=== PATIENT | female | born 1940 | race African-American/Black ===

== ENCOUNTER 2016-09-26 23:33 | Inpatient (IN) | payer MEDICARE, MEDICAID ==
[~2016-09-26] VITALS: Ht 170.2 cm; Wt 62.0 kg
[~2016-09-26 23:33] MED LIST: ALBU0.08 NEB; ASPI325T PO; CARV6.25 PO; FLUT1INH INH; FURO40TA PO; LISI-515 PO; NYST15T TOPICAL; SPIR25TA PO; VENTAER INH; ZOCO20TA PO
[2016-09-26 23:35] VITALS: O2SAT 96
[2016-09-26 23:37] VITALS: BP 144/84; PULSE 88; RESP 16; TEMP 98.7; O2SAT 100
[2016-09-26] MEDS ORDERED: RESP: ALBUTEROL 2.5 MG/IPRATROPIUM 0.5 MG NEB (SCH) INH ONE (23:45)
[2016-09-26] MEDS ORDERED: SODIUM CHLORIDE 0.9% FLUSH 10 ML FLUSH IVF PRN (23:45)
[2016-09-26 23:46] VITALS: O2SAT 96
[2016-09-26] MEDS ORDERED: ONDANSETRON HCL 4 MG/2 ML VIAL ONE (23:50)
--- NOTE | 2016-09-26 23:50 | PD ---
HPI Chief Complaint: Respiratory Distress Time Seen by Provider: 23:38 Travel History International Travel<30 days: No Contact w/Intl Traveler<30days: No Traveled to known affect area: No History of Present Illness HPI 76-year-old female presents to the emergency department by EMS transport from home for acute shortness of breath. Patient has history of recurrent CHF and COPD. According to paramedics patient did receive 1 nebulized treatment was identified to have rails and 60 mg of Lasix and one sublingual spray of nitroglycerin and placed on CPAP. Patient has clinically improved. Patient was reportedly diaphoretic. Patient here denies any pain except for some upper abdominal pain. That she cannot describe as far as intensity but it appears comfortable at this time. Patient has distal extremity edema. PFSH Past Medical History Narrative Medical Dyslipidemia CHF COPD CVA diabetes diverticulosis; partial colectomy, appendectomy hysterectomy; tobacco use: Nursing notes reviewed Hx Anticoagulant Therapy: Yes Arthritis: No Asthma: Yes Anxiety: Yes Depression: No Heart Rhythm Problems: No Cancer: No Cardiovascular Problems: Yes (PACEMAKER, CHF) High Cholesterol: Yes Chemotherapy: No Chest Pain: No Congestive Heart Failure: Yes COPD: Yes Cerebrovascular Accident: Yes Diabetes: Yes Patient Takes Glucophage: No Diminished Hearing: No Endocrine: No Gastrointestinal Disorders: Yes (DIVERTICULOSIS) GERD: No Glaucoma: No Genitourinary: No Headaches: No Hepatitis: No Hiatal Hernia: No Hypertension: Yes Immune Disorder: No Kidney Stones: No Musculoskeletal: No Neurologic: Yes Psychiatric: Yes Reproductive: Yes (LOWER ABDOMINAL PAIN) Respiratory: Yes (COPD) Immunizations Current: Yes Migraines: No Myocardial Infarction: No Radiation Therapy: No Renal Failure: No Seizures: No Sleep Apnea: No Thyroid Disease: No Ulcer: No ?: Not Menopausal: Yes : 8 Para: 8 Miscarriage: 0 : 0 Past Surgical History Abdominal Surgery: Yes (PARTIAL COLECTOMY FROM DIVERTICULITIS) AICD: No Appendectomy: Yes Arteriovenous Shunt: No Cardiac Surgery: No Cholecystectomy: Yes Ear Surgery: No Eye Surgery: No Genitourinary Surgery: No Gynecologic Surgery: Yes (HYSTERECTOMY - PT UNSURE IF THEY TOOK HER OVERIES) Hysterectomy: Yes (PARTIAL/2002) Insulin Pump: No Joint Replacement: No Oral Surgery: Yes (ALL TEETH REMOVED) Pacemaker: Yes (MEDTRONIC AF MRI IMPLANTED) Thoracic Surgery: No Other Surgery: Yes Social History Alcohol Use: No (HX OF ) Tobacco Use: Yes ("EVERY NOW AND THEN") Substance Use: No Allergies-Medications (Allergen,Severity, Reaction): Coded Allergies: Morphine (Verified Allergy, Intermediate, Itching, 04/25/16) Reported Meds & Prescriptions Reported Meds & Active Scripts Active Spironolactone 25 Mg Tab 25 Mg PO DAILY Coreg (Carvedilol) 6.25 Mg Tab 6.25 Mg PO Q12HR Aspirin 325 Mg Tab 325 Mg PO DAILY Albuterol Neb (Albuterol Sulfate) 2.5 Mg/3 Ml Neb 2.5 Mg NEB Q4HR PRN Ventolin Hfa 18 GM Inh (Albuterol Sulfate) 90 Mcg/Act Aer 2 Puff INH Q6H PRN Furosemide 40 Mg Tab 40 Mg PO BID Reported Zocor (Simvastatin) 20 Mg Tab 20 Mg PO HS Breo Ellipta Inh (Fluticasone/Vilanterol) 100-25 Mcg/Act Inh 1 Puff INH DAILY Use daily at the same time. Nystatin Topical (Nystatin) 100,000 unit/gm Cream 1 Applic TOPICAL BID Lisinopril 20 Mg Tab 20 Mg PO BID Review of Systems ROS Limitations: Clinical Condition, Poor Historian Physical Exam Narrative GENERAL: Elderly female and respiratory distress; GCS 15 SKIN: Warm and dry. HEAD: Normocephalic. EYES: No scleral icterus. No injection or drainage. NECK: Supple, trachea midline. No JVD or lymphadenopathy. CARDIOVASCULAR: Regular rate and rhythm without murmurs, gallops, or rubs. RESPIRATORY: Breath sounds equal bilaterally. No accessory muscle use. GASTROINTESTINAL: Abdomen soft, non-tender, nondistended. MUSCULOSKELETAL: No cyanosis, bilateral lower leg and pedal edema. BACK: Nontender without obvious deformity. No CVA tenderness. Data Data Last Documented VS Vital Signs Date Time Temp Pulse Resp B/P Pulse Ox O2 Delivery O2 Flow Rate FiO2 09/27/16 02:00 86 16 108/69 96 CPAP 40 09/26/16 23:37 98.7 Orders Complete Blood Count With Diff (09/26/16 23:38) Comprehensive Metabolic Panel (09/26/16 23:38) B-Type Natriuretic Peptide (09/26/16 23:38) Act Partial Throm Time (Ptt) (09/26/16 23:38) Prothrombin Time / Inr (Pt) (09/26/16 23:38) Magnesium (Mg) (09/26/16 23:38) Ckmb (Isoenzyme) Profile (09/26/16 23:38) Troponin I (09/26/16 23:38) Blood Culture (09/26/16 23:38) Iv Access Insert/Monitor (09/26/16 23:38) Electrocardiogram (09/26/16 23:38) Ecg Monitoring (09/26/16 23:38) Oximetry (09/26/16 23:38) Oxygen Administration (09/26/16 23:38) Chest, Single Ap (09/26/16 23:38) Sodium Chloride 0.9% Flush (Ns Flush) (09/26/16 23:45) Albuterol-Ipratropium Neb (Duoneb Neb) (09/26/16 23:45) Lactic Acid (09/26/16 23:38) Urinary Catheter Insert/Apply (09/26/16 23:38) Resp Bipap / Cpap Non Invas Vt (09/26/16 ) Urinalysis - C+S If Indicated (09/26/16 23:38) Ondansetron Inj (Zofran Inj) (09/27/16 00:00) Ondansetron Inj (Zofran Inj) (09/26/16 23:50) Urine Culture (09/26/16 23:50) CKMB (09/26/16 23:50) CKMB% (09/26/16 23:50) Ceftriaxone Inj (Rocephin Inj) (09/27/16 01:45) Arterial Blood Gas (Abg) (09/27/16 ) Admit Order (Ed Use Only) (09/27/16 ) ^ Saline Lock (09/27/16 02:22) Resp Oxygen Karsten C Titrat 1-4 L (09/27/16 ) Notify Dr: Other (09/27/16 02:22) Sodium Chloride 0.9% Flush (Ns Flush) (09/27/16 09:00) Sodium Chloride 0.9% Flush (Ns Flush) (09/27/16 02:30) Labs Laboratory Tests Test 09/26/16 09/27/16 23:50 01:40 White Blood Count 3.8 TH/MM3 Red Blood Count 4.08 MIL/MM3 Hemoglobin 12.2 GM/DL Hematocrit 39.7 % Mean Corpuscular Volume 97.4 FL Mean Corpuscular Hemoglobin 29.9 PG Mean Corpuscular Hemoglobin 30.7 % Concent Red Cell Distribution Width 16.4 % Platelet Count 119 TH/MM3 Mean Platelet Volume 10.7 FL Neutrophils (%) (Auto) 31.3 % Lymphocytes (%) (Auto) 44.0 % Monocytes (%) (Auto) 17.5 % Eosinophils (%) (Auto) 5.8 % Basophils (%) (Auto) 1.4 % Neutrophils # (Auto) 1.2 TH/MM3 Lymphocytes # (Auto) 1.7 TH/MM3 Monocytes # (Auto) 0.7 TH/MM3 Eosinophils # (Auto) 0.2 TH/MM3 Basophils # (Auto) 0.1 TH/MM3 CBC Comment DIFF FINAL Differential Comment Prothrombin Time 13.6 SEC Prothromb Time International 1.2 RATIO Ratio Activated Partial 23.1 SEC Thromboplast Time Urine Color YELLOW Urine Turbidity HAZY Urine pH 7.0 Urine Specific [place] 1.010 Urine Protein 300 mg/dL Urine Glucose (UA) TRACE mg/dL Urine Ketones NEG mg/dL Urine Occult Blood TRACE Urine Nitrite NEG Urine Bilirubin NEG Urine Urobilinogen LESS THAN 2.0 MG/DL Urine Leukocyte Esterase NEG Urine RBC 13 /hpf Urine WBC 9 /hpf Urine Squamous Epithelial 6 /hpf Cells Urine Bacteria OCC /hpf Urine Mucus MANY /lpf Microscopic Urinalysis Comment CATH-CULTURE IND Sodium Level 143 MEQ/L Potassium Level 3.8 MEQ/L Chloride Level 100 MEQ/L Carbon Dioxide Level 35.1 MEQ/L Anion Gap 8 MEQ/L Blood Urea Nitrogen 3 MG/DL Creatinine 0.92 MG/DL Estimat Glomerular Filtration 72 ML/MIN Rate Random Glucose 112 MG/DL Lactic Acid Level 4.7 mmol/L Calcium Level 8.4 MG/DL Magnesium Level 2.1 MG/DL Total Bilirubin 0.7 MG/DL Aspartate Amino Transf 35 U/L (AST/SGOT) Alanine Aminotransferase 22 U/L (ALT/SGPT) Alkaline Phosphatase 127 U/L Total Creatine Kinase 115 U/L Creatine Kinase MB 2.2 NG/ML Troponin I 0.11 NG/ML B-Type Natriuretic Peptide 2367 PG/ML Total Protein 6.9 GM/DL Albumin 3.5 GM/DL Blood Gas Puncture Site RT RADIAL Blood Gas Patient Temperature 98.6 Blood Gas HCO3 36 mmol/L Blood Gas Base Excess 8.3 mmol/L Blood Gas Oxygen Saturation 96 % Arterial Blood pH 7.23 Arterial Blood Partial 89 mmHg Pressure CO2 Arterial Blood Partial 135 mmHG Pressure O2 Arterial Blood Oxygen Content 16.9 Vol % Arterial Blood 2.4 % Carboxyhemoglobin Arterial Blood Methemoglobin 0.5 % Blood Gas Hemoglobin 12.3 G/DL Oxygen Delivery Device BIPAP Blood Gas Ventilator Setting IPAP=12 EPAP=6 Blood Gas Inspired Oxygen 50 % MDM Medical Decision Making Medical Screen Exam Complete: Yes Emergency Medical Condition: Yes Medical Record Reviewed: Yes Interpretation(s) Last Impressions Chest X-Ray 09/26/16 4938 Signed Impressions: Service Date/Time: September 23:53 - CONCLUSION: 1. Cardiomegaly. No acute pulmonary disease. Rod Gutierrez MD CBC & BMP Diagram 09/26/16 23:50 Vital Signs Date Time Temp Pulse Resp B/P Pulse Ox O2 Delivery O2 Flow Rate FiO2 09/26/16 23:46 96 35 09/26/16 23:45 BiPAP 09/26/16 23:40 20 09/26/16 23:37 98.7 88 16 144/84 100 09/26/16 23:35 96 50 abg: bipap 50% resp acidosis pH 7.23 PCO2 89 PO2 135 BiPAP 12/650% rate of 14; FiO2 decreased to 35% and rate increased to 20 Differential Diagnosis Dyspnea, CHF, COPD, ACS, MO,, pneumonia, thoracic/abdominal aortic aneurysm, dissection, mesenteric ischemia, colitis, diverticulitis, UTI, sepsis Narrative Course IV access obtained by EMS transport; patient placed on cardiac monitors; patient placed from CPAP to BiPAP; patient has artery received sublingual nitroglycerin spray 1, 60 mg of Lasix, albuterol treatments times one; lung sounds remained diminished with few rales additional DuoNeb 1 administered Lab values foundry grossly normal range except ABG for respiratory acidosis BiPAP parameters changed At 3:15 AM patient reports she feels clinically improved repeat ABG ordered Critical Care Narrative Aggregate critical care time was 35 minutes. Time to perform other separately billable procedures was not included in the critical care time. My time did not include minutes spent treating any other patients simultaneously or on activities that did not directly contribute to the patient's treatment. The services I provided to this patient were to treat and/or prevent clinically significant deterioration that could result in: Respiratory failure, arrhythmia , myocardial infarction, I provided critical care services requiring my management, as noted below: Chart data review, documentation time, medication orders and management, vital sign assessments/reviewing monitor data, ordering and reviewing lab tests, ordering and interpreting/reviewing x-rays and diagnostic studies, care of the patient and discussion of the patient with the admitting physicians. Physician Communication Physician Communication acceptyed by Dr Rosales Diagnosis Primary Impression: CHF (congestive heart failure) Qualified Code: I50.9 - Acute congestive heart failure, unspecified congestive heart failure type Additional Impressions: COPD (chronic obstructive pulmonary disease) Qualified Code: J43.9 - Pulmonary emphysema, unspecified emphysema type Elevated troponin I level Admitting Information Admitting Physician Requests: Admit Herminia Us MD Sep 26, 2016 23:50 Herminia Us MD Sep 26, 2016 23:50
[2016-09-27] VITALS (39 sets, daily range): BP systolic 92–110; BP diastolic 60–80; PULSE 66–96; RESP 11–24; TEMP 97.1–98.4; O2SAT 86–100
[2016-09-27] MEDS ORDERED: ONDANSETRON HCL 4 MG/2 ML VIAL IV PUSH ONE
[2016-09-27 00:01] LABS: AUTOMATED NEUTROPHIL # 1.2 TH/MM3 (1.8-7.7); BASOPHIL # 0.1 TH/MM3 (0-0.2); BASOPHIL % 1.4 % (0.0-2.0); EOSINOPHIL # 0.2 TH/MM3 (0-0.4); EOSINOPHIL % 5.8 % (0.0-4.0); HEMATOCRIT 39.7 % (35.0-46.0); HEMO FLAGS DIFF FINAL; LYMPHOCYTE # 1.7 TH/MM3 (1.0-4.8); MEAN CELL VOLUME 97.4 FL (80.0-100.0); MEAN CORPUSCULAR HEMOGLOBIN 29.9 PG (27.0-34.0); MEAN CORPUSCULAR HGB CONC 30.7 % (32.0-36.0); MONO % 17.5 % (0.0-8.0); NEUT % 31.3 % (16.0-70.0); PLATELET COUNT 119 TH/MM3 (150-450); RED BLOOD COUNT 4.08 MIL/MM3 (4.00-5.30); RED CELL DISTRIBUTION WIDTH 16.4 % (11.6-17.2); WHITE BLOOD COUNT 3.8 TH/MM3 (4.0-11.0)
[2016-09-27 00:11] LABS: APTT (PATIENT) 23.1 SEC (24.3-30.1); INTERNATIONAL NORMALIZED RATIO 1.2 RATIO; PROTHROMBIN TIME - PATIENT 13.6 SEC (9.8-11.6)
--- NOTE | 2016-09-27 00:19 | RADRPT ---
EXAM DATE/TIME: 09/26/2016 23:53 [facility] COMPARISON: CHEST SINGLE AP, April 25, 2016, 9:50. INDICATIONS : Pt having chest pain and shortness of breath. MEDICAL HISTORY : Chronic obstructive pulmonary disease. Congestive heart failure. SURGICAL HISTORY : Pacemaker. ENCOUNTER: Initial ACUITY: 1 day PAIN SCORE: 7/10 LOCATION: Bilateral chest FINDINGS: The cardiac silhouette is enlarged in transverse diameter. A defibrillator device is in place via a l eft sided approach. The lungs are free of acute parenchymal opacity. No effusions are identified. CONCLUSION: 1. Cardiomegaly. No acute pulmonary disease. Rod Gutierrez MD on September 27, 2016 at 0:17 Board Certified Radiologist. This report was verified electronically.
[2016-09-27 00:21] LABS: BACTERIA, URINE OCC /hpf; BLOOD, URINE TRACE (NEG); COMMENT (UR) CATH-CULTURE IND; CULTURE IF INDICATED CATH CULTURE IND; GLUCOSE,URINE TRACE mg/dL (NEG); KETONE, URINE NEG (NEG); MUCUS URINE MANY /lpf (OCC); NITRITE,URINE NEG (NEG); SQUAMOUS EPITHELIAL CELL URINE 6 /hpf (0-5); URINE COLOR YELLOW (YELLW/STRAW)
[2016-09-27 00:22] LABS: ALKALINE PHOSPHATASE 127 U/L (45-117); CREATINE KINASE 115 U/L (26-192); TOTAL BILIRUBIN ADULT 0.7 MG/DL (0.2-1.0)
[2016-09-27 00:25] LABS: ALT (GPT) 22 U/L (10-53); ANION GAP 8 MEQ/L (5-15); AST (GOT) 35 U/L (15-37); BICARBONATE 35.1 MEQ/L (21.0-32.0); BLOOD UREA NITROGEN 3 MG/DL (7-18); CHLORIDE 100 MEQ/L (98-107); GLOMERULAR FILTRATION RATE 72 ML/MIN (>89); MAGNESIUM 2.1 MG/DL (1.5-2.5); POTASSIUM 3.8 MEQ/L (3.5-5.1); SODIUM (NA) 143 MEQ/L (136-145)
[2016-09-27 00:34] LABS: CKMB 2.2 NG/ML (0.5-3.6)
[2016-09-27] MEDS ORDERED: cefTRIAXone INJ 1,000 MG in SODIUM CHLORIDE 0.9% INJ 100 ML IV ONE (01:45)
[2016-09-27 02:01] LABS: BLOOD GAS BASE EXCESS 8.3 mmol/L (-2-2); BLOOD GAS CARBOXYHEMOGLOBIN 2.4 % (0-4); BLOOD GAS HCO3 36 mmol/L (22-26); BLOOD GAS METHEMOGLOBIN 0.5 % (0-2); BLOOD GAS O2 HGB SATURATION 96 % (90-100); BLOOD GAS OXYGEN CONTENT 16.9 Vol % (12.0-20.0); BLOOD GAS PCO2 89 mmHg (38-42); BLOOD GAS PO2 135 mmHG (61-120); BLOOD GAS TOTAL HGB 12.3 G/DL (12.0-16.0); CRITICAL VALUE YES; OXYGEN DEVICE BIPAP; TEMP CORR TO 98.6
[2016-09-27 02:02] LABS: DRAW SITE RT RADIAL; FIO2 50 %; NUMBER OF ARTERIAL PUNCTURES 1; STAT YES; ULNAR PULSE PRESENT; VENT SETTINGS IPAP=12 EPAP=6
[2016-09-27] MEDS ORDERED: SODIUM CHLORIDE 0.9% FLUSH 10 ML FLUSH IV FLUSH PRN (02:30)
[2016-09-27] MEDS ORDERED: SODIUM CHLORIDE 0.9% FLUSH 10 ML FLUSH IVF PRN (02:30)
[2016-09-27] MEDS ORDERED: NALOXONE HCL 0.4 MG/ML AMP IV PRN (02:30)
[2016-09-27 03:27] LABS: BLOOD GAS BASE EXCESS 10.1 mmol/L (-2-2); BLOOD GAS CARBOXYHEMOGLOBIN 2.6 % (0-4); BLOOD GAS HCO3 37 mmol/L (22-26); BLOOD GAS METHEMOGLOBIN 0.6 % (0-2); BLOOD GAS O2 HGB SATURATION 93 % (90-100); BLOOD GAS OXYGEN CONTENT 16.8 Vol % (12.0-20.0); BLOOD GAS PCO2 86 mmHg (38-42); BLOOD GAS PO2 86 mmHG (61-120); BLOOD GAS TOTAL HGB 12.9 G/DL (12.0-16.0); CRITICAL VALUE YES; DRAW SITE RT FEMORAL; FIO2 40 %; NUMBER OF ARTERIAL PUNCTURES 1; OXYGEN DEVICE BIPAP; STAT YES; TEMP CORR TO 98.6; VENT SETTINGS IPAP=12 EPAP=6
--- NOTE | 2016-09-27 04:31 | HHI.HP ---
[facility] Physician Abeba Ramirez MD Admission Diagnosis CHF; copd; elevated troponin I Diagnoses: Chief Complaint: Shortness of breath Travel History International Travel<30 Days: No Contact w/Intl Traveler <30 Da: No Traveled to Known Affected Are: No History of Present Illness History from patient, your physician communication, and review of medical records. Patient reported that she came to the hospital because she was not able to breathe all of a sudden last night. She states that she has been coughing for past 2 days as well. Whitish sputum. No fever. Reports of diarrhea for past 2 days but only reports of once a day episodes. Reports initially that diarrhea was black in color. Nurse at the bedside stated that patient's major bowel movement which is soft and brown in color. could not breathe all of a sudden lst night Apart from the above, patient denies any chest pain/palpitations/dizziness/ syncopal episodes. Denies any hematemesis/hematochezia. Denies any blood in her urine. Next I denies any urinary burning or pain on urination. Patient was initially brought in by EMS on C Pap as she was found to be acutely dyspneic and struggling to breathe at home. He had given her 60 mg IV Lasix at that time. She has diuresed about 1 L total. In the emergency room, patient's blood gas revealed acute CO2 retention as well. However patient's mental status remains to be well. Patient states that she is chronically on 2 L nasal cannula at home at nighttime. Review of Systems Except as stated in HPI: all other systems reviewed are Neg Past Family Social History Past Medical History Hypertension Hyperlipidemia Diabetes COPDon home oxygen on 2 L at night CHFEF of 15-20% by echo March 2016 Status post AICD History of diverticulosis Past Surgical History Partial colectomy AICD placements Cholecystectomy Hysterectomy Allergies: Coded Allergies: Morphine (Verified Allergy, Intermediate, Itching, 04/25/16) Family History none that she coudl remember Social History smokes 5 cigarettes a day still denies etoh or drugs Physical Exam Vital Signs Vital Signs Date Time Temp Pulse Resp B/P Pulse Ox O2 Delivery O2 Flow Rate FiO2 09/27/16 03:45 95 4.00 09/27/16 03:00 88 18 106/66 93 CPAP 40 09/27/16 02:45 96 40 09/27/16 02:00 100 40 09/27/16 02:00 86 16 108/69 96 CPAP 40 09/27/16 01:00 72 11 98/64 98 CPAP 50 09/27/16 00:00 76 15 106/71 86 CPAP 35 09/26/16 23:46 96 35 09/26/16 23:45 BiPAP 09/26/16 23:40 20 09/26/16 23:37 98.7 88 16 144/84 100 09/26/16 23:35 96 50 Physical Exam GENERAL: This is a well-nourished, well-developed patient, in no apparent distress. On BiPAP. Quite comfortable. SKIN: No rashes, ecchymoses or lesions. Cool and dry. HEAD: Atraumatic. Normocephalic. No temporal or scalp tenderness. EYES: No scleral icterus. No injection or drainage. ENT: Nose without bleeding, purulent drainage or septal hematoma Airway patent. NECK: Trachea midline. No JVD Supple, nontender, no meningeal signs. CARDIOVASCULAR: Regular rate and rhythm without murmurs, gallops, or rubs. RESPIRATORY: Bilaterally decreased air entry. Limited exam due to BiPAP sounds. GASTROINTESTINAL: Abdomen soft, non-tender, nondistended. No guarding. MUSCULOSKELETAL: Extremities without clubbing, cyanosis, or edema. No calf tenderness. NEUROLOGICAL: Awake and alert. Motor and sensory grossly within normal limits Normal speech. Laboratory Laboratory Tests Test 09/26/16 09/27/16 09/27/16 23:50 01:40 03:20 White Blood Count 3.8 Red Blood Count 4.08 Hemoglobin 12.2 Hematocrit 39.7 Mean Corpuscular Volume 97.4 Mean Corpuscular Hemoglobin 29.9 Mean Corpuscular Hemoglobin 30.7 Concent Red Cell Distribution Width 16.4 Platelet Count 119 Mean Platelet Volume 10.7 Neutrophils (%) (Auto) 31.3 Lymphocytes (%) (Auto) 44.0 Monocytes (%) (Auto) 17.5 Eosinophils (%) (Auto) 5.8 Basophils (%) (Auto) 1.4 Neutrophils # (Auto) 1.2 Lymphocytes # (Auto) 1.7 Monocytes # (Auto) 0.7 Eosinophils # (Auto) 0.2 Basophils # (Auto) 0.1 CBC Comment DIFF FINAL Differential Comment Prothrombin Time 13.6 Prothromb Time International 1.2 Ratio Activated Partial 23.1 Thromboplast Time Urine Color YELLOW Urine Turbidity HAZY Urine pH 7.0 Urine Specific [place] 1.010 Urine Protein 300 Urine Glucose (UA) TRACE Urine Ketones NEG Urine Occult Blood TRACE Urine Nitrite NEG Urine Bilirubin NEG Urine Urobilinogen LESS THAN 2.0 Urine Leukocyte Esterase NEG Urine RBC 13 Urine WBC 9 Urine Squamous Epithelial 6 Cells Urine Bacteria OCC Urine Mucus MANY Microscopic Urinalysis Comment CATH-CULTURE IND Sodium Level 143 Potassium Level 3.8 Chloride Level 100 Carbon Dioxide Level 35.1 Anion Gap 8 Blood Urea Nitrogen 3 Creatinine 0.92 Estimat Glomerular Filtration 72 Rate Random Glucose 112 Lactic Acid Level 4.7 Calcium Level 8.4 Magnesium Level 2.1 Total Bilirubin 0.7 Aspartate Amino Transf 35 (AST/SGOT) Alanine Aminotransferase 22 (ALT/SGPT) Alkaline Phosphatase 127 Total Creatine Kinase 115 Creatine Kinase MB 2.2 Troponin I 0.11 B-Type Natriuretic Peptide 2367 Total Protein 6.9 Albumin 3.5 Blood Gas Puncture Site RT RADIAL RT FEMORAL Blood Gas Patient Temperature 98.6 98.6 Blood Gas HCO3 36 37 Blood Gas Base Excess 8.3 10.1 Blood Gas Oxygen Saturation 96 93 Arterial Blood pH 7.23 7.26 Arterial Blood Partial 89 86 Pressure CO2 Arterial Blood Partial 135 86 Pressure O2 Arterial Blood Oxygen Content 16.9 16.8 Arterial Blood 2.4 2.6 Carboxyhemoglobin Arterial Blood Methemoglobin 0.5 0.6 Blood Gas Hemoglobin 12.3 12.9 Oxygen Delivery Device BIPAP BIPAP Blood Gas Ventilator Setting IPAP=12 EPAP=6 IPAP=12 EPAP=6 Blood Gas Inspired Oxygen 50 40 Date/Time Procedure Status Source Growth 09/26/16 23:50 Urine Culture Worksheet Urine Catheterized Urine Pending 09/26/16 23:50 Aerobic Blood Culture Received Blood Peripheral Pending 09/26/16 23:50 Anaerobic Blood Culture Received Blood Peripheral Pending Result Diagram: 09/26/16 2350 09/26/16 2350 Imaging Last 48 hours Impressions Chest X-Ray 09/26/16 2338 Signed Impressions: Service Date/Time: September 23:53 - CONCLUSION: 1. Cardiomegaly. No acute pulmonary disease. Rod Gutierrez MD Assessment and Plan Problem List: (1) Acute systolic (congestive) heart failure ICD Code: I50.21 Status: Acute (2) SOB (shortness of breath) ICD Code: R06.02 Status: Acute Assessment and Plan Impression: Acute hypoxemic and hypercapnic respiratory failure Acute on chronic systolic heart failure COPD exacerbation Possible medications noncompliance. When asked about whether she is missing her diuretics doses at home, she answered yes. Plan: Serial cardiac enzymes and EKGs. Continue diuresis with Lasix 40 mg IV every 12 hours. Continue Aldactone. Continue nebulizers. Will monitor for fever and evidence of infection. Patient received Rocephin in ER. For now, I would not give antibiotics yet. Her main problem is more of CHF exacerbation. ABG results reviewed. Increased BiPAP to 15 with decrease of FiO2 to 35%. Will repeat ABG in about an hour after this setting changed. Otherwise resume home medications. DVT prophylaxiswith Lovenox. GI prophylaxison pantoprazole. Discussed Condition With Patient, ER physician, patient's nurse Physician Certification 2 Midnight Certification Type: Admission for Inpatient Services Order for Inpatient Services The services are ordered in accordance with Medicare regulations or non- Medicare payer requirements, as applicable. In the case of services not specified as inpatient-only, they are appropriately provided as inpatient services in accordance with the 2-midnight benchmark. Estimated LOS (days): 3 days is the estimated time the patient will need to remain in the hospital, assuming treatment plan goals are met and no additional complications. Post-Hospital Plan: Home Abraham Rosales MD Sep 27, 2016 04:31
[2016-09-27 04:50] LABS: CKMB 1.8 NG/ML (0.5-3.6)
[2016-09-27] MEDS ORDERED: RESP: ALBUTEROL 2.5 MG/IPRATROPIUM 0.5 MG NEB (PRN) NEB (05:45)
[2016-09-27] MEDS ORDERED: GLUCAGON 1 MG/ML VIAL OTHER PRN (06:00)
[2016-09-27] MEDS ORDERED: RESP: ALBUTEROL 2.5 MG/3 ML NEB (PRN) NEB (06:00)
[2016-09-27] MEDS ORDERED: methylPREDNISolone SOD SUCC 40 MG/1 ML VIAL IV PUSH SCH (06:00)
[2016-09-27] MEDS ORDERED: DEXTROSE 50% IN WATER 50 ML VIAL(D50) IV PRN (06:00)
[2016-09-27] MEDS: INSULIN ASPART SUPPLEMENTAL SCALE SQ SCH ×4 (06:08→22:02)
[2016-09-27 06:10] LABS: BLOOD GAS BASE EXCESS 9.3 mmol/L (-2-2); BLOOD GAS CARBOXYHEMOGLOBIN 2.8 % (0-4); BLOOD GAS HCO3 35 mmol/L (22-26); BLOOD GAS METHEMOGLOBIN 0.9 % (0-2); BLOOD GAS O2 HGB SATURATION 92 % (90-100); BLOOD GAS OXYGEN CONTENT 16.2 Vol % (12.0-20.0); BLOOD GAS PCO2 70 mmHg (38-42); BLOOD GAS PO2 83 mmHg (61-120); BLOOD GAS TOTAL HGB 12.4 G/DL (12.0-16.0); TEMP CORR TO 98.6
[2016-09-27 06:11] LABS: CRITICAL VALUE YES; OXYGEN DEVICE BIPAP
[2016-09-27 06:12] LABS: DRAW SITE RT BRACHIAL; FIO2 30 %; NUMBER OF ARTERIAL PUNCTURES 1; STAT NO; VENT SETTINGS IPAP15/EPAP5
[2016-09-27] MEDS: PANTOPRAZOLE SOD 40 MG DELAYED RELEASE TAB PO SCH (06:25)
[2016-09-27] MEDS: RESP: ALBUTEROL 2.5 MG/IPRATROPIUM 0.5 MG NEB (SCH) NEB ×3 (08:49→20:25)
[2016-09-27] MEDS ORDERED: FUROSEMIDE 40 MG/4 ML VIAL IV PUSH SCH (09:00)
[2016-09-27] MEDS ORDERED: SODIUM CHLORIDE 0.9% FLUSH 10 ML FLUSH IV FLUSH SCH (09:00)
[2016-09-27] MEDS: LISINOPRIL 20 MG TAB PO SCH ×2 (10:40→21:00)
[2016-09-27] MEDS: ENOXAPARIN SODIUM 40 MG/0.4 ML SYRINGE SQ SCH (10:40)
[2016-09-27] MEDS: CARVEDILOL 6.25 MG TAB PO SCH ×2 (10:40→21:00)
[2016-09-27] MEDS: ASPIRIN 325 MG TAB PO SCH (10:41)
[2016-09-27] MEDS: FLUTICASONE 100 MCG/VILANTEROL 25 MCG INHALER INH SCH (10:41)
[2016-09-27] MEDS: SODIUM CHLORIDE 0.9% FLUSH 10 ML FLUSH IV FLUSH SCH ×2 (10:41→20:41)
[2016-09-27] MEDS: SPIRONOLACTONE 25 MG TAB PO SCH (10:41)
--- NOTE | 2016-09-27 11:18 | HHI.PR ---
Subjective Remarks f/u SOB very good UO, -1.5 L overnight, patient feels better, on 4 L, baseline is 2 L, still coughing, lower extremity swelling better. Afebrile. Off BiPAP since 10 AM Objective Vitals Vital Signs Date Time Temp Pulse Resp B/P Pulse Ox O2 Delivery O2 Flow Rate FiO2 09/27/16 08:55 98 30 09/27/16 06:20 99 Bi-Pap 30 09/27/16 06:19 99 30 09/27/16 06:00 95 09/27/16 05:00 90 09/27/16 04:35 99 09/27/16 04:30 87 09/27/16 04:03 96 40 09/27/16 04:00 96 Bi-Pap 40 09/27/16 04:00 97.1 90 24 108/74 96 09/27/16 03:45 95 4.00 09/27/16 03:00 88 18 106/66 93 CPAP 40 09/27/16 02:45 96 40 09/27/16 02:00 100 40 09/27/16 02:00 86 16 108/69 96 CPAP 40 09/27/16 01:00 72 11 98/64 98 CPAP 50 09/27/16 00:00 76 15 106/71 86 CPAP 35 09/26/16 23:46 96 35 09/26/16 23:45 BiPAP 09/26/16 23:40 20 09/26/16 23:37 98.7 88 16 144/84 100 09/26/16 23:35 96 50 I/O 09/26/16 09/26/16 09/26/16 09/27/16 09/27/16 09/27/16 07:00 15:00 23:00 07:00 15:00 23:00 Intake Total 100 ml Output Total 2575 ml Balance -2475 ml Intake IV Total 100 ml Output Urine Total 2575 ml # Voids 0 # Bowel Movements 1 Result Diagram: 09/26/16234909/26/162349 Objective Remarks Not in distress, well-nourished, looks stated age, on oxygen via nasal cannula, coughing. PERRL, pink conjunctiva without injection, anicteric Nose without bleeding, airway patent, oropharynx clear Supple neck, no masses or thyromegaly, trachea midline Normal rate and regular rhythm, no murmurs gallops or rubs appreciated. Bilateral crackles at bases specially on the left Normal bowel sounds, soft, non-tender, nondistended, no guarding. Extremities without clubbing, cyanosis, 1+ edema No rash of generalized distribution. Skin is warm and dry. AAO x3, no cranial nerve deficits, moves all 4 extremities, no focal neurologic deficits Normal mood, appropriate affect A/P Problem List: (1) Acute systolic (congestive) heart failure ICD Code: I50.21 Status: Acute (2) SOB (shortness of breath) ICD Code: R06.02 Status: Acute Assessment and Plan This is a 76-year-old female presenting with acute shortness of breath Acute hypoxemic and hypercapnic respiratory failure secondary to acute and chronic systolic congestive heart failure-off BiPAP since 10 AM. Patient also has noncompliance. Chest x-ray unremarkable. Continue Aldactone, increase Lasix to every 8 hours, recheck BMP tomorrow. Monitor urine output. Echocardiogram in March 2016 showed ejection fraction of 15-20%. Continue Coreg and lisinopril. Doubt COPD exacerbation-continue nebulizers, BiPAP as needed. No steroids for now. No need for antibiotics. Hypercapnic respiratory failure-BiPAP as needed, Taper oxygen. Repeat ABG in a few hours. DVT prophylaxiswith Lovenox. GI prophylaxison pantoprazole. Discharge Planning On 2 L of oxygen at home, discharge in 1-2 days Lizzie Fabian MD Sep 27, 2016 11:18
[2016-09-27 12:09] LABS: BLOOD GAS CARBOXYHEMOGLOBIN 2.6 % (0-4); BLOOD GAS HCO3 34 mmol/L (22-26); BLOOD GAS O2 HGB SATURATION 88 % (90-100); BLOOD GAS OXYGEN CONTENT 15.1 Vol % (12.0-20.0); BLOOD GAS PCO2 72 mmHg (38-42); BLOOD GAS PO2 65 mmHg (61-120); BLOOD GAS TOTAL HGB 12.3 G/DL (12.0-16.0); TEMP CORR TO 98.6
[2016-09-27 12:10] LABS: CRITICAL VALUE YES; DRAW SITE RT BRACHIAL; LITER FLOW 4 L/M; NUMBER OF ARTERIAL PUNCTURES 2; OXYGEN DEVICE NASAL CANNULA; STAT NO
--- NOTE | 2016-09-27 12:19 | EKG ---
Date Performed: 09/26/2016 Time Performed: 23:54:33 PTAGE: 76 years EKG: Sinus rhythm WITH FIRST DEGREE AV BLOCK MARKED LEFT AXIS DEVIATION ANTEROSEPTAL MYOCARDIAL INFARCTION MODERATE T- WAVE ABNORMALITY, CONSIDER LATERAL ISCHEMIA ABNORMAL ECG Compared to prior tracing no significant donovan nge PREVIOUS TRACING : 04/25/2016 10.05 DOCTOR: Trevor Dominguez Interpretating Date/Time 09/27/2016 12:17:35
[2016-09-27] MEDS: FUROSEMIDE 40 MG/4 ML VIAL IV PUSH SCH (17:11)
[2016-09-27] MEDS ORDERED: SODIUM CHLORID 0.9% 500 ML INJ 500 ML IV ONE ×2 (20:15→22:15)
[2016-09-27 21:41] LABS: POTASSIUM 3.6 MEQ/L (3.5-5.1)
[2016-09-27 21:42] LABS: MAGNESIUM 1.6 MG/DL (1.5-2.5)
[2016-09-27] MEDS: PRAVASTATIN SOD 40 MG TAB PO SCH (22:00)
[2016-09-27] MEDS: cefTRIAXone INJ 1,000 MG in SODIUM CHLORIDE 0.9% INJ 100 ML IV SCH (22:01)
[2016-09-27] MEDS ORDERED: POTASSIUM CHLORIDE 20 MEQ CONTROLLED RELEASE TAB PO ONE (22:15)
[2016-09-28] VITALS (29 sets, daily range): BP systolic 79–94; BP diastolic 54–65; PULSE 70–93; RESP 16–20; TEMP 97.1–98.4; O2SAT 90–100
[2016-09-28] MEDS: FUROSEMIDE 40 MG/4 ML VIAL IV PUSH SCH (00:58)
[2016-09-28] MEDS: RESP: ALBUTEROL 2.5 MG/IPRATROPIUM 0.5 MG NEB (SCH) NEB ×4 (03:29→21:17)
[2016-09-28 05:33] LABS: AUTOMATED NEUTROPHIL # 2.5 TH/MM3 (1.8-7.7); BASOPHIL % 0.6 % (0.0-2.0); HEMATOCRIT 37.7 % (35.0-46.0); HEMO FLAGS DIFF FINAL; LYMPH % 15.7 % (9.0-44.0); LYMPHOCYTE # 0.6 TH/MM3 (1.0-4.8); MEAN CELL VOLUME 96.4 FL (80.0-100.0); MEAN CORPUSCULAR HEMOGLOBIN 30.3 PG (27.0-34.0); MEAN CORPUSCULAR HGB CONC 31.4 % (32.0-36.0); MONO % 14.2 % (0.0-8.0); NEUT % 69.5 % (16.0-70.0); PLATELET COUNT 107 TH/MM3 (150-450); RED BLOOD COUNT 3.91 MIL/MM3 (4.00-5.30); RED CELL DISTRIBUTION WIDTH 15.6 % (11.6-17.2); WHITE BLOOD COUNT 3.6 TH/MM3 (4.0-11.0)
[2016-09-28 05:44] LABS: BICARBONATE 37.6 MEQ/L (21.0-32.0)
[2016-09-28] MEDS: INSULIN ASPART SUPPLEMENTAL SCALE SQ SCH ×4 (06:01→20:26)
[2016-09-28] MEDS: PANTOPRAZOLE SOD 40 MG DELAYED RELEASE TAB PO SCH (06:01)
--- NOTE | 2016-09-28 08:23 | HHI.PR ---
Subjective Remarks f/u CHF and UTI patient had episodes of hypotension overnight, given bolus of NS, afebrile, denies any dysuria, frequency or urgency prior to admission. Shortness of breath is better, cough is better. Objective Vitals Vital Signs Date Time Temp Pulse Resp B/P Pulse Ox O2 Delivery O2 Flow Rate FiO2 09/28/16 07:00 100 Bi-Pap 09/28/16 07:00 87 09/28/16 07:00 97.1 72 18 83/65 100 09/28/16 06:00 75 09/28/16 05:00 80 09/28/16 04:02 100 30 09/28/16 04:00 92 09/28/16 03:30 97.5 71 20 91/64 100 09/28/16 03:30 99 Bi-Pap 40 09/28/16 03:00 87 09/28/16 02:00 83 09/28/16 01:05 97 40 09/28/16 01:00 87 09/28/16 00:00 86 09/27/16 23:05 97.4 91 20 100/67 99 09/27/16 23:05 99 Bi-Pap 40 09/27/16 23:00 83 09/27/16 23:00 100 BiPAP 40 09/27/16 23:00 100 40 09/27/16 22:00 92 09/27/16 21:00 78 09/27/16 20:26 98 40 09/27/16 20:00 72 09/27/16 19:30 97.5 86 18 94/63 98 09/27/16 19:30 98 Bi-Pap 40 09/27/16 19:00 76 09/27/16 18:21 70 09/27/16 17:29 94 09/27/16 16:23 83 09/27/16 15:51 99 Bi-Pap 40 09/27/16 15:44 96 40 09/27/16 15:40 97.4 77 16 96/67 99 09/27/16 15:00 79 09/27/16 14:00 84 09/27/16 13:00 66 09/27/16 12:23 95 Bi-Pap 40 09/27/16 12:23 93 40 09/27/16 12:05 98.4 92 16 92/60 96 09/27/16 12:04 95 09/27/16 11:57 95 Nasal Cannula 4.00 09/27/16 11:00 91 09/27/16 10:00 90 09/27/16 09:00 96 09/27/16 08:55 98 30 I/O 09/27/16 09/27/16 09/27/16 09/28/16 09/28/16 09/28/16 07:00 15:00 23:00 07:00 15:00 23:00 Intake Total 100 ml 720 ml 2060 ml Output Total 2575 ml 1100 ml 1400 ml Balance -2475 ml -380 ml 660 ml Intake Oral 720 ml 960 ml IV Total 100 ml 1100 ml Output Urine Total 2575 ml 1100 ml 1400 ml # Voids 0 # Bowel Movements 1 0 Result Diagram: 09/28/1645609/28/16456 Objective Remarks Not in distress, well-nourished, looks stated age, on oxygen via nasal cannula, coughing. PERRL, pink conjunctiva without injection, anicteric Nose without bleeding, airway patent, oropharynx clear Supple neck, no masses or thyromegaly, trachea midline Normal rate and regular rhythm, no murmurs gallops or rubs appreciated. Bilateral crackles at bases specially on the left Normal bowel sounds, soft, non-tender, nondistended, no guarding. Extremities without clubbing, cyanosis, 1+ edema No rash of generalized distribution. Skin is warm and dry. AAO x3, no cranial nerve deficits, moves all 4 extremities, no focal neurologic deficits Normal mood, appropriate affect A/P Problem List: (1) Acute systolic (congestive) heart failure ICD Code: I50.21 Status: Acute (2) SOB (shortness of breath) ICD Code: R06.02 Status: Acute Assessment and Plan This is a 76-year-old female presenting with acute shortness of breath Acute hypoxemic and hypercapnic respiratory failure secondary to acute and chronic systolic congestive heart failure-off BiPAP since 09/27/16. Patient also noncompliant with diuretics. Chest x-ray unremarkable. Monitor BMP. Monitor urine output. Echocardiogram in March 2016 showed ejection fraction of 15-20%. Continue Coreg, hold lisinopril. Hold diuretics for now. Doubt COPD exacerbation-continue nebulizers, BiPAP as needed. No steroids for now. Sepsis secondary to UTI-patient has leukopenia, hypotension and borderline tachycardia with urine culture growing gram-negative rods. Given IVF. Because of CHF, needs to be very careful with volume resuscitation, patient may be mildly hypotensive as baseline with ejection fraction of about 15%. Ceftriaxone for now, follow-up final urine culture and sensitivities, check lactic acid. Hypercapnic respiratory failure-BiPAP as needed, Taper oxygen. ABG stable Mild troponin elevation-likely demand mediated, flat, denies any chest pain. Mildly elevated creatinine-continue IVF, recheck BMP tomorrow. DVT prophylaxiswith Lovenox. GI prophylaxison pantoprazole. Discharge Planning On 2 L of oxygen at home, discharge in 1-2 days, start physical therapy Lizzie Fabian MD Sep 28, 2016 08:23
[2016-09-28] MEDS ORDERED: MAGNESIUM SULFATE 1 GM PREMIX 100 ML IV ONE (09:00)
[2016-09-28] MEDS ORDERED: methylPREDNISolone SOD SUCC 40 MG/1 ML VIAL IV PUSH SCH (09:00)
[2016-09-28] MEDS: SODIUM CHLORIDE 0.9% FLUSH 10 ML FLUSH IV FLUSH SCH ×2 (09:09→20:30)
[2016-09-28] MEDS: CARVEDILOL 6.25 MG TAB PO SCH ×2 (09:10→20:30)
[2016-09-28] MEDS: ENOXAPARIN SODIUM 40 MG/0.4 ML SYRINGE SQ SCH (09:10)
[2016-09-28] MEDS: ASPIRIN 325 MG TAB PO SCH (09:10)
[2016-09-28] MEDS: FLUTICASONE 100 MCG/VILANTEROL 25 MCG INHALER INH SCH (09:13)
[2016-09-28] MEDS: PRAVASTATIN SOD 40 MG TAB PO SCH (20:28)
[2016-09-29] VITALS (28 sets, daily range): BP systolic 80–110; BP diastolic 39–73; PULSE 73–92; RESP 15–18; TEMP 97.6–98.6; O2SAT 93–97
[2016-09-29] MEDS: cefTRIAXone INJ 1,000 MG in SODIUM CHLORIDE 0.9% INJ 100 ML IV SCH ×2 (00:21→22:06)
[2016-09-29] MEDS: RESP: ALBUTEROL 2.5 MG/IPRATROPIUM 0.5 MG NEB (SCH) NEB ×4 (03:05→20:15)
[2016-09-29] MEDS: PANTOPRAZOLE SOD 40 MG DELAYED RELEASE TAB PO SCH (05:45)
[2016-09-29 05:48] LABS: AUTOMATED NEUTROPHIL # 2.2 TH/MM3 (1.8-7.7); BASOPHIL # 0.1 TH/MM3 (0-0.2); BASOPHIL % 1.3 % (0.0-2.0); EOSINOPHIL # 0.1 TH/MM3 (0-0.4); EOSINOPHIL % 3.4 % (0.0-4.0); HEMO FLAGS DIFF FINAL; LYMPH % 28.2 % (9.0-44.0); LYMPHOCYTE # 1.2 TH/MM3 (1.0-4.8); MEAN CELL VOLUME 95.2 FL (80.0-100.0); MEAN CORPUSCULAR HEMOGLOBIN 30.1 PG (27.0-34.0); MEAN CORPUSCULAR HGB CONC 31.6 % (32.0-36.0); MONO % 13.2 % (0.0-8.0); NEUT % 53.9 % (16.0-70.0); PLATELET COUNT 107 TH/MM3 (150-450); RED CELL DISTRIBUTION WIDTH 15.9 % (11.6-17.2); WHITE BLOOD COUNT 4.2 TH/MM3 (4.0-11.0)
[2016-09-29] MEDS: INSULIN ASPART SUPPLEMENTAL SCALE SQ SCH ×4 (05:48→21:00)
[2016-09-29 06:01] LABS: POTASSIUM 3.4 MEQ/L (3.5-5.1)
[2016-09-29] MEDS: ENOXAPARIN SODIUM 40 MG/0.4 ML SYRINGE SQ SCH (08:31)
[2016-09-29] MEDS: CARVEDILOL 6.25 MG TAB PO SCH ×2 (08:31→22:05)
[2016-09-29] MEDS: ASPIRIN 325 MG TAB PO SCH (08:31)
[2016-09-29] MEDS: SODIUM CHLORIDE 0.9% FLUSH 10 ML FLUSH IV FLUSH SCH ×2 (08:32→22:05)
[2016-09-29] MEDS: FLUTICASONE 100 MCG/VILANTEROL 25 MCG INHALER INH SCH (08:32)
[2016-09-29] MEDS ORDERED: NITR100C4 PO (08:58)
--- NOTE | 2016-09-29 09:07 | HHI.PR ---
Subjective Remarks f/u CHF and UTI patient feels almost back to normal, denies SOB, no urinary symptoms, afebrile, cough has resolved, wants to go home, borderline hypotensive, manual check SBP 110s now Objective Vitals Vital Signs Date Time Temp Pulse Resp B/P Pulse Ox O2 Delivery O2 Flow Rate FiO2 09/29/16 08:00 87 09/29/16 07:00 92 09/29/16 07:00 93 Nasal Cannula 3.00 09/29/16 07:00 97.9 79 16 80/39 93 09/29/16 06:26 85 09/29/16 05:11 88 09/29/16 04:00 88 09/29/16 03:13 94 Nasal Cannula 3.00 09/29/16 03:13 97.9 83 18 Automatic Cuff 94 09/29/16 03:13 79 09/29/16 02:46 82 09/29/16 01:06 90 09/29/16 00:52 84 09/28/16 23:15 90 Nasal Cannula 3.00 09/28/16 23:15 98.0 82 16 94/62 90 09/28/16 23:00 90 09/28/16 22:45 Nasal Cannula 3.00 09/28/16 22:00 82 09/28/16 21:21 94 30 09/28/16 21:00 76 09/28/16 20:04 98.3 84 16 79/54 93 92/55 09/28/16 20:04 93 Nasal Cannula 3.00 09/28/16 20:04 74 09/28/16 18:00 83 09/28/16 17:00 75 09/28/16 16:00 70 09/28/16 15:00 100 Bi-Pap 09/28/16 15:00 98.4 83 18 86/59 95 09/28/16 15:00 86 09/28/16 14:00 84 09/28/16 13:00 86 09/28/16 12:00 90 09/28/16 11:00 100 Bi-Pap 09/28/16 11:00 83 09/28/16 11:00 98.2 86 18 82/55 95 09/28/16 10:43 92 Nasal Cannula 3.00 09/28/16 10:00 81 I/O 6/3/17 609/28/16 09/29/16 09/29/16 09/29/16 07:00 15:00 23:00 07:00 15:00 23:00 Intake Total 2060 ml 720 ml 460 ml Output Total 1400 ml 300 ml 800 ml Balance 660 ml 420 ml -340 ml Intake Oral 960 ml 720 ml 360 ml IV Total 1100 ml 100 ml Output Urine Total 1400 ml 300 ml 800 ml # Bowel Movements 0 Result Diagram: 09/29/16 04109/29/16411 Objective Remarks Not in distress, well-nourished, looks stated age, on oxygen via nasal cannula, coughing resolved. PERRL, pink conjunctiva without injection, anicteric Normal rate and regular rhythm, no murmurs gallops or rubs appreciated. Occasional crackles on the left base. Normal bowel sounds, soft, non-tender, nondistended, no guarding. Extremities without clubbing, cyanosis, trace to 1+ edema No rash of generalized distribution. Skin is warm and dry. AAO x3, no cranial nerve deficits, moves all 4 extremities, no focal neurologic deficits Normal mood, appropriate affect A/P Problem List: (1) Acute systolic (congestive) heart failure ICD Code: I50.21 Status: Acute (2) SOB (shortness of breath) ICD Code: R06.02 Status: Acute Assessment and Plan This is a 76-year-old female presenting with acute shortness of breath Acute hypoxemic and hypercapnic respiratory failure secondary to acute and chronic systolic congestive heart failure-off BiPAP since 09/27/16. Patient also noncompliant with diuretics. Chest x-ray unremarkable. Monitor BMP. Monitor urine output. Echocardiogram in March 2016 showed ejection fraction of 15-20%. BNP elevated again, difficult volume evaluation since patient is borderline hypotensive but with crackles. Continue Coreg, resume low-dose lisinopril, resume Aldactone and Lasix. It appears that patient has chronic borderline hypotension because of CHF based on previous admissions. Blood pressure is 20 units higher using manual. Recheck BMP tomorrow. Doubt COPD exacerbation-continue nebulizers, BiPAP as needed. No steroids for now. Sepsis secondary to UTI-patient has leukopenia, hypotension and borderline tachycardia with urine culture growing gram-negative rods. Status post IVF. Because of CHF, needs to be very careful with volume resuscitation, patient may be mildly hypotensive as baseline with ejection fraction of about 15%. Urine culture grew Klebsiella sensitive to Macrobid. Stop ceftriaxone, start Macrobid. Lactic acid is negative. Blood culture one out of 4 bottles growing gram-positive pleomorphic rods and gram-positive cocci in chains and clusters. Likely contaminant. Follow-up blood culture tomorrow. Repeat CBC in the morning, remove Ward catheter. Hypercapnic respiratory failure-BiPAP as needed, Taper oxygen. ABG stable, on 2 L at home. Taper. Mild troponin elevation-likely demand mediated, flat, denies any chest pain. Mildly elevated creatinine -recheck BMP tomorrow DVT prophylaxiswith Lovenox. GI prophylaxison pantoprazole. Discharge Planning On 2 L of oxygen at home, discharge tomorrow with home healthcare if blood culture remains to same/contaminant and medically stable Lizzie Fabian MD Sep 29, 2016 09:07
[2016-09-29] MEDS: NITROFURANTOIN MONOHYD MACROCR 100 MG CAP PO SCH ×2 (09:34→18:23)
[2016-09-29] MEDS: FUROSEMIDE 40 MG TAB PO SCH ×2 (09:34→18:24)
[2016-09-29] MEDS: SPIRONOLACTONE 25 MG TAB PO SCH (09:35)
[2016-09-29] MEDS: LISINOPRIL 5 MG TAB PO SCH (09:35)
[2016-09-29] MEDS: PRAVASTATIN SOD 40 MG TAB PO SCH (22:05)
[2016-09-30] VITALS (18 sets, daily range): BP systolic 99–117; BP diastolic 57–74; PULSE 77–96; RESP 18–19; TEMP 97.7–98.2; O2SAT 93–99
[2016-09-30] MEDS: RESP: ALBUTEROL 2.5 MG/IPRATROPIUM 0.5 MG NEB (SCH) NEB ×2 (03:17→08:22)
[2016-09-30 06:42] LABS: AUTOMATED NEUTROPHIL # 1.7 TH/MM3 (1.8-7.7); BASOPHIL # 0.1 TH/MM3 (0-0.2); BASOPHIL % 1.8 % (0.0-2.0); EOSINOPHIL # 0.2 TH/MM3 (0-0.4); EOSINOPHIL % 5.1 % (0.0-4.0); HEMATOCRIT 36.9 % (35.0-46.0); HEMO FLAGS DIFF FINAL; LYMPHOCYTE # 1.2 TH/MM3 (1.0-4.8); MEAN CORPUSCULAR HEMOGLOBIN 29.9 PG (27.0-34.0); MEAN CORPUSCULAR HGB CONC 31.5 % (32.0-36.0); MONO % 15.1 % (0.0-8.0); PLATELET COUNT 110 TH/MM3 (150-450); RED BLOOD COUNT 3.88 MIL/MM3 (4.00-5.30); RED CELL DISTRIBUTION WIDTH 15.5 % (11.6-17.2); WHITE BLOOD COUNT 3.7 TH/MM3 (4.0-11.0)
[2016-09-30] MEDS: INSULIN ASPART SUPPLEMENTAL SCALE SQ SCH ×2 (06:49→11:00)
[2016-09-30] MEDS: PANTOPRAZOLE SOD 40 MG DELAYED RELEASE TAB PO SCH (06:52)
[2016-09-30 07:02] LABS: BICARBONATE 41.6 MEQ/L (21.0-32.0); POTASSIUM 3.4 MEQ/L (3.5-5.1)
[2016-09-30] MEDS: ASPIRIN 325 MG TAB PO SCH (08:54)
--- NOTE | 2016-09-30 08:54 | HHI.FF ---
Face to Face Verification Diagnosis: (1) CHF (congestive heart failure) (2) COPD (chronic obstructive pulmonary disease) (3) SOB (shortness of breath) (4) Elevated troponin I level Physical Therapy Order: Evaluate and Treat, Improve ambulation, Strength and gait training Home Health Nursing Order: Medical education Signs/symptoms of disease process CHF education Oxygen administration education Nursing assessment with vital signs I have seen patient Kapil Chapa on 09/30/16. My clinical findings support the need for the requested home health care services because: Patient has SOB Deconditioned w/ increased weakness Limited ability to care for self I certify that my clinical findings support that this patient is homebound because: Hx COPD- exertion dyspnea/weakness Poor cardiac reserve Ammy Koch MD Sep 30, 2016 08:54
[2016-09-30] MEDS: LISINOPRIL 5 MG TAB PO SCH (08:56)
[2016-09-30] MEDS: CARVEDILOL 6.25 MG TAB PO SCH (08:56)
[2016-09-30] MEDS: NITROFURANTOIN MONOHYD MACROCR 100 MG CAP PO SCH (08:56)
[2016-09-30] MEDS: ENOXAPARIN SODIUM 40 MG/0.4 ML SYRINGE SQ SCH (08:56)
[2016-09-30] MEDS: FUROSEMIDE 40 MG TAB PO SCH (08:56)
[2016-09-30] MEDS: SPIRONOLACTONE 25 MG TAB PO SCH (08:57)
[2016-09-30] MEDS: SODIUM CHLORIDE 0.9% FLUSH 10 ML FLUSH IV FLUSH SCH (08:59)
[2016-09-30] MEDS: FLUTICASONE 100 MCG/VILANTEROL 25 MCG INHALER INH SCH (08:59)
--- NOTE | 2016-09-30 12:35 | HHI.DS ---
Discharge Summary Admission Date Sep 27, 2016 at 02:24 Discharge Date: Sep 30, 2016 Admitting Diagnosis CHF; copd; elevated troponin I (1) Acute systolic (congestive) heart failure ICD Code: I50.21 (2) SOB (shortness of breath) ICD Code: R06.02 Procedures None Brief History - From Admission History from patient, your physician communication, and review of medical records. Patient reported that she came to the hospital because she was not able to breathe all of a sudden last night. She states that she has been coughing for past 2 days as well. Whitish sputum. No fever. Reports of diarrhea for past 2 days but only reports of once a day episodes. Reports initially that diarrhea was black in color. Nurse at the bedside stated that patient's major bowel movement which is soft and brown in color. could not breathe all of a sudden lst night Apart from the above, patient denies any chest pain/palpitations/dizziness/ syncopal episodes. Denies any hematemesis/hematochezia. Denies any blood in her urine. Next I denies any urinary burning or pain on urination. Patient was initially brought in by EMS on C Pap as she was found to be acutely dyspneic and struggling to breathe at home. He had given her 60 mg IV Lasix at that time. She has diuresed about 1 L total. In the emergency room, patient's blood gas revealed acute CO2 retention as well. However patient's mental status remains to be well. Patient states that she is chronically on 2 L nasal cannula at home at nighttime. CBC/BMP: 09/30/16 0555 09/30/16 0555 Significant Findings Laboratory Tests Test 09/28/16 09/29/16 09/30/16 04:57 04:12 05:55 White Blood Count 3.6 TH/MM3 3.7 TH/MM3 (4.0-11.0) (4.0-11.0) Red Blood Count 3.91 MIL/MM3 3.88 MIL/MM3 (4.00-5.30) (4.00-5.30) Mean Corpuscular Hemoglobin 31.4 % 31.6 % 31.5 % Concent (32.0-36.0) (32.0-36.0) (32.0-36.0) Platelet Count 107 TH/MM3 107 TH/MM3 110 TH/MM3 (150-450) (150-450) (150-450) Monocytes (%) (Auto) 14.2 % 13.2 % 15.1 % (0.0-8.0) (0.0-8.0) (0.0-8.0) Lymphocytes # (Auto) 0.6 TH/MM3 (1.0-4.8) Carbon Dioxide Level 37.6 MEQ/L 39.0 MEQ/L 41.6 MEQ/L (21.0-32.0) (21.0-32.0) (21.0-32.0) Anion Gap 2 MEQ/L (5-15) 3 MEQ/L (5-15) 3 MEQ/L (5-15) Creatinine 1.14 MG/DL 1.05 MG/DL (0.50-1.00) (0.50-1.00) Estimat Glomerular Filtration 56 ML/MIN (>89) 62 ML/MIN (>89) 80 ML/MIN (>89) Rate Random Glucose 128 MG/DL (74-106) Calcium Level 8.2 MG/DL 8.2 MG/DL (8.5-10.1) (8.5-10.1) B-Type Natriuretic Peptide 1119 PG/ML 585 PG/ML (0-100) (0-100) Potassium Level 3.4 MEQ/L 3.4 MEQ/L (3.5-5.1) (3.5-5.1) Chloride Level 94 MEQ/L 95 MEQ/L (98-107) (98-107) Eosinophils (%) (Auto) 5.1 % (0.0-4.0) Neutrophils # (Auto) 1.7 TH/MM3 (1.8-7.7) Imaging Last Impressions Chest X-Ray 09/26/16 4684 Signed Impressions: Service Date/Time: September 23:53 - CONCLUSION: 1. Cardiomegaly. No acute pulmonary disease. Rod Gutierrez MD PE at Discharge Not in distress, well-nourished, looks stated age, on oxygen via nasal cannula. PERRL, pink conjunctiva without injection, anicteric Normal rate and regular rhythm, no murmurs gallops or rubs appreciated. Occasional crackles on the left base. Normal bowel sounds, soft, non-tender, nondistended, no guarding. Extremities without clubbing, cyanosis, trace to 1+ edema No rash of generalized distribution. Skin is warm and dry. AAO x3, no cranial nerve deficits, moves all 4 extremities, no focal neurologic deficits Normal mood, appropriate affect Pt update on day of discharge Patient reports she is feeling back to her normal self. Breathing is at baseline. No chest pain. She wants to be discharged home. She is agreeable to home health services. Hospital Course 76-year-old female admitted with acute shortness of breath. Evaluation and treatment course detailed below: Acute hypoxemic and hypercapnic respiratory failure secondary to acute and chronic systolic congestive heart failure-off BiPAP since 09/27/16. Patient also noncompliant with diuretics. Chest x-ray unremarkable. Monitor BMP. Monitor urine output. Echocardiogram in March 2016 showed ejection fraction of 15-20%. BNP elevated again, difficult volume evaluation since patient is borderline hypotensive but with crackles. Continue Coreg, low-dose lisinopril, resume Aldactone and Lasix. It appears that patient has chronic borderline hypotension because of CHF based on previous admissions. She remained asymptomatic with a blood pressure in the 90s over 60s. Lisinopril was held due to the low blood pressure. Patient is advised to follow-up outpatient with PCP and noted to restart lisinopril when indicated. Doubt COPD exacerbation-continue nebulizers, BiPAP as needed. No steroids. Respiratory status improved with treatment of CHF exacerbation. Sepsis secondary to UTI-patient has leukopenia, hypotension and borderline tachycardia with urine culture growing gram-negative rods. Status post IVF. Urine culture grew Klebsiella sensitive to Macrobid. Stop ceftriaxone, start Macrobid. Lactic acid is negative. Blood culture one out of 4 bottles growing gram-positive pleomorphic rods and gram-positive cocci in chains and clusters. Likely contaminant. Discussed with microbiology. Mild troponin elevation-likely demand mediated, flat, denies any chest pain. Mildly elevated creatinine -likely from CHF. Resolved Pt Condition on Discharge: Good Discharge Disposition: Disch w/ Home Health Serv Discharge Time: > 30 minutes Discharge Instructions DIET: Follow Instructions for: Heart Healthy Diet Activities you can perform: Regular-No Restrictions Follow up Referrals: PCP Follow-up New Medications: Nitrofurantoin Monohydrate Macrocrystals (Nitrofurantoin Monohydrate Macrocrystals) 100 Mg Cap 100 MG PO BIDPC UTI #12 CAP Continued Medications: Albuterol 18 GM Inh (Ventolin Hfa 18 GM Inh) 90 Mcg/Act Aer 2 PUFF INH Q6H PRN SHORTNESS OF BREATH #1 Ref 0 INHALER Albuterol Neb (Albuterol Neb) 2.5 Mg/3 Ml Neb 2.5 MG NEB Q4HR PRN SHORTNESS OF BREATH #1 Ref 0 NEBULE Aspirin (Aspirin) 325 Mg Tab 325 MG PO DAILY #30 TAB Carvedilol (Coreg) 6.25 Mg Tab 6.25 MG PO Q12HR #60 TAB Fluticasone-Vilanterol Inh (Breo Ellipta Inh) 100-25 Mcg/Act Inh 1 PUFF INH DAILY Use daily at the same time. #1 Ref 0 INHALER Furosemide (Furosemide) 40 Mg Tab 40 MG PO BID #60 Ref 0 TAB Nystatin Topical (Nystatin Topical) 100,000 unit/gm Cream 1 APPLIC TOPICAL BID Infection #15 Ref 0 GM Simvastatin (Zocor) 20 Mg Tab 20 MG PO HS Cholesterol Management #30 Ref 0 TAB Spironolactone (Spironolactone) 25 Mg Tab 25 MG PO DAILY #30 Ref 0 TAB Discontinued Medications: Lisinopril (Lisinopril) 20 Mg Tab 20 MG PO BID #30 Ref 0 TAB Ammy Koch MD Sep 30, 2016 12:35
== END 2016-09-30 13:30 | disposition home health service (06) | DRG 871 ==
LOC: NEPC 23:33 → NEDA 09-27 02:24 → HCIN 09-27 03:45
PROVIDERS: ADMIT Family Medicine; ATTEND Family Medicine
DX: A41.9 Sepsis, unspecified organism (principal); J96.01 Acute respiratory failure with hypoxia; I50.23 Acute on chronic systolic (congestive) heart failure; N39.0 Urinary tract infection, site not specified; I11.0 Hypertensive heart disease with heart failure; J44.9 Chronic obstructive pulmonary disease, unspecified; E78.5 Hyperlipidemia, unspecified; F41.9 Anxiety disorder, unspecified; F17.210 Nicotine dependence, cigarettes, uncomplicated; B96.1 Klebsiella pneumoniae [K. pneumoniae] as the cause of diseases classified elsewhere; Z99.81 Dependence on supplemental oxygen; Z91.14 Patient's other noncompliance with medication regimen; Z95.810 Presence of automatic (implantable) cardiac defibrillator
CPT/HCPCS: 36600; 51702; 71010; 80048; 80053; 81001; 82550; 82552; 82805; 82948; 83605; 83735; 83880; 84132; 84484; 85025; 85610; 85730; 87040; 87077; 87086; 87186; 87205; 93005; 94003; 94640; 94664; 96374; J0696; J1650; J1815; J1940; J2405; J2920; J3475; J7040

== ENCOUNTER 2016-11-08 17:55 | Observation (INO) | payer OTHER, MEDICAID ==
[~2016-11-08] VITALS: Ht 170.2 cm; Wt 66.0 kg
[~2016-11-08 17:55] MED LIST changes: -LISI-515 PO; +NITR100C4 PO
[2016-11-08 19:47] VITALS: BP 113/79; PULSE 78; RESP 20; TEMP 98.7
[2016-11-08 20:02] VITALS: BP 113/79; PULSE 72; RESP 22; O2SAT 99
[2016-11-08 20:14] VITALS: RESP 20; O2SAT 98
[2016-11-08] MEDS ORDERED: SODIUM CHLORIDE 0.9% FLUSH 10 ML FLUSH IVF PRN (20:15)
[2016-11-08 20:24] LABS: AUTOMATED NEUTROPHIL # 1.5 TH/MM3 (1.8-7.7); BASOPHIL % 1.5 % (0.0-2.0); EOSINOPHIL # 0.1 TH/MM3 (0-0.4); EOSINOPHIL % 2.2 % (0.0-4.0); HEMATOCRIT 37.6 % (35.0-46.0); HEMO FLAGS DIFF FINAL; LYMPH % 29.2 % (9.0-44.0); LYMPHOCYTE # 0.9 TH/MM3 (1.0-4.8); MEAN CELL VOLUME 94.2 FL (80.0-100.0); MEAN CORPUSCULAR HEMOGLOBIN 30.7 PG (27.0-34.0); MEAN CORPUSCULAR HGB CONC 32.6 % (32.0-36.0); MONO % 20.9 % (0.0-8.0); NEUT % 46.2 % (16.0-70.0); PLATELET COUNT 119 TH/MM3 (150-450); RED BLOOD COUNT 3.99 MIL/MM3 (4.00-5.30); RED CELL DISTRIBUTION WIDTH 15.1 % (11.6-17.2); WHITE BLOOD COUNT 3.2 TH/MM3 (4.0-11.0)
[2016-11-08 20:30] LABS: APTT (PATIENT) 26.6 SEC (24.3-30.1); INTERNATIONAL NORMALIZED RATIO 1.3 RATIO; PROTHROMBIN TIME - PATIENT 14.4 SEC (9.8-11.6)
--- NOTE | 2016-11-08 20:36 | RADRPT ---
EXAM DATE/TIME: 11/08/2016 20:09 [facility] COMPARISON: No previous studies available for comparison. INDICATIONS : Shortness of breath. MEDICAL HISTORY : None. SURGICAL HISTORY : Pacemaker. ENCOUNTER: Initial ACUITY: 2 days PAIN SCORE: 0/10 LOCATION: Bilateral chest FINDINGS: Mild airspace opacities are seen in both bases, probably mild pulmonary edema. No large effusion seen . Mild to moderate cardiomegaly is unchanged. Cardiac pacer/defibrillator again noted. CONCLUSION: Mild bibasilar consolidation/edema. Unchanged mild to moderate cardiomegaly. Edward Montoya MD on November 08, 2016 at 20:33 Board Certified Radiologist. This report was verified electronically.
[2016-11-08] MEDS: RESP: ALBUTEROL 2.5 MG/IPRATROPIUM 0.5 MG NEB (SCH) INH (20:37)
[2016-11-08 20:40] LABS: ANION GAP 4 MEQ/L (5-15); AST (GOT) 40 U/L (15-37); BICARBONATE 36.6 MEQ/L (21.0-32.0); BLOOD UREA NITROGEN 8 MG/DL (7-18); CHLORIDE 98 MEQ/L (98-107); GLOMERULAR FILTRATION RATE 67 ML/MIN (>89); MAGNESIUM 1.8 MG/DL (1.5-2.5); POTASSIUM 3.3 MEQ/L (3.5-5.1); SODIUM (NA) 139 MEQ/L (136-145)
[2016-11-08 20:41] LABS: ALT (GPT) 23 U/L (10-53)
--- NOTE | 2016-11-08 20:43 | PD ---
HPI Chief Complaint: Respiratory Symptoms Time Seen by Provider: 20:23 Travel History International Travel<30 days: No Contact w/Intl Traveler<30days: No Traveled to known affect area: No History of Present Illness HPI 76-year-old female woke up at 4 AM with shortness of breath. She states her last flare of her COPD was 2 months ago. She states she feels worse when she moves around. She states that when her nephew cooks with certain spices she feels that makes her symptoms worse. She states she feels a little better after her treatments. She denies any other concurrent complaints to me. Quality is hard to catch breath. Severity is constant per patient. She presents by ambulance. She states she wears 2 L of oxygen at home all the time. PFSH Past Medical History Hx Anticoagulant Therapy: Yes Arthritis: No Asthma: Yes Anxiety: Yes Depression: No Heart Rhythm Problems: No Cancer: No Cardiovascular Problems: Yes (PACEMAKER, CHF) High Cholesterol: Yes Chemotherapy: No Chest Pain: Yes Congestive Heart Failure: Yes COPD: Yes Cerebrovascular Accident: Yes Diabetes: Yes Patient Takes Glucophage: No Diminished Hearing: No Endocrine: No Gastrointestinal Disorders: Yes (DIVERTICULOSIS) GERD: No Glaucoma: No Genitourinary: No Headaches: No Hepatitis: No Hiatal Hernia: No Hypertension: Yes Immune Disorder: No Kidney Stones: No Musculoskeletal: Yes Neurologic: Yes Psychiatric: Yes Reproductive: No Respiratory: Yes (COPD) Immunizations Current: Yes Migraines: No Myocardial Infarction: No Radiation Therapy: No Renal Failure: No Seizures: No Sleep Apnea: No Thyroid Disease: No Ulcer: No Tetanus Vaccination: > 5 Years Influenza Vaccination: Yes ?: Not Menopausal: Yes : 8 Para: 8 Miscarriage: 0 : 0 Past Surgical History Abdominal Surgery: Yes (PARTIAL COLECTOMY FROM DIVERTICULITIS, appendectomy) AICD: No Appendectomy: Yes Arteriovenous Shunt: No Cardiac Surgery: No Cholecystectomy: Yes Ear Surgery: No Endocrine Surgery: No Eye Surgery: No Genitourinary Surgery: No Gynecologic Surgery: Yes (HYSTERECTOMY - PT UNSURE IF THEY TOOK HER OVERIES) Hysterectomy: Yes Insulin Pump: No Joint Replacement: No Oral Surgery: Yes (ALL TEETH REMOVED) Pacemaker: Yes (MEDTRONIC AF MRI IMPLANTED) Thoracic Surgery: No Other Surgery: Yes Social History Alcohol Use: No (HX OF ) Tobacco Use: Yes Substance Use: No Allergies-Medications (Allergen,Severity, Reaction): Coded Allergies: Morphine (Verified Allergy, Intermediate, Itching, 11/08/16) Reported Meds & Prescriptions Reported Meds & Active Scripts Active Spironolactone 25 Mg Tab 25 Mg PO DAILY Aspirin 325 Mg Tab 325 Mg PO DAILY Albuterol Neb (Albuterol Sulfate) 2.5 Mg/3 Ml Neb 2.5 Mg NEB Q4HR PRN Ventolin Hfa 18 GM Inh (Albuterol Sulfate) 90 Mcg/Act Aer 2 Puff INH Q6H PRN Furosemide 40 Mg Tab 40 Mg PO BID Reported Zocor (Simvastatin) 20 Mg Tab 20 Mg PO HS Breo Ellipta Inh (Fluticasone/Vilanterol) 100-25 Mcg/Act Inh 1 Puff INH DAILY Use daily at the same time. Review of Systems Except as stated in HPI: all other systems reviewed are Neg Physical Exam Narrative GENERAL: Well-nourished, well-developed patient. SKIN: Warm and dry. HEAD: Normocephalic and atraumatic. EYES: No injection or drainage. ENT: No nasal drainage noted. NECK: Supple, trachea midline. CARDIOVASCULAR: Regular rate and rhythm RESPIRATORY: Decreased aeration bilaterally. No accessory muscle use. GASTROINTESTINAL: Abdomen soft, non-tender, nondistended. NEUROLOGICAL: Awake and alert. Moves all extremities. Normal speech. Data Data Last Documented VS Vital Signs Date Time Temp Pulse Resp B/P Pulse Ox O2 Delivery O2 Flow Rate FiO2 11/08/16 20:14 20 98 Nasal Cannula 2 11/08/16 20:02 72 113/79 11/08/16 19:47 98.7 Orders Complete Blood Count With Diff (11/08/16 20:02) Comprehensive Metabolic Panel (11/08/16 20:02) B-Type Natriuretic Peptide (11/08/16 20:02) Act Partial Throm Time (Ptt) (11/08/16 20:02) Prothrombin Time / Inr (Pt) (11/08/16 20:02) Magnesium (Mg) (11/08/16 20:02) Ckmb (Isoenzyme) Profile (11/08/16 20:02) Troponin I (11/08/16 20:02) Iv Access Insert/Monitor (11/08/16 20:02) Electrocardiogram (11/08/16 20:02) Ecg Monitoring (11/08/16 20:02) Oximetry (11/08/16 20:02) Chest, Single Ap (11/08/16 20:02) Sodium Chloride 0.9% Flush (Ns Flush) (11/08/16 20:15) Methylprednisolone So Succ Inj (Solumedr (11/08/16 20:45) Albuterol-Ipratropium Neb (Duoneb Neb) (11/08/16 20:45) CKMB (11/08/16 20:05) CKMB% (11/08/16 20:05) Furosemide Inj (Lasix Inj) (11/08/16 21:30) Aspirin (Aspirin) (11/08/16 21:45) Potassium Chloride Eff (K-Lyte Cl Eff) (11/08/16 21:45) Labs Laboratory Tests Test 11/08/16 20:05 White Blood Count 3.2 TH/MM3 Red Blood Count 3.99 MIL/MM3 Hemoglobin 12.3 GM/DL Hematocrit 37.6 % Mean Corpuscular Volume 94.2 FL Mean Corpuscular Hemoglobin 30.7 PG Mean Corpuscular Hemoglobin 32.6 % Concent Red Cell Distribution Width 15.1 % Platelet Count 119 TH/MM3 Mean Platelet Volume 10.9 FL Neutrophils (%) (Auto) 46.2 % Lymphocytes (%) (Auto) 29.2 % Monocytes (%) (Auto) 20.9 % Eosinophils (%) (Auto) 2.2 % Basophils (%) (Auto) 1.5 % Neutrophils # (Auto) 1.5 TH/MM3 Lymphocytes # (Auto) 0.9 TH/MM3 Monocytes # (Auto) 0.7 TH/MM3 Eosinophils # (Auto) 0.1 TH/MM3 Basophils # (Auto) 0.0 TH/MM3 CBC Comment DIFF FINAL Differential Comment Prothrombin Time 14.4 SEC Prothromb Time International 1.3 RATIO Ratio Activated Partial 26.6 SEC Thromboplast Time Sodium Level 139 MEQ/L Potassium Level 3.3 MEQ/L Chloride Level 98 MEQ/L Carbon Dioxide Level 36.6 MEQ/L Anion Gap 4 MEQ/L Blood Urea Nitrogen 8 MG/DL Creatinine 0.98 MG/DL Estimat Glomerular Filtration 67 ML/MIN Rate Random Glucose 75 MG/DL Calcium Level 8.9 MG/DL Magnesium Level 1.8 MG/DL Total Bilirubin 1.1 MG/DL Aspartate Amino Transf 40 U/L (AST/SGOT) Alanine Aminotransferase 23 U/L (ALT/SGPT) Alkaline Phosphatase 128 U/L Total Creatine Kinase 113 U/L Creatine Kinase MB 1.6 NG/ML Troponin I 0.09 NG/ML B-Type Natriuretic Peptide 2835 PG/ML Total Protein 7.2 GM/DL Albumin 3.7 GM/DL MDM Medical Decision Making Medical Screen Exam Complete: Yes Emergency Medical Condition: Yes Medical Record Reviewed: Yes (past history confirmed) Interpretation(s) EKG appears regular, T wave inversion aVL and V6, lead [address] segment elevation or depression CBC & BMP Diagram 11/08/16 20:05 Last 24 hours Impressions Chest X-Ray 11/08/162001 Signed Impressions: Service Date/Time: Tuesday, November 08, 2016 20:09 - CONCLUSION: Mild bibasilar consolidation/edema. Unchanged mild to moderate cardiomegaly. Edward Montoya MD Differential Diagnosis COPD, pneumothorax, pneumonia, anemia, renal failure Narrative Course Will check blood work, chest x-ray, EKG and dose with DuoNeb's and Solu-Medrol and reevaluate After review of BNP and chest x-ray she is also having concurrent CHF exacerbation. Will dose with aspirin, Lasix and potassium replacement and admit to the hospital for further care, no active chest pain Physician Communication Physician Communication dr vizcarra agrees to admit Diagnosis Primary Impression: Acute systolic (congestive) heart failure Additional Impression: COPD (chronic obstructive pulmonary disease) Qualified Code: J44.1 - Chronic obstructive pulmonary disease with acute exacerbation Admitting Information Admitting Physician Requests: Observation Abril Page MD Nov 08, 2016 20:43
[2016-11-08] MEDS ORDERED: methylPREDNISolone SOD SUCC 125 MG/2 ML VIAL IVP ONE (20:45)
[2016-11-08 20:47] LABS: ALKALINE PHOSPHATASE 128 U/L (45-117); CREATINE KINASE 113 U/L (26-192); TOTAL BILIRUBIN ADULT 1.1 MG/DL (0.2-1.0)
[2016-11-08 21:00] LABS: CKMB 1.6 NG/ML (0.5-3.6)
[2016-11-08] MEDS ORDERED: FUROSEMIDE 40 MG/4 ML VIAL IV PUSH ONE (21:30)
[2016-11-08] MEDS ORDERED: ASPIRIN 325 MG TAB PO ONE (21:45)
[2016-11-08] MEDS ORDERED: POTASSIUM CHLORIDE 25 MEQ EFFERVESCENT TAB PO ONE (21:45)
--- NOTE | 2016-11-08 22:13 | HHI.HP ---
HPI Service [facility] Primary Care Physician Abeba Ramirez MD Admission Diagnosis chf and copd exacerbation Diagnoses: (1) COPD (chronic obstructive pulmonary disease) Diagnosis: Principal (2) CHF (congestive heart failure) Diagnosis: Principal (3) Elevated troponin I level Diagnosis: Principal (4) Thrombocytopenia Diagnosis: Principal (5) Hypokalemia Diagnosis: Principal Travel History International Travel<30 Days: No Contact w/Intl Traveler <30 Da: No Traveled to Known Affected Are: No History of Present Illness This is a 76-year-old female with a PMH of COPD, O2 Dependent, CHF (Echo w/ EF 15-20%), Pacemaker, Hyperlipidemia and Tobacco Abuse who was brought to the ER by EMS secondary to SOB. O2 sat 98% on 2L NC per EMS, placed on 4L NC w/ O2 sat 100%. Normally on 2L NC continuous at home. Denies fever, chills , cough or chest pain. On arrival, BP 113/79, HR 78, O2 sat 99% on 2L NC, Afebrile. CBC essentially baseline. Platelets 119, previously 110 on 09/30/16. Chemistry essentially unremarkable. K+ 3.3. Trop 0.09. BNP 2835. INR 1.3. CXR with mild bibasilar consolidation/edema. S/p Solu-Medrol, DuoNeb, Lasix 40mg IV x1 in ER w/ some improvement in symptoms. Review of Systems Except as stated in HPI: all other systems reviewed are Neg ROS: 14 point review of systems otherwise negative. Past Family Social History Past Medical History PMH: COPD, O2 Dependent, CHF (Echo 04/25/16 w/ EF 15-20%), Pacemaker, Hyperlipidemia and Tobacco Abuse Past Surgical History PAST SURGICAL HISTORY: Partial Colectomy, Appendectomy, Cholecystectomy, Hysterectomy, Pacemaker Allergies: Coded Allergies: Morphine (Verified Allergy, Intermediate, Itching, 11/08/16) Family History PAST FAMILY HISTORY: Reviewed. No h/o DM or CAD Social History PAST SOCIAL HISTORY: Negative for alcohol or drugs. Positive for tobacco abuse. Physical Exam Vital Signs Vital Signs Date Time Temp Pulse Resp B/P Pulse Ox O2 Delivery O2 Flow Rate FiO2 11/08/16 20:14 20 98 Nasal Cannula 2 11/08/16 20:02 72 22 113/79 99 Nasal Cannula 2 11/08/16 20:00 22 99 Nasal Cannula 2 11/08/16 19:47 98.7 78 20 113/79 Physical Exam PE: GENERAL: Pleasant elderly black female in no acute distress. HEENT: PERRLA, EOMI. No scleral icterus or conjunctival pallor. No lid lag or facial droop. CARDIOVASCULAR: Regular rate and rhythm. No obvious murmurs to auscultation. No chest tenderness to palpation. RESPIRATORY: No obvious rhonchi or wheezing. Clear to auscultation. Decreased breath sounds bilaterally. GASTROINTESTINAL: Abdomen soft, non-tender, nondistended. BS normal. MUSCULOSKELETAL: Extremities without clubbing, cyanosis, or edema. No obvious deformities. NEUROLOGICAL: Awake, alert and oriented x4. No focal neurologic deficits. Moving both upper and lower extremities spontaneously. Laboratory Laboratory Tests Test 11/08/16 20:05 White Blood Count 3.2 Red Blood Count 3.99 Hemoglobin 12.3 Hematocrit 37.6 Mean Corpuscular Volume 94.2 Mean Corpuscular Hemoglobin 30.7 Mean Corpuscular Hemoglobin 32.6 Concent Red Cell Distribution Width 15.1 Platelet Count 119 Mean Platelet Volume 10.9 Neutrophils (%) (Auto) 46.2 Lymphocytes (%) (Auto) 29.2 Monocytes (%) (Auto) 20.9 Eosinophils (%) (Auto) 2.2 Basophils (%) (Auto) 1.5 Neutrophils # (Auto) 1.5 Lymphocytes # (Auto) 0.9 Monocytes # (Auto) 0.7 Eosinophils # (Auto) 0.1 Basophils # (Auto) 0.0 CBC Comment DIFF FINAL Differential Comment Prothrombin Time 14.4 Prothromb Time International 1.3 Ratio Activated Partial 26.6 Thromboplast Time Sodium Level 139 Potassium Level 3.3 Chloride Level 98 Carbon Dioxide Level 36.6 Anion Gap 4 Blood Urea Nitrogen 8 Creatinine 0.98 Estimat Glomerular Filtration 67 Rate Random Glucose 75 Calcium Level 8.9 Magnesium Level 1.8 Total Bilirubin 1.1 Aspartate Amino Transf 40 (AST/SGOT) Alanine Aminotransferase 23 (ALT/SGPT) Alkaline Phosphatase 128 Total Creatine Kinase 113 Creatine Kinase MB 1.6 Troponin I 0.09 B-Type Natriuretic Peptide 2835 Total Protein 7.2 Albumin 3.7 Result Diagram: 11/08/16200411/08/162004 Assessment and Plan Problem List: (1) COPD (chronic obstructive pulmonary disease) ICD Code: J44.9 Status: Acute (2) CHF (congestive heart failure) ICD Code: I50.9 Status: Acute (3) Elevated troponin I level ICD Code: R79.89 Status: Acute (4) Hypokalemia ICD Code: E87.6 Status: Acute (5) Thrombocytopenia ICD Code: D69.6 Status: Acute Assessment and Plan A/P: 1. COPD: Chronic Respiratory Failure w/ Acute Exacerbation, s/p Solu-Medrol/ DuoNeb in ER, will continue w/ Solu-Medrol, DuoNeb, Symbicort, O2 as needed, O2 Dependent at home 2. CHF: Acute on Chronic. Systolic. Echo 04/25/16 w/ EF 15-20%. BNP 2835. CXR w/ mild bibasilar consolidation/edema, images reviewed by me. S/p Lasix 40mg IV in ER, continue w/ Lasix 40mg IV bid, check BNP in am. 3. Elevated Trop: Trop 0.09, no c/o chest pain, elevation likely secondary to CHF. Will monitor on telemetry, check serial cardiac enzymes, Statin, ASA. 4. Hypokalemia: Mild. K+ 3.3, s/p replacement, will recheck and replace as needed. 5. Thrombocytopenia: Chronic. Stable. Platelets 119, previously 110 on . No active bleeding. Will monitor. Recheck in am. 6. DVT Prophylaxis: SCD/Teds. 7. Social work for d/c planning as needed. 8. Case discussed w/ ER physician at length. Problem Qualifiers (1) COPD (chronic obstructive pulmonary disease): Qualified Code: J44.1 - Chronic obstructive pulmonary disease with acute exacerbation Mena Ramírez MD Nov 08, 2016 22:13
[2016-11-08] MEDS ORDERED: ONDANSETRON HCL 4 MG/2 ML VIAL IVP PRN (22:15)
[2016-11-08] MEDS ORDERED: SENNOSIDES 8.6 MG TAB PO PRN (22:15)
[2016-11-08] MEDS ORDERED: BISACODYL 10 MG SUPP RECTAL PRN (22:15)
[2016-11-08] MEDS ORDERED: MAGNESIUM HYDROXIDE SUSP 30 ML CUP PO PRN (22:15)
[2016-11-08] MEDS ORDERED: RESP: ALBUTEROL 2.5 MG/IPRATROPIUM 0.5 MG NEB (PRN) NEB (22:15)
[2016-11-08] MEDS ORDERED: SODIUM CHLORIDE 0.9% FLUSH 10 ML FLUSH IV FLUSH PRN (22:15)
[2016-11-08] MEDS ORDERED: ACETAMINOPHEN 325 MG TAB PO PRN (22:15)
[2016-11-08] MEDS ORDERED: LACTULOSE SYRUP 20 GM/30 ML CUP PO PRN (22:15)
[2016-11-08 23:47] VITALS: BP 110/74; PULSE 99; RESP 18; O2SAT 97
[2016-11-09] VITALS (9 sets, daily range): BP systolic 115–135; BP diastolic 74–85; PULSE 95–102; RESP 16–18; TEMP 96.9–98; O2SAT 95–98
[2016-11-09] MEDS: methylPREDNISolone SOD SUCC 40 MG/1 ML VIAL IV PUSH SCH ×2 (00:14→06:12)
[2016-11-09] MEDS ORDERED: RESP: ALBUTEROL 2.5 MG/IPRATROPIUM 0.5 MG NEB (SCH) NEB (08:00)
--- NOTE | 2016-11-09 08:19 | HHI.PR ---
Subjective Remarks Follow-up for shortness of breath. The patient states she started having shortness of breath yesterday morning. She has noticed her legs are more swollen lately. She has noted that she's having more shortness breath when she lies flat. She states she tries to avoid salt, but has been eating a lot of popsicles lately and admits to nonadherence with fluid restrictions. She denies any wheezing, fever, chills, recent illness. She does not recall who her heart doctor is. Objective Vitals Vital Signs Date Time Temp Pulse Resp B/P Pulse Ox O2 Delivery O2 Flow Rate FiO2 11/09/16 04:22 96 11/09/16 03:58 98.0 95 17 115/75 97 11/09/16 01:20 98.0 102 18 125/77 95 11/08/16 23:47 99 18 110/74 97 Room Air 11/08/16 20:14 20 98 Nasal Cannula 2 11/08/16 20:02 72 22 113/79 99 Nasal Cannula 2 11/08/16 20:00 22 99 Nasal Cannula 2 11/08/16 19:47 98.7 78 20 113/79 Result Diagram: 11/08/16200411/08/162004 Imaging Last Impressions Chest X-Ray 11/08/162001 Signed Impressions: Service Date/Time: Tuesday, November 08, 2016 20:09 - CONCLUSION: Mild bibasilar consolidation/edema. Unchanged mild to moderate cardiomegaly. Edward Montoya MD Objective Remarks GENERAL: Well-developed well-nourished. In no acute distress. SKIN: Warm and dry. No lesions noted. HEENT: Normocephalic. Pupils equal and round. Mucous membranes pink and moist. JVD. CARDIOVASCULAR: Regular rate and rhythm. No murmur appreciated. RESPIRATORY: No accessory muscle use. Diminished breath sounds bilaterally. No wheezing or crackles noted. GASTROINTESTINAL: Abdomen soft, non-tender, nondistended. Bowel sounds x4. MUSCULOSKELETAL: No obvious deformities. No clubbing or cyanosis. Trace lower extremity edema bilaterally, L>R. NEUROLOGICAL: Awake and alert. No focal neurological deficits. Moves upper and lower extremities spontaneously. Normal speech. PSYCHIATRIC: Appropriate mood and affect; insight and judgment normal. A/P Problem List: (1) COPD (chronic obstructive pulmonary disease) ICD Code: J44.9 Status: Acute (2) CHF (congestive heart failure) ICD Code: I50.9 Status: Acute (3) Elevated troponin I level ICD Code: R79.89 Status: Acute (4) Hypokalemia ICD Code: E87.6 Status: Acute Assessment and Plan 76-year-old female with a PMH of COPD, O2 Dependent, CHF (Echo 04/25/16 w/ EF 15 -20%), Pacemaker, Hyperlipidemia and Tobacco Abuse who presented secondary to SOB COPD: Chronic Respiratory Failure on home O2. Possible Acute Exacerbation. Continue short course of oral prednisone. DuoNebs prn. O2 as needed. Acute exacerbation of chronic systolic CHF: Echo 04/25/16 w/ EF 15-20%. BNP 2835, previously 585 on 09/29/16. CXR w/ mild bibasilar consolidation/edema. Continue diuresis w/ Lasix 40mg IV bid. Monitor intake and output. Admits to noncompliance with fluid restrictions, patient educated. Continue home Aldactone. Not on beta alonso, possibly secondary to noncompliance or due to COPD, follow up with cardiology as outpatient. Follow-up BMP and BNP. Elevated Trop: Trop 0.09 2, trending. No c/o chest pain, elevation likely secondary to CHF. Will monitor on telemetry, check serial cardiac enzymes, Statin, ASA. Hypokalemia: Mild. K+ 3.3, s/p replacement, will recheck and replace as needed. Thrombocytopenia: Chronic. Stable. Platelets 119, previously 110 on 09/30/16. No active bleeding. Will monitor. DVT Prophylaxis: SCD/Teds. Discharge Planning Monitor clinical response to diuresis. Discharge planning when improved, possibly tomorrow. Problem Qualifiers (1) COPD (chronic obstructive pulmonary disease): Qualified Code: J44.1 - Chronic obstructive pulmonary disease with acute exacerbation (2) CHF (congestive heart failure): Qualified Code: I50.23 - Acute on chronic systolic congestive heart failure Husam Hoang Nov 09, 2016 08:19
[2016-11-09] MEDS ORDERED: FUROSEMIDE 40 MG/4 ML VIAL IV PUSH SCH (09:00)
[2016-11-09 09:53] LABS: BASOPHIL % 0.2 % (0.0-2.0); EOSINOPHIL % 0.1 % (0.0-4.0); HEMATOCRIT 40.2 % (35.0-46.0); HEMO FLAGS DIFF FINAL; LYMPH % 14.9 % (9.0-44.0); LYMPHOCYTE # 0.4 TH/MM3 (1.0-4.8); MEAN CELL VOLUME 95.5 FL (80.0-100.0); MEAN CORPUSCULAR HEMOGLOBIN 30.8 PG (27.0-34.0); MEAN CORPUSCULAR HGB CONC 32.2 % (32.0-36.0); MONO % 1.7 % (0.0-8.0); NEUT % 83.1 % (16.0-70.0); PLATELET COUNT 135 TH/MM3 (150-450); RED BLOOD COUNT 4.21 MIL/MM3 (4.00-5.30); RED CELL DISTRIBUTION WIDTH 15.3 % (11.6-17.2); WHITE BLOOD COUNT 2.4 TH/MM3 (4.0-11.0)
[2016-11-09] MEDS: DOCUSATE SODIUM 50 MG/SENNA 8.6 MG TAB PO SCH ×2 (09:55→23:22)
[2016-11-09] MEDS: ASPIRIN 325 MG TAB PO SCH (09:55)
[2016-11-09] MEDS: ENOXAPARIN SODIUM 40 MG/0.4 ML SYRINGE SQ SCH (09:55)
[2016-11-09] MEDS: predniSONE 20 MG TAB PO SCH ×2 (09:55→23:22)
[2016-11-09] MEDS: SPIRONOLACTONE 25 MG TAB PO SCH (09:56)
[2016-11-09] MEDS: BUDESONIDE-FORMOTEROL 160/4.5 MCG INHALER INH SCH ×2 (09:56→23:23)
[2016-11-09] MEDS: SODIUM CHLORIDE 0.9% FLUSH 10 ML FLUSH IV FLUSH SCH ×2 (09:56→21:00)
[2016-11-09 10:59] LABS: ALKALINE PHOSPHATASE 141 U/L (45-117); ALT (GPT) 25 U/L (10-53); ANION GAP 8 MEQ/L (5-15); AST (GOT) 37 U/L (15-37); BICARBONATE 32.2 MEQ/L (21.0-32.0); BLOOD UREA NITROGEN 14 MG/DL (7-18); CHLORIDE 97 MEQ/L (98-107); GLOMERULAR FILTRATION RATE 48 ML/MIN (>89); POTASSIUM 3.8 MEQ/L (3.5-5.1); SODIUM (NA) 137 MEQ/L (136-145); TOTAL BILIRUBIN ADULT 1.1 MG/DL (0.2-1.0)
--- NOTE | 2016-11-09 13:41 | EKG ---
Date Performed: 11/08/2016 Time Performed: 19:56:51 PTAGE: 76 years EKG: Normal Sinus rhythm MARKED LEFT AXIS DEVIATION LEFT VENTRICULAR HYPERTROPHY AND ST-T CHANGE POSSIBLE ANTEROSEPTAL MYOCAR DIAL INFARCTION ABNORMAL ECG PREVIOUS TRACING : 09/26/2016 23.54 Since prior tracing, sinus rate has slowed. DOCTOR: Evin Snyder Interpretating Date/Time 11/09/2016 13:40:37
[2016-11-09] MEDS ORDERED: DEXTROSE 50% IN WATER 50 ML VIAL(D50) IV PRN (18:15)
[2016-11-09] MEDS ORDERED: GLUCAGON 1 MG/ML VIAL OTHER PRN (18:15)
[2016-11-09] MEDS ORDERED: PRAVASTATIN SOD 40 MG TAB PO SCH (21:00)
[2016-11-09] MEDS: INSULIN ASPART SUPPLEMENTAL SCALE SQ SCH (21:00)
[2016-11-09 23:11] LABS: BLOOD, URINE SMALL (NEG); GLUCOSE,URINE NEG (NEG); KETONE, URINE NEG (NEG); NITRITE,URINE NEG (NEG); SQUAMOUS EPITHELIAL CELL URINE 3 /hpf (0-5); URINE COLOR YELLOW (YELLW/STRAW)
[2016-11-09 23:25] LABS: COMMENT (UR) CULT NOT INDICATED; CULTURE IF INDICATED CULT NOT INDICATED
[2016-11-10 03:39] VITALS: BP 116/77; PULSE 102; RESP 17; TEMP 97.6; O2SAT 100
[2016-11-10 07:15] VITALS: PULSE 100
[2016-11-10] MEDS: INSULIN ASPART SUPPLEMENTAL SCALE SQ SCH ×2 (07:33→12:26)
[2016-11-10 07:49] LABS: BICARBONATE 35.8 MEQ/L (21.0-32.0); MAGNESIUM 1.8 MG/DL (1.5-2.5); POTASSIUM 3.6 MEQ/L (3.5-5.1)
[2016-11-10 08:10] VITALS: BP 123/76; PULSE 108; RESP 18; TEMP 97.4; O2SAT 96
[2016-11-10] MEDS: predniSONE 20 MG TAB PO SCH (08:13)
[2016-11-10] MEDS: ASPIRIN 325 MG TAB PO SCH (08:13)
[2016-11-10] MEDS: BUDESONIDE-FORMOTEROL 160/4.5 MCG INHALER INH SCH (08:13)
[2016-11-10] MEDS: SODIUM CHLORIDE 0.9% FLUSH 10 ML FLUSH IV FLUSH SCH (08:13)
[2016-11-10] MEDS: ENOXAPARIN SODIUM 40 MG/0.4 ML SYRINGE SQ SCH (08:13)
[2016-11-10] MEDS: SPIRONOLACTONE 25 MG TAB PO SCH (08:13)
[2016-11-10] MEDS: DOCUSATE SODIUM 50 MG/SENNA 8.6 MG TAB PO SCH (08:13)
--- NOTE | 2016-11-10 11:17 | HHI.PR ---
Subjective Remarks Follow up for CHF exacerbation. The patient reports feeling much better today, denies any shortness of breath while at rest, did have some mild dyspnea on exertion when ambulating to the bedside commode. She states her leg swelling has significantly improved. Her O2 sat is stable 96-100% on 2L NC, the patient does wear oxygen at home. She wants to go home today. Again discussed continuing Lasix, monitoring weight, fluid/salt intake; patient verbalized understanding. Objective Vitals Vital Signs Date Time Temp Pulse Resp B/P Pulse Ox O2 Delivery O2 Flow Rate FiO2 11/10/16 08:10 97.4 108 18 123/76 96 11/10/16 07:15 100 11/10/16 03:39 97.6 102 17 116/77 100 11/09/16 23:36 97.9 99 17 120/75 97 11/09/16 19:27 96.9 102 17 126/74 95 11/09/16 16:00 97.6 96 16 130/85 98 11/09/16 11:20 97.5 96 16 132/78 97 I/O 11/09/16 11/09/16 11/09/16 11/10/16 11/10/16 11/10/16 07:00 15:00 23:00 07:00 15:00 23:00 Intake Total 200 ml Output Total 450 ml Balance -450 ml 200 ml Intake Oral 200 ml Output Urine Total 400 ml Stool Total 50 ml # Voids 1 Result Diagram: 11/09/16 0939 11/10/16 0520 Imaging Last Impressions Chest X-Ray 11/08/162001 Signed Impressions: Service Date/Time: Tuesday, November 08, 2016 20:09 - CONCLUSION: Mild bibasilar consolidation/edema. Unchanged mild to moderate cardiomegaly. Edward Montoya MD Objective Remarks GENERAL: Well-nourished, well-developed pleasant elderly female patient in [facility]. SKIN: Warm and dry. No rash. HEENT: Normocephalic. Atraumatic. Pupils equal and round. Mucous membranes pink and moist. NECK: Supple. Trachea midline. CARDIOVASCULAR: Regular rate and rhythm. S1, S2 noted. No murmur appreciated. RESPIRATORY: No accessory muscle use. Clear to auscultation. Breath sounds equal bilaterally. GASTROINTESTINAL: Abdomen soft, non-tender, nondistended. Normoactive bowel sounds x4. MUSCULOSKELETAL: No obvious deformities.Trace pedal/ankle edema bilaterally. NEUROLOGICAL: Awake and alert. No obvious cranial nerve deficits. Motor grossly within normal limits. Normal speech. PSYCHIATRIC: Appropriate mood and affect; insight and judgment normal. Medications and IVs Current Medications Medications (Trade) Dose Ordered Sig/Shamir Route Start Time Stop Time Status Last Admin (Lasix Inj) 40 mg BID@09,18 IV PUSH 11/09/16 09:00 11/09/16 09:55 (Symbicort 160-4.5 Inh) 2 puff Q12HR INH 11/09/16 09:00 11/10/16 08:13 (NS Flush) 2 ml UNSCH PRN IV FLUSH 11/08/16 22:15 (NS Flush) 2 ml BID IV FLUSH 11/09/16 09:00 11/10/16 08:13 (Zofran Inj) 4 mg Q6H PRN IVP 11/08/16 22:15 (Lovenox Inj) 40 mg Q24H SQ 11/09/16 09:00 11/10/16 08:13 (Tylenol) 650 mg Q6H PRN PO 11/08/16 22:15 (Bobbi-Colace) 1 tab BID PO 11/09/16 09:00 11/10/16 08:13 (Milk Of Magnesia Liq) 30 ml Q12H PRN PO 11/08/16 22:15 (Senokot) 17.2 mg Q12H PRN PO 11/08/16 22:15 (Dulcolax Supp) 10 mg DAILY PRN RECTAL 11/08/16 22:15 (Lactulose Liq) 30 ml DAILY PRN PO 11/08/16 22:15 (Aspirin) 325 mg DAILY PO 11/09/16 09:00 11/10/16 08:13 (Aldactone) 25 mg DAILY PO 11/09/16 09:00 11/10/16 08:13 (Pravachol) 40 mg HS PO 11/09/16 21:00 11/09/16 23:22 (Deltasone) 20 mg BID PO 11/09/16 09:00 11/10/16 08:13 (D50w (Vial) Inj) 50 ml UNSCH PRN IV 11/09/16 18:15 (Glucagon Inj) 1 mg UNSCH PRN OTHER 11/09/16 18:15 A/P Problem List: (1) COPD (chronic obstructive pulmonary disease) ICD Code: J44.9 Status: Acute (2) CHF (congestive heart failure) ICD Code: I50.9 Status: Acute (3) Elevated troponin I level ICD Code: R79.89 Status: Acute (4) Hypokalemia ICD Code: E87.6 Status: Acute Assessment and Plan 76-year-old female with a PMH of COPD, O2 Dependent, CHF (Echo 04/25/16 w/ EF 15 -20%), Pacemaker, Hyperlipidemia and Tobacco Abuse who presented secondary to SOB COPD with suspect mild acute exacerbation: Chronic Respiratory Failure on home O2. Possible Acute Exacerbation. Continue short course of oral prednisone. DuoNebs prn. O2 as needed. Acute exacerbation of chronic systolic CHF: Echo 04/25/16 w/ EF 15-20%. BNP 2835, previously 585 on 09/29/16. CXR w/ mild bibasilar consolidation/edema. Continue diuresis w/ Lasix 40mg IV bid. Monitor intake and output. Admits to noncompliance with fluid restrictions, patient educated. Continue home Aldactone. Not on beta alonso, possibly secondary to noncompliance or due to COPD, follow up with cardiology as outpatient. Follow-up BMP and BNP today. Elevated Trop: Trop 0.09 2, trending. No c/o chest pain, elevation likely secondary to CHF. Monitor on telemetry, Continue Statin, ASA. Hypokalemia: Mild. K+ 3.3, s/p replacement, will recheck and replace as needed. K 3.6 today. Thrombocytopenia: Chronic. Stable. Platelets 119, previously 110 on 09/30/16. No active bleeding. Will monitor. DVT Prophylaxis: SCD/Teds. Discharge Planning Likely discharge later today if patient continues to improve. Discharge patient to home Condition on discharge: Improved Heart Healthy Diet as tolerated Ad Sakina activity Rx written: Lasix 40mg bid, KCl 10meq bid, prednisone taper Follow-up with primary care physician and cardiology Problem Qualifiers (1) COPD (chronic obstructive pulmonary disease): Qualified Code: J44.1 - Chronic obstructive pulmonary disease with acute exacerbation (2) CHF (congestive heart failure): Qualified Code: I50.23 - Acute on chronic systolic congestive heart failure Mili Arshad PA-C Nov 10, 2016 11:17 am
[2016-11-10 12:10] VITALS: BP 118/75; PULSE 106; RESP 18; TEMP 98; O2SAT 98
[2016-11-10] MEDS ORDERED: POTA-243 PO (13:08)
[2016-11-10] MEDS ORDERED: FURO40TA PO (13:08)
[2016-11-10] MEDS ORDERED: PRED20 PO (13:08)
[2016-11-10 13:10] LABS: HEMOGLOBIN A1a 1.4 %; HEMOGLOBIN A1b 2.1 %; HEMOGLOBIN Ao 83.5 %; HEMOGLOBIN LA1C 2.3 %; HEMOGLOBIN P3 3.9 %
--- NOTE | 2016-11-10 13:11 | HHI.DCPOC ---
Discharge Care Plan Diagnosis: (1) SOB (shortness of breath) (2) CHF (congestive heart failure) (3) COPD (chronic obstructive pulmonary disease) (4) Hypertension Goals to Promote Your Health * To prevent worsening of your condition and complications * To maintain your health at the optimal level Directions to Meet Your Goals Take your medications as prescribed Follow your dietary instruction Follow activity as directed Keep your appointments as scheduled Take your immunizations and boosters as scheduled If your symptoms worsen call your PCP, if no PCP go to Urgent Care Center or Emergency Room Smoking is Dangerous to Your Health. Avoid second hand smoke Call the 24-hour hour crisis hotline for domestic abuse at Mili Arshad PA-C Nov 10, 2016 13:10
== END 2016-11-10 15:35 | disposition home or self-care (01) ==
LOC: NEPC 17:55 → NEDA 22:00 → NEPHCDU 11-09 01:06
PROVIDERS: ADMIT Hospitalist; ATTEND Hospitalist
DX: J44.1 Chronic obstructive pulmonary disease with (acute) exacerbation (principal); J96.20 Acute and chronic respiratory failure, unspecified whether with hypoxia or hypercapnia; I11.0 Hypertensive heart disease with heart failure; I50.23 Acute on chronic systolic (congestive) heart failure; R74.8 Abnormal levels of other serum enzymes; E87.6 Hypokalemia; D69.6 Thrombocytopenia, unspecified; M79.89 Other specified soft tissue disorders; R94.31 Abnormal electrocardiogram [ECG] [EKG]; E78.00 Pure hypercholesterolemia, unspecified; E11.9 Type 2 diabetes mellitus without complications; J45.909 Unspecified asthma, uncomplicated; F41.9 Anxiety disorder, unspecified; F17.200 Nicotine dependence, unspecified, uncomplicated; Z99.81 Dependence on supplemental oxygen; Z91.19 Patient's noncompliance with other medical treatment and regimen; Z86.73 Personal history of transient ischemic attack (TIA), and cerebral infarction without residual deficits; Z79.01 Long term (current) use of anticoagulants; Z95.0 Presence of cardiac pacemaker
CPT/HCPCS: 71010; 80048; 80053; 81001; 82550; 82552; 82570; 82948; 83036; 83735; 83880; 84300; 84484; 85025; 85610; 85730; 93005; 94640; 94664; 96374; 99285; G0378; J1650; J1815; J1940; J2920; J2930; J7512

== ENCOUNTER 2016-11-24 23:43 | Emergency (ER) | payer OTHER, MEDICAID ==
[~2016-11-24] VITALS: Ht 154.9 cm; Wt 60.0 kg
[~2016-11-24 23:43] MED LIST changes: -CARV6.25 PO; -NITR100C4 PO; -NYST15T TOPICAL; +POTA-243 PO; +PRED20 PO
[2016-11-24 23:47] VITALS: BP 126/80; PULSE 76; RESP 20; TEMP 97.1; O2SAT 88
--- NOTE | 2016-11-25 00:10 | PD ---
HPI Chief Complaint: Abdominal Pain Time Seen by Provider: 23:52 Travel History International Travel<30 days: No Contact w/Intl Traveler<30days: No Traveled to known affect area: No History of Present Illness HPI The patient is a 76 year old female who presents to the [facility] emergency department with a history of abdominal pain and swelling.She has had nausea and dry heaving. She has had diarrhea since yesterday. She has had diarrhea 3 x. She denies blood in the stool. She denies any recent antibiotic use. She reports that she had fried chicken prior to the onset of the symptoms. She reports that she has had a cholecystectomy. She does have a history of congestive heart failure with a prior ejection fraction of 15-20%, and COPD, chronically O2 dependent on 2 L nasal cannula. The patient has had increasing shortness of breath and did increase her nasal cannula to 3 L. She reports that she was admitted to the hospital earlier in October for congestive heart failure exacerbation. Her diuretic dose was changed 1-2 weeks ago, but she is unsure how the dose was changed. A review of the records shows that the patient was increased from Lasix 20 mg twice a day to Lasix 40 mg twice a day. The patient and her bag of medications has 3 different prescriptions for metoprolol all of the same dose, 2 different bottles of Lasix one and 20 mg the other at 40 mg. The patient reports that she is unsure which bottle she has been taking her medications from. The patient reports that the abdominal pain that she is experiencing is in the midepigastric area and right upper quadrant of the abdomen. The patient is unsure whether she's had any changes in her weight. She reports that her lower extremity edema is better than previously. Otherwise, on review of systems, the patient denies any recent known fevers, cough, congestion, neck pain, chest pain, urinary symptoms, or neurologic symptoms. [facility] Past Medical History Narrative Medical The patient's past medical history is significant for COPD, congestive heart failure with a prior ejection fraction of 15-20% hypokalemia, thrombocytopenia, history of a pacemaker placement, hyperlipidemia, prior history of tobacco abuse , however she reports that she quit smoking 2 months ago. Hx Anticoagulant Therapy: Yes Arthritis: No Asthma: Yes Anxiety: Yes Depression: No Heart Rhythm Problems: Yes Cancer: No Cardiovascular Problems: Yes (PACEMAKER, CHF) High Cholesterol: Yes Chemotherapy: No Chest Pain: Yes Congestive Heart Failure: Yes COPD: Yes Cerebrovascular Accident: Yes Diabetes: Yes (diet controlled ) Patient Takes Glucophage: No Diminished Hearing: No Endocrine: No Gastrointestinal Disorders: Yes (DIVERTICULOSIS) GERD: No Glaucoma: No Genitourinary: No Headaches: No Hepatitis: No Hiatal Hernia: No Hypertension: Yes Immune Disorder: No Kidney Stones: No Musculoskeletal: Yes Neurologic: Yes Psychiatric: Yes Reproductive: No Respiratory: Yes (COPD) Immunizations Current: Yes Migraines: No Myocardial Infarction: No Radiation Therapy: No Renal Failure: No Seizures: No Sleep Apnea: No Thyroid Disease: No Ulcer: No Tetanus Vaccination: > 5 Years Influenza Vaccination: Yes Menopausal: Yes : 8 Para: 8 Miscarriage: 0 : 0 Past Surgical History Narrative Surgical The patient's past surgical history is significant for partial colectomy, appendectomy, cholecystectomy, hysterectomy, pacemaker placement. Abdominal Surgery: Yes (PARTIAL COLECTOMY FROM DIVERTICULITIS, appendectomy) AICD: No Appendectomy: Yes Arteriovenous Shunt: No Cardiac Surgery: No Cholecystectomy: Yes Ear Surgery: No Endocrine Surgery: No Eye Surgery: No Genitourinary Surgery: No Gynecologic Surgery: Yes (HYSTERECTOMY - PT UNSURE IF THEY TOOK HER OVERIES) Hysterectomy: Yes Insulin Pump: No Joint Replacement: No Oral Surgery: Yes (ALL TEETH REMOVED) Pacemaker: Yes (MEDTRONIC AF MRI IMPLANTED) Thoracic Surgery: No Other Surgery: Yes (hysterectomy, appendenctomy) Social History Alcohol Use: No (HX OF ) Tobacco Use: No (QUIT 2 MONTHS AGO) Substance Use: No Allergies-Medications (Allergen,Severity, Reaction): Coded Allergies: Morphine (Verified Allergy, Intermediate, Itching, 11/25/16) Reported Meds & Prescriptions Reported Meds & Active Scripts Active Famotidine 20 Mg Tab 20 Mg PO BID Prednisone 20 Mg Tab 20 Mg PO BID Take 20mg twice a day x3days, Then take 20mg once a day x3days, then stop. Klor-Con 10 (Potassium Chloride) 10 Meq Tab 10 Meq PO BID Furosemide 40 Mg Tab 40 Mg PO BID Spironolactone 25 Mg Tab 25 Mg PO DAILY Reported Symbicort Inh (Budesonide/Formoterol Fumarate) 160-4.5 Mcg/Act Aero 1 Puff INH Q12HR Metoprolol Succinate ER 24 HR (Metoprolol Succinate) 25 Mg Tab 25 Mg PO DAILY Review of Systems Except as stated in HPI: all other systems reviewed are Neg General / Constitutional: No: Fever Eyes: No: Visual changes HENT: No: Headaches Cardiovascular: Positive: Dyspnea on exertion, Edema, No: Chest Pain or Discomfort Respiratory: Positive: Shortness of Breath Gastrointestinal: Positive: Nausea, Vomiting (dry heaving), Diarrhea, Abdominal Pain, Changes in Bowel Habits, Indigestion, No: Hematemesis, Hematochezia, Constipation, Loss of Appetite Genitourinary: No: Dysuria Musculoskeletal: No: Pain Skin: No Rash Neurologic: No: Weakness, Focal Abnormalities, Change in Mentation, Sensory Disturbance Psychiatric: No: Depression Endocrine: No: Polydipsia Hematologic/Lymphatic: No: Easy Bruising Physical Exam Narrative General: The patient is a well-developed well-nourished female in no acute distress. O2 saturation on room air is 88%. She was placed back on her 3 L nasal cannula O2 and is saturating 96-97%. Head and Neck exam: Head is normocephalic atraumatic. Eyes: EOMI, pupils are equal round and reactive to light. Nose: Midline septum with pink mucous membranes Mouth: Dentition unremarkable. Moist mucus membranes. Posterior oropharynx is not erythematous. No tonsillar hypertrophy. Uvula midline. Airway patent. Neck: No palpable lymphadenopathy. No nuchal rigidity. No thyromegaly. Cardiovascular: Regular rate and rhythm without murmurs, gallops, or rubs. No pulse deficit to the extremities and simultaneous auscultation and palpation of her radial artery. Lungs: Clear to auscultation bilaterally. No wheezes, rhonchi, or rales. Abdomen: Soft, with reported tenderness on palpation of the midepigastric and right upper quadrant of the abdomen, no other tenderness on palpation of the other quadrants of the abdomen. No guarding, rebound, or rigidity. No tenderness on palpation of McBurney's point. Normal bowel sounds are audible. Negative [place] sign. Extremities: No clubbing or cyanosis. The patient has 1+ nonpitting edema bilateral lower extremities. 2+ pulses in all 4 extremities. No calf tenderness on palpation. Back: No spinous process tenderness to palpation. Left-sided CVA tenderness is noted on palpation. Neurologic Exam: Grossly nonfocal. Skin Exam: No rash noted. Intact skin that is warm and dry. Data Data Last Documented VS Vital Signs Date Time Temp Pulse Resp B/P Pulse Ox O2 Delivery O2 Flow Rate FiO2 11/25/16 03:30 87 16 122/77 98 Nasal Cannula 3 11/24/16 23:47 97.1 Orders Electrocardiogram (11/25/16 00:03) Complete Blood Count With Diff (11/25/16 00:03) Comprehensive Metabolic Panel (11/25/16 00:03) Creatine Kinase (Cpk) (11/25/16 00:03) Ckmb (Isoenzyme) Profile (11/25/16 00:03) Troponin I (11/25/16 00:03) B-Type Natriuretic Peptide (11/25/16 00:03) Prothrombin Time / Inr (Pt) (11/25/16 00:03) Act Partial Throm Time (Ptt) (11/25/16 00:03) C-Reactive Protein (Crp) (11/25/16 00:03) Lipase (11/25/16 00:03) Urinalysis - C+S If Indicated (11/25/16 00:03) Magnesium (Mg) (11/25/16 00:03) Chest, Single Ap (11/25/16 00:03) Ct Abd/Pel W Iv Contrast(Rout) (11/25/16 00:03) Iv Access Insert/Monitor (11/25/16 00:03) Ecg Monitoring (11/25/16 00:03) Oxygen Administration (11/25/16 00:03) Oximetry (11/25/16 00:03) Ondansetron Inj (Zofran Inj) (11/25/16 00:15) Iohexol 350 Inj (Omnipaque 350 Inj) (11/25/16 01:35) Furosemide Inj (Lasix Inj) (11/25/16 02:15) Troponin I (11/25/16 03:00) Famotidine Inj (Pepcid Inj) (11/25/16 03:00) Labs Laboratory Tests Test 11/25/16 11/25/16 11/25/16 00:00 03:00 03:45 White Blood Count 4.1 TH/MM3 Red Blood Count 3.94 MIL/MM3 Hemoglobin 12.2 GM/DL Hematocrit 37.1 % Mean Corpuscular Volume 94.2 FL Mean Corpuscular Hemoglobin 31.0 PG Mean Corpuscular Hemoglobin 32.9 % Concent Red Cell Distribution Width 14.9 % Platelet Count 120 TH/MM3 Mean Platelet Volume 10.4 FL Neutrophils (%) (Auto) 68.4 % Lymphocytes (%) (Auto) 16.6 % Monocytes (%) (Auto) 14.0 % Eosinophils (%) (Auto) 0.2 % Basophils (%) (Auto) 0.8 % Neutrophils # (Auto) 2.8 TH/MM3 Lymphocytes # (Auto) 0.7 TH/MM3 Monocytes # (Auto) 0.6 TH/MM3 Eosinophils # (Auto) 0.0 TH/MM3 Basophils # (Auto) 0.0 TH/MM3 CBC Comment DIFF FINAL Differential Comment Prothrombin Time 13.2 SEC Prothromb Time International 1.2 RATIO Ratio Activated Partial 24.1 SEC Thromboplast Time Sodium Level 136 MEQ/L Potassium Level 4.3 MEQ/L Chloride Level 95 MEQ/L Carbon Dioxide Level 35.1 MEQ/L Anion Gap 6 MEQ/L Blood Urea Nitrogen 9 MG/DL Creatinine 0.99 MG/DL Estimat Glomerular Filtration 66 ML/MIN Rate Random Glucose 113 MG/DL Calcium Level 9.2 MG/DL Magnesium Level 2.1 MG/DL Total Bilirubin 1.0 MG/DL Aspartate Amino Transf 36 U/L (AST/SGOT) Alanine Aminotransferase 25 U/L (ALT/SGPT) Alkaline Phosphatase 116 U/L Total Creatine Kinase 90 U/L Troponin I 0.08 NG/ML 0.08 NG/ML C-Reactive Protein 0.77 MG/DL B-Type Natriuretic Peptide 4258 PG/ML Total Protein 7.8 GM/DL Albumin 3.9 GM/DL Lipase 222 U/L Urine Color LIGHT-YELLOW Urine Turbidity CLEAR Urine pH 5.5 Urine Specific [place] 1.025 Urine Protein 30 mg/dL Urine Glucose (UA) NEG mg/dL Urine Ketones NEG mg/dL Urine Occult Blood TRACE Urine Nitrite NEG Urine Bilirubin NEG Urine Urobilinogen LESS THAN 2.0 MG/DL Urine Leukocyte Esterase NEG Urine RBC 1 /hpf Urine WBC 1 /hpf Urine Squamous Epithelial <1 /hpf Cells Urine Hyaline Casts 5 /lpf Urine Mucus FEW /lpf Microscopic Urinalysis Comment CULT NOT INDICATED MDM Medical Decision Making Medical Screen Exam Complete: Yes Emergency Medical Condition: Yes Medical Record Reviewed: Yes Interpretation(s) Last Impressions Chest X-Ray 11/25/16 0003 Signed Impressions: Service Date/Time: Friday, November 25, 2016 00:06 - CONCLUSION: Moderate cardiomegaly with no pulmonary edema. Poncho Wolff MD Abdomen/Pelvis CT 11/25/16 0003 Signed Impressions: Service Date/Time: Friday, November 25, 2016 01:32 - CONCLUSION: 1. Distal abdominal aortic aneurysm. 2. Moderate cardiomega 3. Small amount of ascitic fluid. Poncho Wolff MD Differential Diagnosis Congestive heart failure exacerbation, versus pneumonia, versus acute coronary syndrome, versus biliary obstruction, versus peptic ulcer disease, versus gastroenteritis, versus pancreatitis Narrative Course During the course of the patients emergency department visit, the patients history, examination, and differential diagnosis were reviewed with the patient. The patient had IV access obtained and blood work sent for analysis. The patient was placed on a monitoring analyst with oximetry and blood pressure monitoring. An ECG was done on arrival. The patient's ECG reveals a sinus rhythm with a short HI interval, heart rate 84, QRS duration is 87 ms, QTC 438 ms, no acute ST segment elevation or depression. T waves are inverted in V5, V6 , 1, aVL. The patient was initially provided Lasix 20 mg IV, famotidine 20 mg IV, and Zofran 4 mg IV. While having a lengthy discussion with the patient and the patient's daughter at the bedside they realized that the patient had multiple medications that were the same and she is unsure whether she has been taking all of these medications together. An explanation, the patient's medication back the patient is noted to have 3 prescriptions for metoprolol, same dose, at twice a day, and 2 separate prescriptions for Lasix 1 for 20 mg, the other for 40 mg twice a day, and to prescriptions for simvastatin. We did clarify that the patient according to the record should be on Lasix 40 mg twice a day after her discharge from the hospital for recent admission. The patient was also instructed to take only one of the metoprolol prescriptions and one of the simvastatin prescriptions, however the patient reports that this was completely discontinued by her primary care physician, therefore if this is the case she is instructed to discontinue both prescriptions. The patients laboratory studies were reviewed and remarkable for a white count of 4.1, hemoglobin 12.2, platelets 120 with 14 monocytes, CMP is remarkable for chloride of 95, CO2 35.1, glucose 113, CPK 98, troponin I 0.08 which is compared to prior levels done at this facility, last level done prior to discharge was 0.07, 0.09 the day prior. C-reactive protein is 0.77, BNP is 4258 which is increased compared to previously at 3196. Radiology studies were reviewed and remarkable for a chest x-ray that shows moderate cardiomegaly with no pulmonary edema. CT scan of the abdomen and pelvis shows a distal abdominal aortic aneurysm that measures at 3.7 x 4 cm. Moderate cardiomegaly, small amount of ascitic fluid, no other acute abnormality. The patient had a repeat troponin I measured which was stable at 0.08. The patient began to diurese. Urinalysis shows 30 protein trace occult blood, otherwise unremarkable. The patient's results were discussed with the patient and the patient's daughter. The patient reports feeling improved. The patient will be discharged home with a prescription for famotidine. The patient is instructed regarding the importance of close follow-up with her primary care physician N research support specialist. She is instructed to call both for an appointment for follow- up this week. From reviewing the electronic medical record, the patient has a history of cardiac catheterization with negative coronary arteries in 2005. The patient is resting comfortably and feels better, is alert and in no distress. The patients results and examination findings were discussed with the patient. The repeat examination is unremarkable and benign. The history, exam, diagnostic testing, and current condition do not suggest any significant pathology to warrant further testing, continued ED treatment, admission, or surgical evaluation at this point. The vital signs have been stable. The patient does not have uncontrollable pain, intractable vomiting, or other significant symptoms. The patient's condition is stable and appropriate for discharge. The patient will pursue further outpatient evaluation with a primary care physician or other designated or consulting physician as indicated in the discharge instructions. The patient expressed understanding and was agreeable with this plan. Diagnosis Primary Impression: CHF (congestive heart failure) Qualified Code: I50.9 - Acute congestive heart failure, unspecified congestive heart failure type Additional Impressions: Abdominal pain Qualified Code: R10.13 - Epigastric pain Abdominal aortic aneurysm Qualified Code: I71.4 - Abdominal aortic aneurysm (AAA) without rupture Referrals: Speech Instructor 1 day Primary Care Physician 1 day Patient Instructions: Abdominal Pain (ED), General Instructions Med/Other Pt SpecificInfo: Prescription(s) given Scripts Famotidine 20 Mg Tab20 Mg PO BID #14 TAB Ref 0 Prov:Emilee Parada MD 11/25/16 Disposition: 01 DISCHARGE HOME Condition: Stable Emilee Parada MD Nov 25, 2016 00:10
[2016-11-25] MEDS ORDERED: ONDANSETRON HCL 4 MG/2 ML VIAL IV PUSH ONE (00:15)
--- NOTE | 2016-11-25 00:30 | RADRPT ---
EXAM DATE/TIME: 11/25/2016 00:06 [facility] COMPARISON: CHEST SINGLE AP, November 08, 2016, 20:09. INDICATIONS : Chest pain. MEDICAL HISTORY : None. SURGICAL HISTORY : Pacemaker. ENCOUNTER: Initial ACUITY: 1 day PAIN SCORE: 0/10 LOCATION: Bilateral chest FINDINGS: A single view of the chest demonstrates the lungs to be symmetrically aerated without evidence of mas s, infiltrate or effusion. The heart size remains moderately enlarged. There is no perihilar edema. The left subclavian transvenous pacer remains in place. Osseous structures are intact. CONCLUSION: Moderate cardiomegaly with no pulmonary edema. Poncho Wolff MD on November 25, 2016 at 0:28 Board Certified Radiologist. This report was verified electronically.
[2016-11-25 00:40] LABS: AUTOMATED NEUTROPHIL # 2.8 TH/MM3 (1.8-7.7); BASOPHIL % 0.8 % (0.0-2.0); EOSINOPHIL % 0.2 % (0.0-4.0); HEMATOCRIT 37.1 % (35.0-46.0); HEMO FLAGS DIFF FINAL; LYMPH % 16.6 % (9.0-44.0); LYMPHOCYTE # 0.7 TH/MM3 (1.0-4.8); MEAN CELL VOLUME 94.2 FL (80.0-100.0); MEAN CORPUSCULAR HGB CONC 32.9 % (32.0-36.0); NEUT % 68.4 % (16.0-70.0); PLATELET COUNT 120 TH/MM3 (150-450); RED BLOOD COUNT 3.94 MIL/MM3 (4.00-5.30); RED CELL DISTRIBUTION WIDTH 14.9 % (11.6-17.2); WHITE BLOOD COUNT 4.1 TH/MM3 (4.0-11.0)
[2016-11-25 00:46] LABS: APTT (PATIENT) 24.1 SEC (24.3-30.1); INTERNATIONAL NORMALIZED RATIO 1.2 RATIO; PROTHROMBIN TIME - PATIENT 13.2 SEC (9.8-11.6)
[2016-11-25 00:48] LABS: ALT (GPT) 25 U/L (10-53); ANION GAP 6 MEQ/L (5-15); AST (GOT) 36 U/L (15-37); BICARBONATE 35.1 MEQ/L (21.0-32.0); BLOOD UREA NITROGEN 9 MG/DL (7-18); CHLORIDE 95 MEQ/L (98-107); GLOMERULAR FILTRATION RATE 66 ML/MIN (>89); MAGNESIUM 2.1 MG/DL (1.5-2.5); POTASSIUM 4.3 MEQ/L (3.5-5.1); SODIUM (NA) 136 MEQ/L (136-145)
[2016-11-25 00:51] LABS: ALKALINE PHOSPHATASE 116 U/L (45-117)
[2016-11-25] MEDS ORDERED: SYMB160A INH (01:05)
[2016-11-25] MEDS ORDERED: METO25TA6 PO (01:05)
[2016-11-25 01:11] LABS: CREATINE KINASE 90 U/L (26-192)
[2016-11-25 01:30] VITALS: BP 98/67; PULSE 85; RESP 16; O2SAT 96
[2016-11-25] MEDS ORDERED: IOHEXOL 350 MG/ML 10 ML VIAL (for RAD DIAG) IV ONE (01:35)
[2016-11-25] MEDS ORDERED: FUROSEMIDE 40 MG/4 ML VIAL IV PUSH ONE (02:15)
--- NOTE | 2016-11-25 02:22 | RADRPT ---
EXAM DATE/TIME: 11/25/2016 01:32 [facility] COMPARISON: No previous studies available for comparison. INDICATIONS : Right upper quadrant pain. IV CONTRAST: 95 cc Omnipaque 350 (iohexol) IV ORAL CONTRAST: No oral contrast ingested. RADIATION DOSE: 7.39 CTDIvol (mGy) MEDICAL HISTORY : Chronic obstructive pulmonary disease. Congestive heart failure. Hypertension. SURGICAL HISTORY : Pacemaker. Colon resection. Hysterectomy. Appendectomy ENCOUNTER: Initial ACUITY: 1 day PAIN SCALE: 6/10 LOCATION: Right upper quadrant abdomen TECHNIQUE: Volumetric scanning of the abdomen and pelvis was performed. Using automated exposure control and adjustment of the mA and/or kV according to patient size, radiation dose was kept as low as reasonably achievable to obtain optimal diagnostic quality images. DICOM format image data is av ailable electronically for review and comparison. FINDINGS: LOWER LUNGS: The visualized lower lungs are clear. The heart size is moderately enlarged. There i s a transvenous pacer in place. LIVER: Homogeneous density without lesion. There is no dilation of the biliary tree. No calcifi ed gallstones. SPLEEN: Normal size without lesion. PANCREAS: Within normal limits. KIDNEYS: Normal in size and shape. There is no mass, stone or hydronephrosis. ADRENAL GLANDS: Within normal limits. VASCULAR: There is a distal abdominal aortic aneurysm measuring up to 3.7 x 4 cm in greatest AP a nd transverse diameter. Peripheral plaque is present. There is no evidence of acute leakage. BOWEL/MESENTERY: The stomach, small bowel, and colon demonstrate no acute abnormality. There is n o free air. There is a small amount of ascitic fluid. ABDOMINAL WALL: Within normal limits. RETROPERITONEUM: There is no lymphadenopathy. BLADDER: No wall thickening or mass. REPRODUCTIVE: Within normal limits. INGUINAL: There is no lymphadenopathy or hernia. MUSCULOSKELETAL: Within normal limits for patient age. CONCLUSION: 1. Distal abdominal aortic aneurysm. 2. Moderate cardiomega 3. Small amount of ascitic fluid. Poncho Wolff MD on November 25, 2016 at 2:15 Board Certified Radiologist. This report was verified electronically.
[2016-11-25 02:30] VITALS: BP 98/58; PULSE 87; RESP 18; O2SAT 96
[2016-11-25 03:00] VITALS: BP 98/57; PULSE 87; RESP 16; O2SAT 95
[2016-11-25] MEDS ORDERED: FAMOTIDINE INJ 20 MG in SODIUM CHLORIDE 0.9% INJ 98 ML IV SCH (03:00)
[2016-11-25 03:30] VITALS: BP 122/77; PULSE 87; RESP 16; O2SAT 98
[2016-11-25 04:17] LABS: BLOOD, URINE TRACE (NEG); COMMENT (UR) CULT NOT INDICATED; CULTURE IF INDICATED CULT NOT INDICATED; GLUCOSE,URINE NEG (NEG); HYALINE CAST, URINE 5 /lpf (RARE); KETONE, URINE NEG (NEG); MUCUS URINE FEW /lpf (OCC); NITRITE,URINE NEG (NEG); PH, URINE 5.5 (5.0-8.5); SQUAMOUS EPITHELIAL CELL URINE <1 /hpf (0-5); URINE COLOR LIGHT-YELLOW (YELLW/STRAW)
[2016-11-25] MEDS ORDERED: FAMO20TA2 PO (04:27)
[2016-11-25 06:11] VITALS: BP 119/67
--- NOTE | 2016-11-25 14:12 | EKG ---
Date Performed: 11/25/2016 Time Performed: 00:02:27 PTAGE: 76 years EKG: Sinus rhythm WITH SHORT [place] INTERVAL MARKED LEFT AXIS DEVIATION LEFT VENTRICULAR HYPERTROPHY AND ST-T CHANGE POSSI BLE ANTEROSEPTAL MYOCARDIAL INFARCTION ABNORMAL ECG Compared to prior tracing no significant change PREVIOUS TRACING : 11/08/2016 19.56 DOCTOR: Evin Snyder Interpretating Date/Time 11/25/2016 14:10:37
== END 2016-11-25 06:12 | disposition home or self-care (01) ==
LOC: NEPE 23:43
DX: I50.9 Heart failure, unspecified (principal); R10.13 Epigastric pain; I71.4 Abdominal aortic aneurysm, without rupture; J44.9 Chronic obstructive pulmonary disease, unspecified; Z87.891 Personal history of nicotine dependence
CPT/HCPCS: 71010; 74177; 80053; 81001; 82550; 83690; 83735; 83880; 84484; 85025; 85610; 85730; 86140; 93005; 96374; 96375; 99285; J1940; Q9967

== ENCOUNTER 2016-12-19 11:14 | Inpatient (IN) | payer OTHER, MEDICARE ==
[2016-12-19] VITALS (9 sets, daily range): BP systolic 92–151; BP diastolic 58–86; PULSE 88–102; RESP 18–20; TEMP 97–99.2; O2SAT 96–99
[~2016-12-19] VITALS: Ht 157.5 cm; Wt 62.8 kg
[~2016-12-19 11:14] MED LIST changes: -ALBU0.08 NEB; -ASPI325T PO; +FAMO20TA2 PO; -FLUT1INH INH; +METO25TA6 PO; +SYMB160A INH; -VENTAER INH; -ZOCO20TA PO
--- NOTE | 2016-12-19 11:57 | PD ---
HPI Chief Complaint: Respiratory Symptoms Time Seen by Provider: 11:55 Travel History International Travel<30 days: No Contact w/Intl Traveler<30days: No Traveled to known affect area: No History of Present Illness HPI 76-year-old female with history of remote CVA, CAD, CHF, A. fib, hypertension, COPD, presents to emergency department for evaluation of worsening shortness of breath over the last 4 days. Patient states that she has had to increase her oxygen via nasal cannula at home. She has had a cough productive of a white sputum. Her lower extremity have had worsening edema. She states she has a left shoulder pain but denies significant chest pain. States that she feels chest tightness and difficulty breathing. He has been with mild nausea. Has felt chilled, no definite fever. No other symptoms to report at this time. PFSH Past Medical History Hx Anticoagulant Therapy: Yes Arthritis: No Asthma: Yes Anxiety: Yes Depression: No Heart Rhythm Problems: Yes Cancer: No Cardiovascular Problems: Yes High Cholesterol: Yes Chemotherapy: No Chest Pain: Yes Congestive Heart Failure: Yes COPD: Yes Cerebrovascular Accident: Yes Diabetes: Yes (diet controlled ) Patient Takes Glucophage: No Diminished Hearing: No Endocrine: No Gastrointestinal Disorders: Yes (DIVERTICULOSIS) GERD: No Glaucoma: No Genitourinary: No Headaches: No Hepatitis: No Hiatal Hernia: No Hypertension: Yes Immune Disorder: No Kidney Stones: No Musculoskeletal: Yes Neurologic: Yes Psychiatric: Yes Reproductive: No Respiratory: Yes Immunizations Current: Yes Migraines: No Myocardial Infarction: No Radiation Therapy: No Renal Failure: No Seizures: No Sleep Apnea: No Thyroid Disease: No Ulcer: No Menopausal: Yes : 8 Para: 8 Miscarriage: 0 : 0 Past Surgical History Abdominal Surgery: Yes (PARTIAL COLECTOMY FROM DIVERTICULITIS, appendectomy) AICD: No Appendectomy: Yes Arteriovenous Shunt: No Cardiac Surgery: No Cholecystectomy: Yes Ear Surgery: No Endocrine Surgery: No Eye Surgery: No Genitourinary Surgery: No Gynecologic Surgery: Yes (HYSTERECTOMY - PT UNSURE IF THEY TOOK HER OVERIES) Hysterectomy: Yes Insulin Pump: No Joint Replacement: No Oral Surgery: Yes (ALL TEETH REMOVED) Pacemaker: Yes (MEDTRONIC AF MRI IMPLANTED) Thoracic Surgery: No Other Surgery: Yes (hysterectomy, appendenctomy) Social History Alcohol Use: No (HX OF ) Tobacco Use: No (QUIT 2 MONTHS AGO) Substance Use: No Allergies-Medications (Allergen,Severity, Reaction): Coded Allergies: morphine (Unverified Allergy, Intermediate, Itching, 12/10/16) Reported Meds & Prescriptions Reported Meds & Active Scripts Active Klor-Con 10 (Potassium Chloride) 10 Meq Tab 10 Meq PO BID Furosemide 40 Mg Tab 40 Mg PO BID Spironolactone 25 Mg Tab 25 Mg PO DAILY Reported Albuterol Neb (Albuterol Sulfate) 2.5 Mg/3 Ml Neb 2.5 Mg NEB QID Breo Ellipta Inh (Fluticasone/Vilanterol) 100-25 Mcg/Act Inh 1 Puff INH DAILY Use daily at the same time. Lisinopril 20 Mg Tab 20 Mg PO BID Zocor (Simvastatin) 40 Mg Tab 40 Mg PO HS Coreg (Carvedilol) 6.25 Mg Tab 6.25 Mg PO BID Metoprolol Succinate ER 24 HR (Metoprolol Succinate) 25 Mg Tab 25 Mg PO DAILY Review of Systems ROS Limitations: Poor Historian Except as stated in HPI: all other systems reviewed are Neg Physical Exam Narrative GENERAL: Well-nourished elderly appearing female patient, sitting up in bed, in mild distress, SKIN: Focused skin assessment warm/dry. HEAD: Atraumatic. Normocephalic. EYES: Pupils equal and round. No scleral icterus. No injection or drainage. ENT: No nasal bleeding or discharge. Mucous membranes pink and moist. NECK: Trachea midline. No JVD. CARDIOVASCULAR: Tachycardic rate and rhythm. No murmur appreciated. RESPIRATORY: Tachypneic No accessory muscle use. Diminished, coarse to auscultation. Breath sounds equal bilaterally. GASTROINTESTINAL: Abdomen soft, non-tender, nondistended. Hepatic and splenic margins not palpable. MUSCULOSKELETAL: No obvious deformities. No clubbing. No cyanosis. 2+ lower lateral lower extremity edema. NEUROLOGICAL: Awake and alert. No obvious cranial nerve deficits. Motor grossly within normal limits. Normal speech. Data Data Last Documented VS Vital Signs Date Time Temp Pulse Resp B/P (MAP) Pulse Ox O2 Delivery O2 Flow Rate FiO2 12/19/16 13:32 95 20 114/76 (89) 96 Nasal Cannula 4.00 12/19/16 12:23 98.1 Orders Orders Complete Blood Count With Diff (12/19/16 12:11) Basic Metabolic Panel (Bmp) (12/19/16 12:11) B-Type Natriuretic Peptide (12/19/16 12:11) Act Partial Throm Time (Ptt) (12/19/16 12:11) Prothrombin Time / Inr (Pt) (12/19/16 12:11) Magnesium (Mg) (12/19/16 12:11) Ckmb (Isoenzyme) Profile (12/19/16 12:11) Troponin I (12/19/16 12:11) Urinalysis - C+S If Indicated (12/19/16 12:11) Iv Access Insert/Monitor (12/19/16 12:11) Electrocardiogram (12/19/16 12:11) Ecg Monitoring (12/19/16 12:11) Oximetry (12/19/16 12:11) Oxygen Administration (12/19/16 12:11) Chest, Single Ap (12/19/16 12:11) Sodium Chloride 0.9% Flush (Ns Flush) (12/19/16 12:15) Albuterol-Ipratropium Neb (Duoneb Neb) (12/19/16 12:15) Us Leg Venous Doppler Bilat (12/19/16 ) Furosemide Inj (Lasix Inj) (12/19/16 13:30) Diet Heart Healthy (12/19/16 Dinner) Labs Laboratory Tests Test 12/19/16 12:10 12/19/16 14:18 White Blood Count 4.9 TH/MM3 Red Blood Count 4.26 MIL/MM3 Hemoglobin 12.7 GM/DL Hematocrit 39.8 % Mean Corpuscular Volume 93.5 FL Mean Corpuscular Hemoglobin 29.9 PG Mean Corpuscular Hemoglobin Concent 31.9 % Red Cell Distribution Width 15.8 % Platelet Count 205 TH/MM3 Mean Platelet Volume 10.0 FL Neutrophils (%) (Auto) 65.1 % Lymphocytes (%) (Auto) 16.9 % Monocytes (%) (Auto) 14.2 % Eosinophils (%) (Auto) 2.7 % Basophils (%) (Auto) 1.1 % Neutrophils # (Auto) 3.2 TH/MM3 Lymphocytes # (Auto) 0.8 TH/MM3 Monocytes # (Auto) 0.7 TH/MM3 Eosinophils # (Auto) 0.1 TH/MM3 Basophils # (Auto) 0.1 TH/MM3 CBC Comment DIFF FINAL Differential Comment Prothrombin Time 12.0 SEC Prothromb Time International Ratio 1.1 RATIO Activated Partial Thromboplast Time 25.0 SEC Blood Urea Nitrogen 12 MG/DL Creatinine 0.93 MG/DL Random Glucose 95 MG/DL Calcium Level 8.8 MG/DL Magnesium Level 2.3 MG/DL Sodium Level 140 MEQ/L Potassium Level 4.7 MEQ/L Chloride Level 100 MEQ/L Carbon Dioxide Level 35.6 MEQ/L Anion Gap 4 MEQ/L Estimat Glomerular Filtration Rate 71 ML/MIN Total Creatine Kinase 97 U/L Troponin I 0.12 NG/ML B-Type Natriuretic Peptide 1040 PG/ML Urine Color YELLOW Urine Turbidity CLEAR Urine pH 8.0 Urine Specific [place] 1.009 Urine Protein NEG mg/dL Urine Glucose (UA) NEG mg/dL Urine Ketones NEG mg/dL Urine Occult Blood TRACE Urine Nitrite NEG Urine Bilirubin NEG Urine Urobilinogen LESS THAN 2.0 MG/DL Urine Leukocyte Esterase NEG Urine RBC 2 /hpf Urine WBC 1 /hpf Urine Squamous Epithelial Cells <1 /hpf Urine Bacteria RARE /hpf Microscopic Urinalysis Comment CULT NOT INDICATED MDM Medical Decision Making Medical Screen Exam Complete: Yes Emergency Medical Condition: Yes Medical Record Reviewed: Yes Differential Diagnosis CHF exacerbation versus pneumonia versus influenza versus ACS Narrative Course 76 year-old female presents most for evaluation of worsening shortness of breath. Patient has history of CHF. Her breath sounds are coarse and diminished. Bilateral lower extremity edema is noted. Patient is on 4 L nasal cannula here with oxygen saturation 82%. DuoNeb treatment is administered. Last Impressions Chest X-Ray 12/19/16 1211 Signed Impressions: Service Date/Time: November 12:15 - CONCLUSION: 1. Cardiomegaly without evidence for failure. 2. Linear right lower lung zone opacities consistent with atelectasis/scarring. Blayne Floyd MD Lower Extremity Ultrasound 12/19/16 0000 Signed Impressions: Service Date/Time: November 12:18 - CONCLUSION: 1. No DVT identified. Navid Rai MD Laboratory Tests Test 12/19/16 12:10 12/19/16 14:18 White Blood Count 4.9 TH/MM3 Red Blood Count 4.26 MIL/MM3 Hemoglobin 12.7 GM/DL Hematocrit 39.8 % Mean Corpuscular Volume 93.5 FL Mean Corpuscular Hemoglobin 29.9 PG Mean Corpuscular Hemoglobin Concent 31.9 % Red Cell Distribution Width 15.8 % Platelet Count 205 TH/MM3 Mean Platelet Volume 10.0 FL Neutrophils (%) (Auto) 65.1 % Lymphocytes (%) (Auto) 16.9 % Monocytes (%) (Auto) 14.2 % Eosinophils (%) (Auto) 2.7 % Basophils (%) (Auto) 1.1 % Neutrophils # (Auto) 3.2 TH/MM3 Lymphocytes # (Auto) 0.8 TH/MM3 Monocytes # (Auto) 0.7 TH/MM3 Eosinophils # (Auto) 0.1 TH/MM3 Basophils # (Auto) 0.1 TH/MM3 CBC Comment DIFF FINAL Differential Comment Prothrombin Time 12.0 SEC Prothromb Time International Ratio 1.1 RATIO Activated Partial Thromboplast Time 25.0 SEC Blood Urea Nitrogen 12 MG/DL Creatinine 0.93 MG/DL Random Glucose 95 MG/DL Calcium Level 8.8 MG/DL Magnesium Level 2.3 MG/DL Sodium Level 140 MEQ/L Potassium Level 4.7 MEQ/L Chloride Level 100 MEQ/L Carbon Dioxide Level 35.6 MEQ/L Anion Gap 4 MEQ/L Estimat Glomerular Filtration Rate 71 ML/MIN Total Creatine Kinase 97 U/L Troponin I 0.12 NG/ML B-Type Natriuretic Peptide 1040 PG/ML Urine Color YELLOW Urine Turbidity CLEAR Urine pH 8.0 Urine Specific [place] 1.009 Urine Protein NEG mg/dL Urine Glucose (UA) NEG mg/dL Urine Ketones NEG mg/dL Urine Occult Blood TRACE Urine Nitrite NEG Urine Bilirubin NEG Urine Urobilinogen LESS THAN 2.0 MG/DL Urine Leukocyte Esterase NEG Urine RBC 2 /hpf Urine WBC 1 /hpf Urine Squamous Epithelial Cells <1 /hpf Urine Bacteria RARE /hpf Microscopic Urinalysis Comment CULT NOT INDICATED Patient is given IV Lasix. Upon reassessment, she does report some improvement in her symptoms. Heart rate remains elevated. BNP is 1040.. Troponin is elevated at 0.12 the patient has had history of elevated troponin. I discussed the patient my attending physician. We have had to increase patient's oxygen requirement here in the emergency department. We feel will be best for the patient to be admitted for further evaluation of her symptoms. Diagnosis Primary Impression: CHF (congestive heart failure) Qualified Codes: I50.9 - Heart failure, unspecified Additional Impression: Elevated troponin I level Admitting Information Admitting Physician Requests: Admit Condition: Stable Mirta Baker Dec 19, 2016 11:56
[2016-12-19] MEDS ORDERED: RESP: ALBUTEROL 2.5 MG/IPRATROPIUM 0.5 MG NEB (SCH) INH ONE (12:15)
[2016-12-19] MEDS ORDERED: SODIUM CHLORIDE 0.9% FLUSH 10 ML FLUSH IVF PRN (12:15)
[2016-12-19 12:31] LABS: AUTOMATED NEUTROPHIL # 3.2 TH/MM3 (1.8-7.7); BASOPHIL # 0.1 TH/MM3 (0-0.2); BASOPHIL % 1.1 % (0.0-2.0); EOSINOPHIL # 0.1 TH/MM3 (0-0.4); EOSINOPHIL % 2.7 % (0.0-4.0); HEMATOCRIT 39.8 % (35.0-46.0); HEMO FLAGS DIFF FINAL; LYMPH % 16.9 % (9.0-44.0); LYMPHOCYTE # 0.8 TH/MM3 (1.0-4.8); MEAN CELL VOLUME 93.5 FL (80.0-100.0); MEAN CORPUSCULAR HEMOGLOBIN 29.9 PG (27.0-34.0); MEAN CORPUSCULAR HGB CONC 31.9 % (32.0-36.0); MONO % 14.2 % (0.0-8.0); NEUT % 65.1 % (16.0-70.0); PLATELET COUNT 205 TH/MM3 (150-450); RED BLOOD COUNT 4.26 MIL/MM3 (4.00-5.30); RED CELL DISTRIBUTION WIDTH 15.8 % (11.6-17.2); WHITE BLOOD COUNT 4.9 TH/MM3 (4.0-11.0)
[2016-12-19] MEDS ORDERED: CARV6.25 PO (12:32)
[2016-12-19] MEDS ORDERED: ZOCO40TA PO (12:32)
[2016-12-19] MEDS ORDERED: LISI-515 PO (12:33)
[2016-12-19] MEDS ORDERED: ALBU0.08 NEB (12:33)
[2016-12-19] MEDS ORDERED: FLUT1INH INH (12:33)
--- NOTE | 2016-12-19 12:35 | RADRPT ---
EXAM DATE/TIME: 12/19/2016 12:15 [facility] COMPARISON: CHEST SINGLE AP, November 25, 2016, 0:06. INDICATIONS : Shortness of breath. MEDICAL HISTORY : Chronic obstructive pulmonary disease. Congestive heart failure. Hypertension. SURGICAL HISTORY : Pacemaker. Colon resection. Appendectomy. Hysterectomy ENCOUNTER: Initial ACUITY: 1 day PAIN SCORE: 0/10 LOCATION: Bilateral chest FINDINGS: Stable single lead AICD device. Cardiac silhouette remains enlarged. Linear parenchymal opacities in the right lower lung zone consistent with atelectasis/scarring. Pulmonary vascularity is within [place] l limits given portable technique. Remainder of the exam is unchanged. CONCLUSION: 1. Cardiomegaly without evidence for failure. 2. Linear right lower lung zone opacities consistent with atelectasis/scarring. Blayne Floyd MD on December 19, 2016 at 12:32 Board Certified Radiologist. This report was verified electronically.
[2016-12-19 12:41] LABS: INTERNATIONAL NORMALIZED RATIO 1.1 RATIO
--- NOTE | 2016-12-19 12:52 | RADRPT ---
EXAM DATE/TIME: 12/19/2016 12:18 [facility] COMPARISON: No previous studies available for comparison. INDICATIONS : Bilateral leg swelling. MEDICAL HISTORY : Congestive heart failure. Hypercholesterolemia. CVA. Hypertension. Anticogulant therapy. CPOD. Asthm a. Dyspnea. Diverticulois. Diabetes. SURGICAL HISTORY : Appendectomy.Cholecystectomy. Hysterectomy.Oral surgery. Pacemaker. Partial colectomy. ENCOUNTER: Initial ACUITY: 3 days PAIN SCORE: 4/10 LOCATION: Bilateral legs. TECHNIQUE: Venous ultrasound of the left and right leg was performed from the inguinal ligament to the proximal calf. Real-time, color Doppler and spectral tracing, compression and augmentation techniques were us ed. FINDINGS: RIGHT LEG: There is normal compressibility of the deep venous system from the inguinal region to the proximal ca lf. No echogenic clot is seen in the lumen of the common femoral, femoral, popliteal, and posterior tibial veins. There is a normal response of the venous system to proximal and distal augmentation an d respiration. LEFT LEG: There is normal compressibility of the deep venous system from the inguinal region to the proximal ca lf. No echogenic clot is seen in the lumen of the common femoral, femoral, popliteal, and posterior tibial veins. There is a normal response of the venous system to proximal and distal augmentation an d respiration. CONCLUSION: 1. No DVT identified. Navid Rai MD on December 19, 2016 at 12:50 Board Certified Radiologist. This report was verified electronically.
[2016-12-19 12:54] LABS: BICARBONATE 35.6 MEQ/L (21.0-32.0); MAGNESIUM 2.3 MG/DL (1.5-2.5)
[2016-12-19 13:09] LABS: POTASSIUM 4.7 MEQ/L (3.5-5.1)
[2016-12-19] MEDS ORDERED: FUROSEMIDE 40 MG/4 ML VIAL IV PUSH ONE (13:30)
[2016-12-19 14:35] LABS: BACTERIA, URINE RARE /hpf; BLOOD, URINE TRACE (NEG); GLUCOSE,URINE NEG (NEG); KETONE, URINE NEG (NEG); NITRITE,URINE NEG (NEG); SQUAMOUS EPITHELIAL CELL URINE <1 /hpf (0-5); URINE COLOR YELLOW (YELLW/STRAW)
[2016-12-19 14:36] LABS: COMMENT (UR) CULT NOT INDICATED; CULTURE IF INDICATED CULT NOT INDICATED
[2016-12-19] MEDS ORDERED: SODIUM CHLORIDE 0.9% FLUSH 10 ML FLUSH IV FLUSH PRN (15:30)
--- NOTE | 2016-12-19 16:32 | HHI.HP ---
[facility] Service [facility] Primary Care Physician Abeba Ramirez MD Admission Diagnosis CHF EXACERBATION; Diagnoses: Chief Complaint: Shortness of breath Travel History International Travel<30 Days: No Contact w/Intl Traveler <30 Da: No Traveled to Known Affected Are: No History of Present Illness 76-year-old female with a past medical history of COPD, CHF, HLD who presented for shortness of breath. The patient is a poor historian. She states that she came to the hospital because she's been having shortness of breath for one day. She states she hadn't been feeling well recently and has had a productive cough for the past 4 days, with white sputum. She states her PCP gave her something for the cough, but she does not recall what it was. She has been noticing worsening lower extremity swelling. She denies any chest pain, but does have chronic left shoulder pain. She has been having sweats, but denies any specific fever or chills. She states she tries to stay away from salt. She states she's been eating a bag of popsicles per day. She also had a a chicken pot pie from [facility]. She states she has a human service specialist at the [facility] near the hospital ([facility] She is on home O2. She states she has a lung doctor in [facility]. She does not know her physician's names. She states she has a pacemaker because of smoking. She states she quit smoking 3 or 4 months ago. Review of Systems ROS Limitations: Poor Historian Except as stated in HPI: all other systems reviewed are Neg Past Family Social History Past Medical History COPD on home oxygen Systolic CHF Hyperlipidemia Past Surgical History Pacemaker placement Partial colectomy Appendectomy Cholecystectomy Hysterectomy Reported Medications Reported Meds & Active Scripts Active Klor-Con 10 (Potassium Chloride) 10 Meq Tab 10 Meq PO BID Furosemide 40 Mg Tab 40 Mg PO BID Spironolactone 25 Mg Tab 25 Mg PO DAILY Reported Albuterol Neb (Albuterol Sulfate) 2.5 Mg/3 Ml Neb 2.5 Mg NEB QID Breo Ellipta Inh (Fluticasone/Vilanterol) 100-25 Mcg/Act Inh 1 Puff INH DAILY Use daily at the same time. Lisinopril 20 Mg Tab 20 Mg PO BID Zocor (Simvastatin) 40 Mg Tab 40 Mg PO HS Coreg (Carvedilol) 6.25 Mg Tab 6.25 Mg PO BID Metoprolol Succinate ER 24 HR (Metoprolol Succinate) 25 Mg Tab 25 Mg PO DAILY Allergies: Coded Allergies: morphine (Unverified Allergy, Intermediate, Itching, 12/10/16) Active Ordered Medications Current Medications Medications (Trade) Dose Ordered Sig/Shamir Route Start Time Stop Time Status Last Admin (NS Flush) 2 ml UNSCH PRN IVF 12/19/16 12:15 (NS Flush) 2 ml BID IV FLUSH 12/19/16 21:00 UNV (NS Flush) 2 ml UNSCH PRN IV FLUSH 12/19/16 15:30 UNV (Lasix Inj) 40 mg BID@09,18 IVP 12/19/16 18:00 UNV (KCl) 20 meq BID PO 12/19/16 21:00 UNV (Lovenox Inj) 40 mg Q24H SQ 12/19/16 15:30 UNV (Albuterol Neb) 2.5 mg QID NEB 12/19/16 18:00 UNV (Coreg) 6.25 mg BID PO 12/19/16 21:00 UNV (Breo Ellipta 100-25 Inh) 1 puff DAILY INH 12/20/16 09:00 UNV (Prinivil) 20 mg BID PO 12/19/16 21:00 UNV (KCl) 10 meq BID PO 12/19/16 21:00 UNV (Aldactone) 25 mg DAILY PO 12/20/16 09:00 UNV Non-Formulary Medication 40 mg HS PO 12/19/16 21:00 UNV Family History Mother of unknown cancer Social History Quit Smoking 3 or 4 months ago No alcohol or drug use Physical Exam Vital Signs Vital Signs Date Time Temp Pulse Resp B/P (MAP) Pulse Ox O2 Delivery O2 Flow Rate FiO2 12/19/16 13:32 95 20 114/76 (89) 96 Nasal Cannula 4.00 12/19/16 12:23 98.1 91 20 101/71 (81) 96 Nasal Cannula 4.00 12/19/16 12:23 96 Nasal Cannula 4.00 12/19/16 11:35 98.1 93 18 101/71 (81) 96 Nasal Cannula 4.00 12/19/16 11:35 95 18 96 Nasal Cannula 4.00 12/19/16 11:31 98.1 96 18 101/71 (81) 96 Physical Exam GENERAL: Well-developed well-nourished. In no acute distress. SKIN: Warm and dry. No lesions noted. HEENT: Normocephalic. Pupils equal and round. Mucous membranes pink and moist. CARDIOVASCULAR: Regular rate and rhythm. No murmur appreciated. RESPIRATORY: No accessory muscle use. Clear to auscultation. Diminished breath sounds in the bilateral bases. No wheezing or crackles. GASTROINTESTINAL: Abdomen soft, non-tender, nondistended. Bowel sounds x4. MUSCULOSKELETAL: No obvious deformities. No clubbing or cyanosis. 2+ lower extremity pitting edema. NEUROLOGICAL: Awake and alert. No focal neurological deficits. Moves upper and lower extremities spontaneously. Normal speech. PSYCHIATRIC: Appropriate mood and affect; insight and judgment fair to normal. Laboratory Laboratory Tests Test 12/19/16 12:10 12/19/16 14:18 White Blood Count 4.9 Red Blood Count 4.26 Hemoglobin 12.7 Hematocrit 39.8 Mean Corpuscular Volume 93.5 Mean Corpuscular Hemoglobin 29.9 Mean Corpuscular Hemoglobin Concent 31.9 Red Cell Distribution Width 15.8 Platelet Count 205 Mean Platelet Volume 10.0 Neutrophils (%) (Auto) 65.1 Lymphocytes (%) (Auto) 16.9 Monocytes (%) (Auto) 14.2 Eosinophils (%) (Auto) 2.7 Basophils (%) (Auto) 1.1 Neutrophils # (Auto) 3.2 Lymphocytes # (Auto) 0.8 Monocytes # (Auto) 0.7 Eosinophils # (Auto) 0.1 Basophils # (Auto) 0.1 CBC Comment DIFF FINAL Differential Comment Prothrombin Time 12.0 Prothromb Time International Ratio 1.1 Activated Partial Thromboplast Time 25.0 Blood Urea Nitrogen 12 Creatinine 0.93 Random Glucose 95 Calcium Level 8.8 Magnesium Level 2.3 Sodium Level 140 Potassium Level 4.7 Chloride Level 100 Carbon Dioxide Level 35.6 Anion Gap 4 Estimat Glomerular Filtration Rate 71 Total Creatine Kinase 97 Troponin I 0.12 B-Type Natriuretic Peptide 1040 Urine Color YELLOW Urine Turbidity CLEAR Urine pH 8.0 Urine Specific [place] 1.009 Urine Protein NEG Urine Glucose (UA) NEG Urine Ketones NEG Urine Occult Blood TRACE Urine Nitrite NEG Urine Bilirubin NEG Urine Urobilinogen LESS THAN 2.0 Urine Leukocyte Esterase NEG Urine RBC 2 Urine WBC 1 Urine Squamous Epithelial Cells <1 Urine Bacteria RARE Microscopic Urinalysis Comment CULT NOT INDICATED Result Diagram: 12/19/16 1210 12/19/16 1210 Imaging Last Impressions Chest X-Ray 12/19/16 1211 Signed Impressions: Service Date/Time: November 12:15 - CONCLUSION: 1. Cardiomegaly without evidence for failure. 2. Linear right lower lung zone opacities consistent with atelectasis/scarring. Blayne Floyd MD Lower Extremity Ultrasound 12/19/16 0000 Signed Impressions: Service Date/Time: November 12:18 - CONCLUSION: 1. No DVT identified. MD [place] VTE Risk Assessment Caprini VTE Risk Assessment: Mod/High Risk (score >= 2) Caprini Risk Assessment Model Point Value = 1 Point Value = 2 Point Value = 3 Point Value = 5 Age 41-60 Minor surgery BMI > 25 kg/m2 Swollen legs Varicose veins or History of unexplained or recurrent spontaneous Oral contraceptives or hormone replacement Sepsis (< 1 month) Serious lung disease, including pneumonia (< 1 month) Abnormal pulmonary function Acute myocardial infarction Congestive heart failure (< 1 month) History of inflammatory bowel disease Medical patient at bed rest Age 61-74 Arthroscopic surgery Major open surgery (> 45 min) Laparoscopic surgery (> 45 min) Malignancy Confined to bed (> 72 hours) Immobilizing plaster cast Central venous access Age >= 75 History of VTE Family history of VTE Factor V Leiden Prothrombin [id number] Lupus anticoagulant Anticardiolipin antibodies Elevated serum homocysteine Heparin-induced thrombocytopenia Other congenital or acquired thrombophilia Stroke (< 1 month) Elective arthroplasty Hip, pelvis, or leg fracture Acute spinal cord injury (< 1 month) Prophylaxis Regimen Total Risk Factor Score Risk Level Prophylaxis Regimen 0-1 Low Early ambulation 2 Moderate Order ONE of the following: *Sequential Compression Device (SCD) *Heparin 5000 units SQ BID 3-4 Higher Order ONE of the following medications: *Heparin 5000 units SQ TID *Enoxaparin/Lovenox 40 mg SQ daily (WT < 150 kg, CrCl > 30 mL/min) *Enoxaparin/Lovenox 30 mg SQ daily (WT < 150 kg, CrCl > 10-29 mL/min) *Enoxaparin/Lovenox 30 mg SQ BID (WT < 150 kg, CrCl > 30 mL/min) AND/OR *Sequential Compression Device (SCD) 5 or more Highest Order ONE of the following medications: *Heparin 5000 units SQ TID (Preferred with Epidurals) *Enoxaparin/Lovenox 40 mg SQ daily (WT < 150 kg, CrCl > 30 mL/min) *Enoxaparin/Lovenox 30 mg SQ daily (WT < 150 kg, CrCl > 10-29 mL/min) *Enoxaparin/Lovenox 30 mg SQ BID (WT < 150 kg, CrCl > 30 mL/min) AND *Sequential Compression Device (SCD) Assessment and Plan Assessment and Plan 76-year-old female with a past medical history of COPD, CHF, HLD who presented for shortness of breath Acute exacerbation of chronic systolic CHF: Presented with shortness of breath and increasing lower extremity edema. Admits to noncompliance with with fluid and sodium restrictions. Reviewed: Previous echocardiogram from 04/12 showed EF 15%. BNP 1040, previously 4058 on 11/25/16. Chest x-ray image shows cardiomegaly with no edema. Troponin 0.12, previously 0.08 on 11/25/16. -Change home Lasix to IV -Continue Aldactone, carvedilol, lisinopril -Monitor intake and output -Educated again on fluid and sodium restrictions. Consult dietitian for CHF diet education. -Repeat echocardiogram -Trend troponins COPD with chronic respiratory failure: On home O2. Does not seem to be in acute exacerbation at this time. Afebrile with no leukocytosis. -Continue home nebs/inhalers -Check sputum culture Hyperlipidemia: Chronic. Continue statin DVT prophylaxis: Lovenox Discussed Condition With Patient, Husam Evans Dec 19, 2016 16:32
[2016-12-19] MEDS: LISINOPRIL 20 MG TAB PO SCH (20:27)
[2016-12-19] MEDS: CARVEDILOL 6.25 MG TAB PO SCH (20:28)
[2016-12-19] MEDS: PRAVASTATIN SOD 80 MG TAB PO SCH (20:28)
[2016-12-19] MEDS: SODIUM CHLORIDE 0.9% FLUSH 10 ML FLUSH IV FLUSH SCH (20:28)
[2016-12-19] MEDS: POTASSIUM CHLORIDE 10 MEQ CONTROLLED RELEASE TAB PO SCH (20:28)
[2016-12-19] MEDS: FUROSEMIDE 40 MG/4 ML VIAL IVP SCH (20:28)
[2016-12-19] MEDS: ENOXAPARIN SODIUM 40 MG/0.4 ML SYRINGE SQ SCH (20:29)
[2016-12-19] MEDS: RESP: ALBUTEROL 2.5 MG/3 ML NEB (SCH) INH (20:51)
[2016-12-19] MEDS ORDERED: POTASSIUM CHLORIDE 20 MEQ CONTROLLED RELEASE TAB PO SCH (21:00)
[2016-12-19] MEDS ORDERED: NON-FORMULARY DRUG (Simvastatin (Zocor) 40 MG) PO SCH (21:00)
[2016-12-20] VITALS (9 sets, daily range): BP systolic 83–110; BP diastolic 47–70; PULSE 70–97; RESP 16–20; TEMP 97.3–98.4; O2SAT 93–99
[2016-12-20] MEDS: SODIUM CHLORIDE 0.9% FLUSH 10 ML FLUSH IV FLUSH SCH ×2 (07:49→20:21)
[2016-12-20] MEDS: RESP: ALBUTEROL 2.5 MG/3 ML NEB (SCH) INH ×4 (08:23→21:32)
[2016-12-20] MEDS: LISINOPRIL 20 MG TAB PO SCH (09:08)
[2016-12-20] MEDS: POTASSIUM CHLORIDE 10 MEQ CONTROLLED RELEASE TAB PO SCH ×2 (09:08→20:20)
[2016-12-20] MEDS: SPIRONOLACTONE 25 MG TAB PO SCH (09:08)
[2016-12-20] MEDS: CARVEDILOL 6.25 MG TAB PO SCH ×2 (09:08→20:21)
[2016-12-20 09:09] LABS: BICARBONATE 37.6 MEQ/L (21.0-32.0); POTASSIUM 3.9 MEQ/L (3.5-5.1)
[2016-12-20] MEDS: FUROSEMIDE 40 MG/4 ML VIAL IVP SCH ×2 (09:09→17:00)
--- NOTE | 2016-12-20 11:44 | EKG ---
Date Performed: 12/19/2016 Time Performed: 12:02:38 PTAGE: 76 years EKG: Sinus rhythm WITH FIRST DEGREE AV BLOCK MARKED LEFT AXIS DEVIATION LEFT VENTRICULAR HYPERTROPHY AND ST-T CHANGE P OSSIBLE ANTEROSEPTAL MYOCARDIAL INFARCTION Consider anteroseptal myocardial infarction - age indeterm inate ABNORMAL ECG PREVIOUS TRACING : 11/25/2016 00.02 DOCTOR: Xavi Jacques Interpretating Date/Time 12/20/2016 11:41:39
--- NOTE | 2016-12-20 11:45 | EKG ---
Date Performed: 12/19/2016 Time Performed: 17:48:09 PTAGE: 76 years EKG: Sinus rhythm WITH FIRST DEGREE AV BLOCK WITH OCCASIONAL SUPRAVENTRICULAR PREMATURE COMPLEXES MARKED LEFT AXIS DEV IATION LEFT VENTRICULAR HYPERTROPHY AND ST-T CHANGE Consider ANTEROSEPTAL MYOCARDIAL INFARCTION - age indeterminate ABNORMAL ECG PREVIOUS TRACING : 12/19/2016 12.02 DOCTOR: Xavi Jacques Interpretating Date/Time 12/20/2016 11:42:05
--- NOTE | 2016-12-20 11:53 | HHI.PR ---
Subjective Remarks Breathing better. Admitted that she was eating [place] fried chicken and eating a box of popsicles. She states that she is usually on 2 L of oxygen at home. No complaint of chest pain. Objective Vitals Vital Signs Date Time Temp Pulse Resp B/P (MAP) Pulse Ox O2 Delivery O2 Flow Rate FiO2 12/20/16 08:26 98 Nasal Cannula 3.00 12/20/16 08:00 97.7 86 18 107/64 (78) 99 12/20/16 04:00 98.1 94 18 110/69 (83) 98 12/20/16 00:00 98.4 91 16 104/63 (77) 96 12/19/16 20:55 98 Nasal Cannula 5.00 12/19/16 20:00 99.2 89 18 92/58 (69) 99 12/19/16 20:00 98 12/19/16 18:42 97.0 97 20 111/71 (84) 96 12/19/16 18:03 102 20 100/63 (75) 96 Nasal Cannula 4.00 12/19/16 16:30 95 19 100/63 (75) 96 Nasal Cannula 4.00 12/19/16 13:32 95 20 114/76 (89) 96 Nasal Cannula 4.00 12/19/16 12:23 98.1 91 20 101/71 (81) 96 Nasal Cannula 4.00 12/19/16 12:23 96 Nasal Cannula 4.00 I/O 12/19/16 12/19/16 12/19/16 12/20/16 12/20/16 12/20/16 07:00 15:00 23:00 07:00 15:00 23:00 Intake Total 360 ml Output Total 1200 ml Balance -840 ml Intake Oral 360 ml Output Urine Total 1200 ml # Voids 1 # Bowel Movements 0 Result Diagram: 12/19/16 1210 12/20/16 0759 Objective Remarks GENERAL: Well nourished/well developed patient in no apparent distress CARDIOVASCULAR: Regular rate and rhythm RESPIRATORY: Few Bibasilar crackles. GASTROINTESTINAL: Abdomen soft, non-tender, nondistended. Normal active bowel sounds MUSCULOSKELETAL: Extremities without clubbing, cyanosis, but with trace to 1+ pitting edema. NEURO: Alert & Oriented x4 to person, place, time, and situation. Moves all ext x4 A/P Problem List: (1) Acute on chronic systolic congestive heart failure ICD Code: I50.23 - Acute on chronic systolic (congestive) heart failure Status: Acute (2) COPD (chronic obstructive pulmonary disease) ICD Code: J44.9 - COPD (chronic obstructive pulmonary disease) Status: Chronic (3) Nonadherence with dietary restriction ICD Code: Z91.11 - Patient's noncompliance with dietary regimen Assessment and Plan 76-year-old female with a past medical history of COPD with O2 dependence, chronic systolic CHF, HLD who presented for shortness of breath Acute exacerbation of chronic systolic CHF with presenting acute on chronic respiratory failure: Presented with shortness of breath and increasing lower extremity edema. Admits to noncompliance with with fluid and sodium restrictions along with diet. Patient was eating a box of popsicles or eating [place] fried chicken. Dietary reeducation performed. Reviewed: Previous echocardiogram from 04/12 showed EF 15%. BNP 1040, previously 4058 on 11/25/16. Chest x-ray image shows cardiomegaly with no edema. Troponin 0.12, previously 0.08 on 11/25/16. Elevated troponin likely due to chronic systolic CHF. -Continue Lasix IV and consider going to by mouth, strict I&O's -Continue Aldactone, carvedilol, lisinopril -Monitor intake and output Consult dietitian for CHF diet education. - COPD with chronic respiratory failure: On home O2 at 2 L and had to be bumped up to 4 L on admission. Does not seem to be in acute COPD exacerbation at this time. Afebrile with no leukocytosis. -Continue home nebs/inhalers Hyperlipidemia: Chronic. Continue statin DVT prophylaxis: Lovenox Discharge Planning Likely discharged home the morning if continues to improve clinically. Radha Cordova MD Dec 20, 2016 11:53
[2016-12-20] MEDS ORDERED: ACETAMINOPHEN 325 MG TAB PO PRN (12:15)
[2016-12-20] MEDS: ENOXAPARIN SODIUM 40 MG/0.4 ML SYRINGE SQ SCH (17:00)
[2016-12-20] MEDS: FLUTICASONE 100 MCG/VILANTEROL 25 MCG INHALER INH SCH (17:32)
[2016-12-20] MEDS: PRAVASTATIN SOD 80 MG TAB PO SCH (20:20)
[2016-12-21] VITALS (9 sets, daily range): BP systolic 90–128; BP diastolic 53–72; PULSE 90–97; RESP 20; TEMP 97.4–99; O2SAT 93–100
[2016-12-21] MEDS: RESP: ALBUTEROL 2.5 MG/3 ML NEB (SCH) INH ×4 (08:00→21:51)
[2016-12-21] MEDS: FUROSEMIDE 40 MG TAB PO SCH ×2 (09:31→18:05)
[2016-12-21] MEDS: POTASSIUM CHLORIDE 10 MEQ CONTROLLED RELEASE TAB PO SCH ×2 (09:31→21:55)
[2016-12-21] MEDS: CARVEDILOL 6.25 MG TAB PO SCH ×2 (09:32→21:55)
[2016-12-21] MEDS: SODIUM CHLORIDE 0.9% FLUSH 10 ML FLUSH IV FLUSH SCH ×2 (09:32→21:55)
[2016-12-21] MEDS: SPIRONOLACTONE 25 MG TAB PO SCH (09:32)
[2016-12-21] MEDS: LISINOPRIL 5 MG TAB PO SCH (09:32)
[2016-12-21] MEDS: FLUTICASONE 100 MCG/VILANTEROL 25 MCG INHALER INH SCH (09:33)
--- NOTE | 2016-12-21 12:24 | HHI.PR ---
Subjective Remarks Follow up for respiratory failure and CHF exacerbation Patient stated that she continues to feel SOB and feels like she needs to stay in hospital. Denies any cough. Patient upset because she stated that during hospitalization she had "no one waiting on her." Her nurse was at the bedside during her complaints. Patient stated that she was talking about the staff prior from today. Patient continues to be on 3 L of oxygen. I also dealt with nurse at the bedside in regards to urine output. Per nurse urine was not measured because patient had stools in her urine. She stated that she had a few 100 cc out during this episode. Objective Vitals Vital Signs Date Time Temp Pulse Resp B/P (MAP) Pulse Ox O2 Delivery O2 Flow Rate FiO2 12/21/16 08:00 98.4 97 20 112/70 (84) 95 12/21/16 04:00 97.6 90 20 99/64 (76) 100 12/21/16 00:00 97.5 94 20 90/53 (65) 95 12/20/16 21:32 98 Nasal Cannula 3.00 12/20/16 20:00 97.6 97 20 93/64 (74) 96 12/20/16 20:00 97 12/20/16 16:00 97.3 82 18 103/70 (81) 96 I/O 12/20/16 12/20/16 12/20/16 12/21/16 12/21/16 12/21/16 06:59 14:59 22:59 06:59 14:59 22:59 Intake Total 360 ml 1080 ml 240 ml Output Total 1200 ml 300 ml Balance -840 ml 1080 ml -60 ml Intake Oral 360 ml 1080 ml 240 ml Output Urine Total 1200 ml 300 ml # Voids 1 3 # Bowel Movements 0 1 Result Diagram: 12/19/16 1210 12/20/16 0759 Objective Remarks GENERAL: In no acute distress. No coughing noted on exam. CARDIOVASCULAR: Regular rate and rhythm without murmurs, gallops, or rubs. RESPIRATORY: Breath sounds equal bilaterally. No accessory muscle use. GASTROINTESTINAL: Abdomen soft, non-tender, nondistended. Medications and IVs Current Medications Sodium Chloride (NS Flush) 2 ml UNSCH PRN IVF FLUSH AFTER USING IV ACCESS; Start 12/19/16 at 12:15; Stop 12/19/16 at 17:49; Status DC Albuterol/ Ipratropium (Duoneb Neb) 1 ampule ONCE ONCE INH Last administered on 12/19/16 12:22; Start 12/19/16 at 12:15; Stop 12/19/16 at 12:16; Status DC Furosemide (Lasix Inj) 40 mg ONCE ONCE IV PUSH Last administered on 12/19/16 14:05; Start 12/19/16 at 13:30; Stop 12/19/16 at 13:31; Status DC Sodium Chloride (NS Flush) 2 ml BID IV FLUSH Last administered on 12/21/16 09: 32; Start 12/19/16 at 21:00 Sodium Chloride (NS Flush) 2 ml UNSCH PRN IV FLUSH FLUSH AFTER USING IV ACCESS ; Start 12/19/16 at 15:30 Furosemide (Lasix Inj) 40 mg BID@ IVP Last administered on 12/20/16 09:09 ; Start 12/19/16 at 18:00; Stop 12/21/16 at 08:00; Status DC Potassium Chloride (KCl) 20 meq BID PO ; Start 12/19/16 at 21:00; Stop 12/19/16 at 21:00; Status DC Enoxaparin Sodium (Lovenox Inj) 40 mg Q24H SQ Last administered on 12/20/16 17 :00; Start 12/19/16 at 18:00 Albuterol Sulfate (Albuterol Neb) 2.5 mg QID NEB INH Last administered on 12/20 21:32; Start 12/19/16 at 18:00 Carvedilol (Coreg) 6.25 mg BID PO Last administered on 12/21/16 09:32; Start 12/19/16 at 21:00 Fluticasone/ Vilanterol (Breo Ellipta 100-25 Inh) 1 puff DAILY INH Last administered on 12/21/16 09:33; Start 12/20/16 at 09:00 Lisinopril (Prinivil) 20 mg BID PO Last administered on 12/20/16 09:08; Start 12/19/16 at 21:00; Stop 12/20/16 at 12:11; Status DC Potassium Chloride (KCl) 10 meq BID PO Last administered on 12/21/16 09:31; Start 12/19/16 at 21:00 Spironolactone (Aldactone) 25 mg DAILY PO Last administered on 12/21/16 09:32 ; Start 12/20/16 at 09:00 Non-Formulary Medication 40 mg HS PO ; Start 12/19/16 at 21:00; Status UNV Pravastatin Sodium (Pravachol) 80 mg HS PO Last administered on 12/20/16 20:20 ; Start 12/19/16 at 21:00 Furosemide (Lasix) 40 mg BID@09,18 PO Last administered on 12/21/16 09:31; Start 12/21/16 at 09:00 Lisinopril (Prinivil) 5 mg DAILY PO Last administered on 12/21/16 09:32; Start 12/21/16 at 09:00 Acetaminophen (Tylenol) 650 mg Q4H PRN PO PAIN 1-10 AND/OR FEVER >101F Last administered on 12/20/16 13:33; Start 12/20/16 at 12:15 A/P Problem List: (1) Acute on chronic systolic congestive heart failure ICD Code: I50.23 - Acute on chronic systolic (congestive) heart failure Status: Acute Permanent Comment: EF 15-20% 04/25/16 Last Edited By: Radha Cordova on Dec 20, 2016 11:49 (2) COPD (chronic obstructive pulmonary disease) ICD Code: J44.9 - COPD (chronic obstructive pulmonary disease) Status: Chronic (3) Nonadherence with dietary restriction ICD Code: Z91.11 - Patient's noncompliance with dietary regimen Assessment and Plan 76-year-old female with a past medical history of COPD with O2 dependence, chronic systolic CHF, HLD who presented for shortness of breath Acute exacerbation of chronic systolic CHF with presenting acute on chronic respiratory failure secondary to noncompliance. -Previous echocardiogram from 04/12 showed EF 15%. BNP 1040, previously 4058 on 11/25/16. Chest x-ray image shows cardiomegaly with no edema. Troponin 0.12 , previously 0.08 on 11/25/16. Elevated troponin likely due to chronic systolic CHF. -Patient was switched to oral Lasix. Urine not being measure since patient is not urine from stool. From documentation and speak with nurse seems like patient has good urine output. Education given to the patient. -Continue with oral Lasix. -Continue Aldactone, carvedilol, lisinopril -Monitor intake and output -Will try to wean off of oxygen to her baseline. COPD with chronic respiratory failure: On home O2 at 2 L and had to be bumped up to 4 L on admission. - Does not seem to be in acute COPD exacerbation at this time. Afebrile with no leukocytosis. -Continue home nebs/inhalers Hyperlipidemia: Chronic. Continue statin DVT prophylaxis: Lovenox Discharge Planning Clinically patient is improving but does not feel like she improved enough to be discharged home today. Will try to wean her back down to her baseline as tolerated. Consider discharge home tomorrow. Lakshmi Schulte MD Dec 21, 2016 12:24
[2016-12-21] MEDS: ENOXAPARIN SODIUM 40 MG/0.4 ML SYRINGE SQ SCH (18:05)
[2016-12-21] MEDS: PRAVASTATIN SOD 80 MG TAB PO SCH (21:55)
[2016-12-22] VITALS: BP 101/73; PULSE 98; RESP 18; TEMP 98.6; O2SAT 98
[2016-12-22 06:00] VITALS: BP 110/61; PULSE 92; RESP 18; TEMP 98; O2SAT 99
[2016-12-22 08:00] VITALS: BP 107/56; PULSE 90; RESP 20; TEMP 98; O2SAT 95
[2016-12-22] MEDS: RESP: ALBUTEROL 2.5 MG/3 ML NEB (SCH) INH ×2 (08:02→12:00)
[2016-12-22 08:03] VITALS: O2SAT 99
[2016-12-22 09:10] VITALS: PULSE 88
[2016-12-22] MEDS: LISINOPRIL 5 MG TAB PO SCH (09:10)
[2016-12-22] MEDS: SPIRONOLACTONE 25 MG TAB PO SCH (09:10)
[2016-12-22] MEDS: CARVEDILOL 6.25 MG TAB PO SCH (09:11)
[2016-12-22] MEDS: FUROSEMIDE 40 MG TAB PO SCH (09:11)
[2016-12-22] MEDS: POTASSIUM CHLORIDE 10 MEQ CONTROLLED RELEASE TAB PO SCH (09:11)
[2016-12-22] MEDS: SODIUM CHLORIDE 0.9% FLUSH 10 ML FLUSH IV FLUSH SCH (09:12)
[2016-12-22] MEDS: FLUTICASONE 100 MCG/VILANTEROL 25 MCG INHALER INH SCH (09:12)
[2016-12-22 09:27] LABS: MEAN CELL VOLUME 93.3 FL (80.0-100.0); MEAN CORPUSCULAR HEMOGLOBIN 29.9 PG (27.0-34.0); MEAN CORPUSCULAR HGB CONC 32.1 % (32.0-36.0); PLATELET COUNT 134 TH/MM3 (150-450); RED BLOOD COUNT 4.07 MIL/MM3 (4.00-5.30); RED CELL DISTRIBUTION WIDTH 15.5 % (11.6-17.2); REVIEW FLAG FINAL; WHITE BLOOD COUNT 3.7 TH/MM3 (4.0-11.0)
[2016-12-22 09:51] LABS: POTASSIUM 3.9 MEQ/L (3.5-5.1)
[2016-12-22 12:00] VITALS: BP 102/73; PULSE 82; RESP 20; TEMP 97.6; O2SAT 91
[2016-12-22] MEDS ORDERED: PRED50 PO (12:47)
--- NOTE | 2016-12-22 12:49 | HHI.DCPOC ---
Discharge Care Plan Diagnosis: (1) Acute systolic (congestive) heart failure Goals to Promote Your Health * To prevent worsening of your condition and complications * To maintain your health at the optimal level Directions to Meet Your Goals Take your medications as prescribed Follow your dietary instruction Follow activity as directed Keep your appointments as scheduled Take your immunizations and boosters as scheduled If your symptoms worsen call your PCP, if no PCP go to Urgent Care Center or Emergency Room Smoking is Dangerous to Your Health. Avoid second hand smoke Call the 24-hour hour crisis hotline for domestic abuse at Lakshmi Schulte MD Dec 22, 2016 12:49
[2016-12-22] MEDS ORDERED: ASPI81TA11 PO (12:51)
--- NOTE | 2017-01-01 15:55 | HHI.DS ---
Discharge Summary Admission Date Dec 19, 2016 at 15:32 Discharge Date: Dec 22, 2016 Admitting Diagnosis CHF EXACERBATION; (1) Acute on chronic systolic congestive heart failure ICD Code: I50.23 - Acute on chronic systolic (congestive) heart failure Diagnosis: Principal Status: Acute (2) COPD (chronic obstructive pulmonary disease) ICD Code: J44.9 - COPD (chronic obstructive pulmonary disease) Diagnosis: Secondary Status: Chronic (3) Nonadherence with dietary restriction ICD Code: Z91.11 - Patient's noncompliance with dietary regimen Diagnosis: Principal Procedures See hospital course. Brief History - From Admission 76-year-old female with a past medical history of COPD, CHF, HLD who presented for shortness of breath. The patient is a poor historian. She states that she came to the hospital because she's been having shortness of breath for one day. She states she hadn't been feeling well recently and has had a productive cough for the past 4 days, with white sputum. She states her PCP gave her something for the cough, but she does not recall what it was. She has been noticing worsening lower extremity swelling. She denies any chest pain, but does have chronic left shoulder pain. She has been having sweats, but denies any specific fever or chills. She states she tries to stay away from salt. She states she's been eating a bag of popsicles per day. She also had a a chicken pot pie from [facility]. She states she has a practice physician at the [facility] near the hospital ([facility]). She is on home O2. She states she has a lung doctor in [facility]. She does not know her physician's names. She states she has a pacemaker because of smoking. She states she quit smoking 3 or 4 months ago. Imaging Last Impressions Chest X-Ray 12/19/16 1211 Signed Impressions: Service Date/Time: November 12:15 - CONCLUSION: 1. Cardiomegaly without evidence for failure. 2. Linear right lower lung zone opacities consistent with atelectasis/scarring. Blayne Floyd MD Lower Extremity Ultrasound 12/19/16 0000 Signed Impressions: Service Date/Time: November 12:18 - CONCLUSION: 1. No DVT identified. Navid Rai MD PE at Discharge GENERAL: In no acute distress. No coughing noted on exam. CARDIOVASCULAR: Regular rate and rhythm without murmurs, gallops, or rubs. RESPIRATORY: Breath sounds equal bilaterally. No accessory muscle use. GASTROINTESTINAL: Abdomen soft, non-tender, nondistended. Pt update on day of discharge Follow-up for COPD exacerbation Patient's daughters at the bedside during the interview. Patient status tenderness of breathing cough has improved. She feels like she is back to her baseline. She has no other complaints. Hospital Course 76-year-old female with a past medical history of COPD with O2 dependence, chronic systolic CHF, HLD who presented for shortness of breath Acute exacerbation of chronic systolic CHF with presenting acute on chronic respiratory failure secondary to noncompliance. -Previous echocardiogram from 04/12 showed EF 15%. BNP 1040, previously 4058 on 11/25/16. Chest x-ray image shows cardiomegaly with no edema. Troponin 0.12 , previously 0.08 on 11/25/16. Elevated troponin likely due to chronic systolic CHF. -Patient was initially put on IV Lasix in which her rest for status improved she was later switched to oral Lasix with good results. With diuresis were managed take her off oxygen during her hospitalization. COPD with chronic respiratory failure: On home O2 at 2 L and had to be bumped up to 4 L on admission. - Does not seem to be in acute COPD exacerbation at this time. Afebrile with no leukocytosis. -Continue home nebs/inhalers Hyperlipidemia: Chronic. Continue statin Pt Condition on Discharge: Good Discharge Disposition: Discharge Home Discharge Time: <= 30 minutes Discharge Instructions DIET: Follow Instructions for: Heart Healthy Diet Fluid Restrictions: 2L Activities you can perform: Regular-No Restrictions Follow up Referrals: PCP Follow-up - 1 Week New Medications: Aspirin DR (Aspirin EC) 81 Mg Tabdr 81 MG PO DAILY for heart disease, #30 TAB 0 Refills Prednisone (Prednisone) 50 Mg Tab 50 MG PO DAILY for rib pain with breathing, #5 TAB 0 Refills Continued Medications: Albuterol Neb (Albuterol Neb) 2.5 Mg/3 Ml Neb 2.5 MG NEB QID for Shortness Of Breath, #1 NEBULE 0 Refills Carvedilol (Coreg) 6.25 Mg Tab 6.25 MG PO BID, #60 TAB 0 Refills Fluticasone-Vilanterol Inh (Breo Ellipta Inh) 100-25 Mcg/Act Inh 1 PUFF INH DAILY, #1 INHALER 0 Refills Use daily at the same time. Furosemide (Furosemide) 40 Mg Tab 40 MG PO BID for CHF, #60 TAB 0 Refills Lisinopril (Lisinopril) 20 Mg Tab 20 MG PO BID, #30 TAB 0 Refills Potassium Chloride ER (Klor-Con 10) 10 Meq Tab 10 MEQ PO BID for Electrolyte Replacement, #60 TAB 0 Refills Simvastatin (Zocor) 40 Mg Tab 40 MG PO HS for Cholesterol Management, #30 TAB 0 Refills Spironolactone (Spironolactone) 25 Mg Tab 25 MG PO DAILY, #30 TAB 0 Refills Lakshmi Schulte MD Jan 01, 2017 15:55
== END 2016-12-22 13:57 | disposition home or self-care (01) | DRG 291 ==
LOC: NEPC 11:14 → NEDH 15:32 → N04A 18:34
PROVIDERS: ADMIT Family Medicine; ATTEND Family Medicine
PROC: 3E0F7GC Introduction of Other Therapeutic Substance into Respiratory Tract, Via Natural or Artificial Opening (ICD-10-PCS; principal; 2016-12-19)
DX: I11.0 Hypertensive heart disease with heart failure (principal); J96.20 Acute and chronic respiratory failure, unspecified whether with hypoxia or hypercapnia; Z99.81 Dependence on supplemental oxygen; I48.91 Unspecified atrial fibrillation; J44.9 Chronic obstructive pulmonary disease, unspecified; I25.10 Atherosclerotic heart disease of native coronary artery without angina pectoris; I50.23 Acute on chronic systolic (congestive) heart failure; Z86.73 Personal history of transient ischemic attack (TIA), and cerebral infarction without residual deficits; Z87.891 Personal history of nicotine dependence; F41.9 Anxiety disorder, unspecified; E78.00 Pure hypercholesterolemia, unspecified; E11.9 Type 2 diabetes mellitus without complications; R74.8 Abnormal levels of other serum enzymes; E78.5 Hyperlipidemia, unspecified; G89.29 Other chronic pain; M25.512 Pain in left shoulder; Z95.0 Presence of cardiac pacemaker; Z91.19 Patient's noncompliance with other medical treatment and regimen; Z91.11 Patient's noncompliance with dietary regimen
CPT/HCPCS: 71010; 80048; 81001; 82550; 83735; 83880; 84484; 85025; 85027; 85610; 85730; 93005; 93970; 94640; 94664; 96374; J1650; J1940; J7613

== ENCOUNTER 2017-06-28 18:15 | Observation (INO) | payer MEDICARE, OTHER ==
[~2017-06-28] VITALS: Ht 172.7 cm; Wt 68.0 kg
[~2017-06-28 18:15] MED LIST changes: +ALBU0.08 NEB; +ASPI81TA23 PO; +CARV6.25 PO; -FAMO20TA2 PO; +FLUT1INH INH; +KLOR10TA PO; +LISI-515 PO; +METO1TAB42 PO; -METO25TA6 PO; -POTA-243 PO; -PRED20 PO; +PRED50 PO; -SYMB160A INH; +ZOCO40TA PO
[2017-06-28 18:23] VITALS: BP 128/80; PULSE 135; RESP 24; TEMP 98; O2SAT 94
--- NOTE | 2017-06-28 19:07 | PD ---
HPI Chief Complaint: Respiratory Symptoms Time Seen by Provider: 18:59 Travel History International Travel<30 days: No Contact w/Intl Traveler<30days: No Traveled to known affect area: No History of Present Illness HPI 77-year-old female with history of COPD, CHF, hyperlipidemia, on home O2, here for evaluation of shortness of breath and epigastric abdominal pain. The patient reports pressure and points to her epigastric area. She is a poor historian and is unable to describe the discomfort any further. She is unsure if she has had abdominal surgeries. She also describes having shortness of breath and a cough. PFSH Past Medical History Hx Anticoagulant Therapy: Yes Arthritis: No Asthma: Yes Anxiety: Yes Depression: No Heart Rhythm Problems: Yes Cancer: No Cardiovascular Problems: Yes High Cholesterol: Yes Chemotherapy: No Chest Pain: Yes Congestive Heart Failure: Yes COPD: Yes Cerebrovascular Accident: Yes Diabetes: Yes Diminished Hearing: No Endocrine: No Gastrointestinal Disorders: Yes (DIVERTICULOSIS) GERD: No Glaucoma: No Genitourinary: No Headaches: No Hepatitis: No Hiatal Hernia: No Hypertension: Yes Immune Disorder: No Kidney Stones: No Musculoskeletal: Yes Neurologic: Yes Psychiatric: Yes Reproductive: No Respiratory: Yes Immunizations Current: Yes Migraines: No Myocardial Infarction: No Radiation Therapy: No Renal Failure: No Seizures: No Sleep Apnea: No Thyroid Disease: No Ulcer: No Menopausal: Yes : 8 Para: 8 Miscarriage: 0 : 0 Past Surgical History Abdominal Surgery: Yes (PARTIAL COLECTOMY FROM DIVERTICULITIS, appendectomy) AICD: No Appendectomy: Yes Arteriovenous Shunt: No Cardiac Surgery: No Cholecystectomy: Yes Ear Surgery: No Endocrine Surgery: No Eye Surgery: No Genitourinary Surgery: No Gynecologic Surgery: Yes (HYSTERECTOMY - PT UNSURE IF THEY TOOK HER OVERIES) Hysterectomy: Yes Insulin Pump: No Joint Replacement: No Oral Surgery: Yes (ALL TEETH REMOVED) Pacemaker: Yes (MEDTRONIC AF MRI IMPLANTED) Thoracic Surgery: No Other Surgery: Yes (hysterectomy, appendenctomy) Social History Alcohol Use: No (HX OF ) Tobacco Use: No (QUIT 2 MONTHS AGO) Substance Use: No Allergies-Medications (Allergen,Severity, Reaction): Coded Allergies: morphine (Unverified Allergy, Intermediate, Itching, 12/10/16) Reported Meds & Prescriptions Reported Meds & Active Scripts Active Aspirin EC (Aspirin) 81 Mg Tabdr 81 Mg PO DAILY Prednisone 50 Mg Tab 50 Mg PO DAILY Klor-Con 10 (Potassium Chloride) 10 Meq Tab 10 Meq PO BID Furosemide 40 Mg Tab 40 Mg PO BID Spironolactone 25 Mg Tab 25 Mg PO DAILY Reported Albuterol Neb (Albuterol Sulfate) 2.5 Mg/3 Ml Neb 2.5 Mg NEB QID Breo Ellipta Inh (Fluticasone/Vilanterol) 100-25 Mcg/Act Inh 1 Puff INH DAILY Use daily at the same time. Lisinopril 20 Mg Tab 20 Mg PO BID Zocor (Simvastatin) 40 Mg Tab 40 Mg PO HS Coreg (Carvedilol) 6.25 Mg Tab 6.25 Mg PO BID Metoprolol Succinate ER 24 HR (Metoprolol Succinate) 25 Mg Tab 25 Mg PO DAILY Review of Systems Except as stated in HPI: all other systems reviewed are Neg Physical Exam Narrative GENERAL: Well-developed, thin, elderly appearing female, no apparent distress. SKIN: Focused skin assessment warm/dry. HEAD: Atraumatic. Normocephalic. EYES: Pupils equal and round. No scleral icterus. No injection or drainage. ENT: No nasal bleeding or discharge. Mucous membranes pink and moist. NECK: Trachea midline. No JVD. CARDIOVASCULAR: Tachycardic, rate 130, regular. RESPIRATORY: No accessory muscle use. Clear to auscultation. Breath sounds equal bilaterally. GASTROINTESTINAL: Abdomen soft, nondistended. Moderate epigastric tenderness without rebound or guarding. Normal bowel sounds. MUSCULOSKELETAL: No obvious deformities. No clubbing. No cyanosis. Moderate bilateral lower extremity edema from foot to thigh. NEUROLOGICAL: Awake and alert. No obvious cranial nerve deficits. Motor grossly within normal limits. Normal speech. PSYCHIATRIC: Appropriate mood and affect; insight and judgment normal. Data Data Last Documented VS Vital Signs Date Time Temp Pulse Resp B/P (MAP) Pulse Ox O2 Delivery O2 Flow Rate FiO2 06/28/17 19:38 95 Nasal Cannula 3.00 06/28/17 18:23 98.0 135 24 128/80 (96) Orders Orders Electrocardiogram (06/28/17 19:04) Ckmb (Isoenzyme) Profile (06/28/17 19:04) Complete Blood Count With Diff (06/28/17 19:04) Comprehensive Metabolic Panel (06/28/17 19:04) Magnesium (Mg) (06/28/17 19:04) Prothrombin Time / Inr (Pt) (06/28/17 19:04) Act Partial Throm Time (Ptt) (06/28/17 19:04) Troponin I (06/28/17 19:04) Lipase (06/28/17 19:04) Chest, Single Ap (06/28/17 19:04) Ecg Monitoring (06/28/17 19:04) Iv Access Insert/Monitor (06/28/17 19:04) Oximetry (06/28/17 19:04) Sodium Chloride 0.9% Flush (Ns Flush) (06/28/17 19:15) Ct Abd/Pel W Iv Contrast(Rout) (06/28/17 ) B-Type Natriuretic Peptide (06/28/17 19:07) CKMB (06/28/17 19:45) CKMB% (06/28/17 19:45) Iohexol 350 Inj (Omnipaque 350 Inj) (06/28/17 20:58) Labs Laboratory Tests Test 06/28/17 19:45 White Blood Count 4.1 TH/MM3 Red Blood Count 4.56 MIL/MM3 Hemoglobin 14.3 GM/DL Hematocrit 43.7 % Mean Corpuscular Volume 95.8 FL Mean Corpuscular Hemoglobin 31.2 PG Mean Corpuscular Hemoglobin Concent 32.6 % Red Cell Distribution Width 14.5 % Platelet Count 139 TH/MM3 Mean Platelet Volume 10.6 FL Neutrophils (%) (Auto) 64.7 % Lymphocytes (%) (Auto) 18.0 % Monocytes (%) (Auto) 14.2 % Eosinophils (%) (Auto) 1.6 % Basophils (%) (Auto) 1.5 % Neutrophils # (Auto) 2.7 TH/MM3 Lymphocytes # (Auto) 0.7 TH/MM3 Monocytes # (Auto) 0.6 TH/MM3 Eosinophils # (Auto) 0.1 TH/MM3 Basophils # (Auto) 0.1 TH/MM3 CBC Comment DIFF FINAL Differential Comment Prothrombin Time 14.6 SEC Prothromb Time International Ratio 1.4 RATIO Activated Partial Thromboplast Time 25.2 SEC Blood Urea Nitrogen 12 MG/DL Creatinine 0.92 MG/DL Random Glucose 101 MG/DL Total Protein 7.4 GM/DL Albumin 4.0 GM/DL Calcium Level 8.9 MG/DL Magnesium Level 2.0 MG/DL Alkaline Phosphatase 101 U/L Aspartate Amino Transf (AST/SGOT) 28 U/L Alanine Aminotransferase (ALT/SGPT) 18 U/L Total Bilirubin 1.4 MG/DL Sodium Level 137 MEQ/L Potassium Level 3.7 MEQ/L Chloride Level 95 MEQ/L Carbon Dioxide Level 33.0 MEQ/L Anion Gap 9 MEQ/L Estimat Glomerular Filtration Rate 72 ML/MIN Total Creatine Kinase 126 U/L Creatine Kinase MB 2.5 NG/ML Troponin I 0.09 NG/ML B-Type Natriuretic Peptide 1608 PG/ML Lipase 157 U/L [facility] Medical Decision Making Medical Screen Exam Complete: Yes Emergency Medical Condition: Yes Medical Record Reviewed: Yes Differential Diagnosis CHF exacerbation, ACS, peptic ulcer disease, pancreatitis, hepatobiliary disease , perforated bowel Narrative Course Initial vital signs show heart rate 135, blood pressure 128/80, pulse ox 94% on 3 L nasal cannula, oral temperature 98F. CBC: WBC 4.1, hemoglobin 14.3, hematocrit 43.7, platelets 139. CMP is essentially unremarkable. Opponent is 0.09. BNP is 1608. Chest x-ray: No acute disease. CT abdomen pelvis: Abdominal aortic aneurysm and diffuse atherosclerosis. Anasarca. The patient and the patient's daughter were made aware of all findings. Patient 's daughter is aware of history of AAA. Patient's heart rate was initially in the 130s. EKG shows sinus tachycardia. Heart rate improved to the 90s without any intervention. The patient reports that her abdominal pain is improved since arriving to the emergency department, however she is complaining of mild substernal chest pressure. Her painter chassis is Dr. García. She will be admitted for further treatment and evaluation of chest pain, sinus tachycardia. Case discussed with hospitalist Dr. Ramírez who will admit the patient to her service. Diagnosis Primary Impression: CHF (congestive heart failure) Qualified Codes: I50.9 - Heart failure, unspecified Additional Impressions: Elevated troponin I level Dysrhythmia Qualified Codes: I49.9 - Cardiac arrhythmia, unspecified Admitting Information Admitting Physician Requests: Ilya Ernandez MD Jun 28, 2017 19:07
[2017-06-28] MEDS ORDERED: SODIUM CHLORIDE 0.9% FLUSH 10 ML FLUSH IVF PRN (19:15)
[2017-06-28 19:38] VITALS: O2SAT 95
--- NOTE | 2017-06-28 19:41 | RADRPT ---
EXAM DATE/TIME: 06/28/2017 19:17 [facility] COMPARISON: CHEST SINGLE AP, December 19, 2016, 12:15. INDICATIONS : Chest pain. MEDICAL HISTORY : Chronic obstructive pulmonary disease. Congestive heart failure. Hypertension. SURGICAL HISTORY : Pacemaker. Colon resection. Hysterectomy. Appendectomy ENCOUNTER: Initial ACUITY: 1 day PAIN SCORE: 10/10 LOCATION: Bilateral chest FINDINGS: Cardiomegaly, pacer/ICD device from a left subclavian transvenous approach again noted. The lungs are clear. Osseous structures are intact. CONCLUSION: No acute disease. Valente Mata MD on June 28, 2017 at 19:40 Board Certified Radiologist. This report was verified electronically.
[2017-06-28 20:00] LABS: AUTOMATED NEUTROPHIL # 2.7 TH/MM3 (1.8-7.7); BASOPHIL # 0.1 TH/MM3 (0-0.2); BASOPHIL % 1.5 % (0.0-2.0); EOSINOPHIL # 0.1 TH/MM3 (0-0.4); EOSINOPHIL % 1.6 % (0.0-4.0); HEMATOCRIT 43.7 % (35.0-46.0); HEMOGLOBIN 14.3 GM/DL (11.6-15.3); LYMPHOCYTE # 0.7 TH/MM3 (1.0-4.8); MEAN CELL VOLUME 95.8 FL (80.0-100.0); MEAN CORPUSCULAR HEMOGLOBIN 31.2 PG (27.0-34.0); MEAN CORPUSCULAR HGB CONC 32.6 % (32.0-36.0); MEAN PLATELET VOLUME 10.6 FL (7.0-11.0); MONO % 14.2 % (0.0-8.0); MONOCYTE # 0.6 TH/MM3 (0-0.9); NEUT % 64.7 % (16.0-70.0); PLATELET COUNT 139 TH/MM3 (150-450); RED BLOOD COUNT 4.56 MIL/MM3 (4.00-5.30); RED CELL DISTRIBUTION WIDTH 14.5 % (11.6-17.2); WHITE BLOOD COUNT 4.1 TH/MM3 (4.0-11.0)
[2017-06-28 20:13] LABS: INTERNATIONAL NORMALIZED RATIO 1.4 RATIO; PROTHROMBIN TIME - PATIENT 14.6 SEC (9.8-11.6)
[2017-06-28 20:16] LABS: ALT (GPT) 18 U/L (10-53); AST (GOT) 28 U/L (15-37); BLOOD UREA NITROGEN 12 MG/DL (7-18); CALCIUM 8.9 MG/DL (8.5-10.1); CHLORIDE 95 MEQ/L (98-107); CREATININE 0.92 MG/DL (0.50-1.00); GLOMERULAR FILTRATION RATE 72 ML/MIN (>89); GLUCOSE,RANDOM 101 MG/DL (74-106); SODIUM (NA) 137 MEQ/L (136-145)
[2017-06-28 20:20] LABS: ALKALINE PHOSPHATASE 101 U/L (45-117); TOTAL BILIRUBIN ADULT 1.4 MG/DL (0.2-1.0); TOTAL PROTEIN 7.4 GM/DL (6.4-8.2); TROPONIN I 0.09 NG/ML (0.02-0.05)
[2017-06-28] MEDS ORDERED: IOHEXOL 350 MG/ML 10 ML VIAL (for RAD DIAG) IVCONTRAST ONE (20:58)
--- NOTE | 2017-06-28 21:14 | RADRPT ---
EXAM DATE/TIME: 06/28/2017 20:54 [place] COMPARISON: CT ABDOMEN & PELVIS W CONTRAST, November 25, 2016, 1:32. INDICATIONS : Abdominal pain and distention. IV CONTRAST: 70 cc Omnipaque 350 (iohexol) IV ORAL CONTRAST: No oral contrast ingested. RADIATION DOSE: 7.05 CTDIvol (mGy) MEDICAL HISTORY : Cerebrovascular disease. Congestive heart failure. Hypertension.Diabetes SURGICAL HISTORY : Appendectomy. Pacemaker.Hysterectomy. ENCOUNTER: Initial ACUITY: 1 day PAIN SCALE: 6/10 LOCATION: abdomen TECHNIQUE: Volumetric scanning of the abdomen and pelvis was performed. Using automated exposure control and ad justment of the mA and/or kV according to patient size, radiation dose was kept as low as reasonably achievable to obtain optimal diagnostic quality images. DICOM format image data is available electro nically for review and comparison. FINDINGS: Cardiomegaly. Lung bases are clear. There is small amount of ascites and diffuse body wall edema. The patient is status post hysterectomy. Urinary bladder is unremarkable. No signs of bowel obstruction. Spleen, pancreas, adrenals, liver unremarkable. Gallbladder unremarkable. There is cortical thinning of both kidneys, and a cyst at the lower pole of right kidney. There is atherosclerotic plaquing of the aorta, and an infrarenal abdominal aortic aneurysm is noted at the level of the inferior mesenter ic artery measuring up to 4.1 x 1.0 m in AP and transverse dimension. There is reflux of contrast int o the hepatic veins. Osseous structures demonstrate degenerative changes of the spine. CONCLUSION: Abdominal aortic aneurysm and diffuse atherosclerosis. Anasarca. Valente Mata MD on June 28, 2017 at 21:10 Board Certified Radiologist. This report was verified electronically.
--- NOTE | 2017-06-28 21:51 | HHI.HP ---
[facility] Service [facility] Primary Care Physician Abeba Ramirez MD Admission Diagnosis CHF, elevated trop, dysrrhythmia Diagnoses: (1) Abdominal pain Diagnosis: Principal (2) CHF (congestive heart failure) Diagnosis: Principal (3) Elevated troponin Diagnosis: Principal (4) Dysrhythmia Diagnosis: Principal Travel History International Travel<30 Days: No Contact w/Intl Traveler <30 Da: No Traveled to Known Affected Are: No History of Present Illness This is a 77-year-old female with a PMH of HTN, Hyperlipidemia, COPD, O2 Dependent, CHF (Echo 04/25/16 w/ EF 15-20%, AAA and Anxiety who presented to the ER w/ complaints of SOB and epigastric pain. Pt is very poor historian, unable to give specifics. States she was seen in Package Clerk's office, Dr. García on 06/25/17 w/ normal work up, but states she didn't mention the pain at that time. Reports epigastric pain/distention usually after meals. Pain is intermittent, 8/10, non-radiating. Notes associated SOB and chest pain. On arrival, BP 128/80, HR 135, O2 sat 94% on 3L NC. While in ER, patient noted to have episodes of sinus tachycardia. CBC at baseline. Chemistry essentially unremarkable. Troponin 0.09. BNP 1608. INR 1.4. CXR with no acute findings. CT Abdomen/Pelvis abdominal aortic aneurysm 4.1 cm. Review of Systems Except as stated in HPI: all other systems reviewed are Neg ROS: 14 point review of systems otherwise negative. Past Family Social History Past Medical History PMH: HTN, Hyperlipidemia, COPD, O2 Dependent, CHF (Echo 04/25/16 w/ EF 15-20%, AAA and Anxiety Past Surgical History PAST SURGICAL HISTORY: Partial Colectomy, Appendectomy, Hysterectomy, Dental Extraction, [employer] IVF MRI Allergies: Coded Allergies: morphine (Unverified Allergy, Intermediate, Itching, 12/10/16) Family History PAST FAMILY HISTORY: Reviewed. No h/o DM or CAD Social History PAST SOCIAL HISTORY: History of alcohol and tobacco. Negative for drugs. Physical Exam Vital Signs Vital Signs Date Time Temp Pulse Resp B/P (MAP) Pulse Ox O2 Delivery O2 Flow Rate FiO2 06/28/17 19:38 95 Nasal Cannula 3.00 06/28/17 18:23 98.0 135 24 128/80 (96) 94 Physical Exam PE: GENERAL: Elderly black female in no acute distress. Daughter at bedside HEENT: PERRLA, EOMI. No scleral icterus or conjunctival pallor. No lid lag or facial droop. Edentulous CARDIOVASCULAR: Regular rate and rhythm. No obvious murmurs to auscultation. No chest tenderness to palpation. RESPIRATORY: No obvious rhonchi or wheezing. Clear to auscultation. Breath sounds equal bilaterally. GASTROINTESTINAL: Abdomen soft, non-tender, nondistended. BS normal. MUSCULOSKELETAL: Extremities without clubbing, cyanosis. 2-3+ edema. No obvious deformities. NEUROLOGICAL: Awake, alert and oriented x4. No focal neurologic deficits. Moving both upper and lower extremities spontaneously. Laboratory Laboratory Tests Test 06/28/17 19:45 White Blood Count 4.1 Red Blood Count 4.56 Hemoglobin 14.3 Hematocrit 43.7 Mean Corpuscular Volume 95.8 Mean Corpuscular Hemoglobin 31.2 Mean Corpuscular Hemoglobin Concent 32.6 Red Cell Distribution Width 14.5 Platelet Count 139 Mean Platelet Volume 10.6 Neutrophils (%) (Auto) 64.7 Lymphocytes (%) (Auto) 18.0 Monocytes (%) (Auto) 14.2 Eosinophils (%) (Auto) 1.6 Basophils (%) (Auto) 1.5 Neutrophils # (Auto) 2.7 Lymphocytes # (Auto) 0.7 Monocytes # (Auto) 0.6 Eosinophils # (Auto) 0.1 Basophils # (Auto) 0.1 CBC Comment DIFF FINAL Differential Comment Prothrombin Time 14.6 Prothromb Time International Ratio 1.4 Activated Partial Thromboplast Time 25.2 Blood Urea Nitrogen 12 Creatinine 0.92 Random Glucose 101 Total Protein 7.4 Albumin 4.0 Calcium Level 8.9 Magnesium Level 2.0 Alkaline Phosphatase 101 Aspartate Amino Transf (AST/SGOT) 28 Alanine Aminotransferase (ALT/SGPT) 18 Total Bilirubin 1.4 Sodium Level 137 Potassium Level 3.7 Chloride Level 95 Carbon Dioxide Level 33.0 Anion Gap 9 Estimat Glomerular Filtration Rate 72 Total Creatine Kinase 126 Creatine Kinase MB 2.5 Troponin I 0.09 B-Type Natriuretic Peptide 1608 Lipase 157 Result Diagram: 06/28/17194406/28/171944 Caprini VTE Risk Assessment Caprini VTE Risk Assessment: No/Low Risk (score <= 1) Caprini Risk Assessment Model Point Value = 1 Point Value = 2 Point Value = 3 Point Value = 5 Age 41-60 Minor surgery BMI > 25 kg/m2 Swollen legs Varicose veins or History of unexplained or recurrent spontaneous Oral contraceptives or hormone replacement Sepsis (< 1 month) Serious lung disease, including pneumonia (< 1 month) Abnormal pulmonary function Acute myocardial infarction Congestive heart failure (< 1 month) History of inflammatory bowel disease Medical patient at bed rest Age 61-74 Arthroscopic surgery Major open surgery (> 45 min) Laparoscopic surgery (> 45 min) Malignancy Confined to bed (> 72 hours) Immobilizing plaster cast Central venous access Age >= 75 History of VTE Family history of VTE Factor V Leiden Prothrombin [id number] Lupus anticoagulant Anticardiolipin antibodies Elevated serum homocysteine Heparin-induced thrombocytopenia Other congenital or acquired thrombophilia Stroke (< 1 month) Elective arthroplasty Hip, pelvis, or leg fracture Acute spinal cord injury (< 1 month) Prophylaxis Regimen Total Risk Factor Score Risk Level Prophylaxis Regimen 0-1 Low Early ambulation 2 Moderate Order ONE of the following: *Sequential Compression Device (SCD) *Heparin 5000 units SQ BID 3-4 Higher Order ONE of the following medications: *Heparin 5000 units SQ TID *Enoxaparin/Lovenox 40 mg SQ daily (WT < 150 kg, CrCl > 30 mL/min) *Enoxaparin/Lovenox 30 mg SQ daily (WT < 150 kg, CrCl > 10-29 mL/min) *Enoxaparin/Lovenox 30 mg SQ BID (WT < 150 kg, CrCl > 30 mL/min) AND/OR *Sequential Compression Device (SCD) 5 or more Highest Order ONE of the following medications: *Heparin 5000 units SQ TID (Preferred with Epidurals) *Enoxaparin/Lovenox 40 mg SQ daily (WT < 150 kg, CrCl > 30 mL/min) *Enoxaparin/Lovenox 30 mg SQ daily (WT < 150 kg, CrCl > 10-29 mL/min) *Enoxaparin/Lovenox 30 mg SQ BID (WT < 150 kg, CrCl > 30 mL/min) AND *Sequential Compression Device (SCD) Assessment and Plan Problem List: (1) Abdominal pain ICD Code: R10.9 - Unspecified abdominal pain Status: Acute (2) Elevated troponin ICD Code: R74.8 - Abnormal levels of other serum enzymes (3) Dysrhythmia ICD Code: I49.9 - Cardiac arrhythmia, unspecified Status: Acute (4) CHF (congestive heart failure) ICD Code: I50.9 - CHF (congestive heart failure) Status: Acute Assessment and Plan A/P: 1. Abdominal Pain: reports ongoing epigastric pain after meals, Lipase normal , LFTs normal, CT Abd/Pelvis w/ AAA 4.1cm, previously 3.7cm on CT from 11/25/16, images reviewed by me, outpatient follow up for monitoring. Pepcid IV, GI cocktail w/ lidocaine. Check U/a to eval for possible UTI. 2. Elevated Trop: c/o chest pain w/ episodes of abdominal pain. Initial trop 0.09, previously 0.12 on 12/19/16, likely secondary to underlying CHF, however will r/o ACS. Check serial cardiac enzymes. Resume home ASA, Statin, B- alonso. NTG prn. Follows w/ Dr. García, will consult as needed for further evaluation/intervention. CXR w/ no acute findings, images reviewed by me. 3. Dysrhythmia: Episodes of NSR alternating w/ Sinus Tach while in ER during episodes of abdominal pain, tachycardia likely related to pain complaints. HR currently 80's. Place on telemetry. 4. CHF: Acute on Chronic. Echo 04/25/16 w/ EF 15-20%, BNP 1608, CXR w/ no acute findings. Lasix 40mg IV bid, monitor I/O. 5. DVT Prophylaxis: Heparin sq 6. Social work for d/c planning as needed. 7. Case discussed w/ ER physician at length, labs/records/imaging reviewed by me. Problem Qualifiers (1) CHF (congestive heart failure): Qualified Codes: I50.9 - Heart failure, unspecified (2) Dysrhythmia: Qualified Codes: I49.9 - Cardiac arrhythmia, unspecified Mena Ramírez MD Jun 28, 2017 21:51
[2017-06-28] MEDS ORDERED: SODIUM CHLORIDE 0.9% FLUSH 10 ML FLUSH IV FLUSH PRN (22:00)
[2017-06-28] MEDS ORDERED: LACTULOSE SYRUP 20 GM/30 ML CUP PO PRN (22:00)
[2017-06-28] MEDS ORDERED: ACETAMINOPHEN/HYDROcodone 325 MG/10 MG TAB PO PRN (22:00)
[2017-06-28] MEDS ORDERED: SENNOSIDES 8.6 MG TAB PO PRN (22:00)
[2017-06-28] MEDS ORDERED: ACETAMINOPHEN 325 MG TAB PO PRN (22:00)
[2017-06-28] MEDS ORDERED: MAGNESIUM HYDROXIDE SUSP 30 ML CUP PO PRN (22:00)
[2017-06-28] MEDS ORDERED: ACETAMINOPHEN/HYDROcodone 325 MG/5 MG TAB PO PRN (22:00)
[2017-06-28] MEDS ORDERED: ONDANSETRON HCL 4 MG/2 ML VIAL IVP PRN (22:00)
[2017-06-28] MEDS ORDERED: BISACODYL 10 MG SUPP RECTAL PRN (22:00)
[2017-06-28] MEDS ORDERED: ALUMINUM/MAGNESIUM/SIMETH 30 ML CUP PO PRN (23:00)
[2017-06-28] MEDS ORDERED: LIDOCAINE VISCOUS 2% SOLN 15 ML UDC SWISH-SWAL PRN (23:00)
[2017-06-28] MEDS ORDERED: ATROPINE/SCOPOLAM/HYOSCYAM/PB ELIXIR 10 ML CUP PO PRN (23:00)
[2017-06-28] MEDS: FAMOTIDINE 20 MG/2 ML VIAL IV PUSH SCH (23:11)
[2017-06-28 23:28] VITALS: BP 118/65; PULSE 95; RESP 17; TEMP 97.9; O2SAT 98
[2017-06-29] VITALS (8 sets, daily range): BP systolic 110–118; BP diastolic 65–85; PULSE 70–97; RESP 14–20; TEMP 97.2–98.6; O2SAT 84–100
[2017-06-29] MEDS: OFLOXACIN 0.3% OPTH SOLN 5 ML BTL LEFT EYE SCH ×4 (01:33→17:13)
[2017-06-29] MEDS: PREDNISOLONE ACETATE 0.12% LEFT EYE SCH ×4 (01:33→17:13)
[2017-06-29 07:40] LABS: AUTOMATED NEUTROPHIL # 1.7 TH/MM3 (1.8-7.7); BASOPHIL % 0.6 % (0.0-2.0); EOSINOPHIL # 0.1 TH/MM3 (0-0.4); EOSINOPHIL % 1.8 % (0.0-4.0); HEMATOCRIT 40.3 % (35.0-46.0); HEMOGLOBIN 13.2 GM/DL (11.6-15.3); LYMPH % 30.3 % (9.0-44.0); MEAN CELL VOLUME 93.7 FL (80.0-100.0); MEAN CORPUSCULAR HEMOGLOBIN 30.7 PG (27.0-34.0); MEAN CORPUSCULAR HGB CONC 32.8 % (32.0-36.0); MEAN PLATELET VOLUME 11.2 FL (7.0-11.0); MONO % 17.1 % (0.0-8.0); MONOCYTE # 0.6 TH/MM3 (0-0.9); NEUT % 50.2 % (16.0-70.0); PLATELET COUNT 116 TH/MM3 (150-450); RED CELL DISTRIBUTION WIDTH 14.5 % (11.6-17.2); WHITE BLOOD COUNT 3.3 TH/MM3 (4.0-11.0)
[2017-06-29 07:59] LABS: ALBUMIN 3.5 GM/DL (3.4-5.0); AST (GOT) 25 U/L (15-37); CALCIUM 9.1 MG/DL (8.5-10.1); CHLORIDE 96 MEQ/L (98-107); GLUCOSE,RANDOM 86 MG/DL (74-106); SODIUM (NA) 139 MEQ/L (136-145)
[2017-06-29 08:00] LABS: CREATININE 0.79 MG/DL (0.50-1.00); GLOMERULAR FILTRATION RATE 86 ML/MIN (>89)
[2017-06-29 08:03] LABS: ALKALINE PHOSPHATASE 85 U/L (45-117); ALT (GPT) 16 U/L (10-53); TOTAL BILIRUBIN ADULT 1.2 MG/DL (0.2-1.0); TOTAL PROTEIN 6.4 GM/DL (6.4-8.2); TROPONIN I 0.09 NG/ML (0.02-0.05)
[2017-06-29 08:08] LABS: BLOOD UREA NITROGEN 11 MG/DL (7-18)
[2017-06-29] MEDS: CARVEDILOL 6.25 MG TAB PO SCH ×2 (09:00→21:52)
[2017-06-29] MEDS: FLUTICASONE 100 MCG/VILANTEROL 25 MCG INHALER INH SCH (09:37)
[2017-06-29] MEDS: SPIRONOLACTONE 25 MG TAB PO SCH (09:38)
[2017-06-29] MEDS: ASPIRIN EC 81 MG TABEC PO SCH (09:38)
[2017-06-29] MEDS: FAMOTIDINE 20 MG/2 ML VIAL IV PUSH SCH (09:40)
[2017-06-29] MEDS: FUROSEMIDE 40 MG/4 ML VIAL IV PUSH SCH ×2 (09:40→17:15)
[2017-06-29] MEDS: DOCUSATE SODIUM 50 MG/SENNA 8.6 MG TAB PO SCH ×2 (09:41→21:00)
[2017-06-29] MEDS: SODIUM CHLORIDE 0.9% FLUSH 10 ML FLUSH IV FLUSH SCH ×2 (09:41→21:52)
[2017-06-29] MEDS: HEPARIN SODIUM - SQ 10,000 UNITS/ML VIAL SQ SCH ×2 (09:45→21:53)
--- NOTE | 2017-06-29 10:18 | EKG ---
Date Performed: 06/28/2017 Time Performed: 19:12:04 PTAGE: 77 years EKG: SINUS TACHYCARDIA WITH FIRST DEGREE AV BLOCK WITH FREQUENT SUPRAVENTRICULAR PREMATURE COMPL EXES MARKED LEFT AXIS DEVIATION LEFT VENTRICULAR HYPERTROPHY AND ST-T CHANGE POSSIBLE ANTEROSEPTAL MY OCARDIAL INFARCTION ABNORMAL ECG NO PREVIOUS TRACING DOCTOR: Demetrius Murphy Interpretating Date/Time 06/29/2017 10:17:17
--- NOTE | 2017-06-29 10:31 | HHI.PR ---
Subjective Remarks This is a 77-year-old female with a PMH of HTN, Hyperlipidemia, COPD, O2 Dependent, CHF (Echo 04/25/16 w/ EF 15-20%, AAA and Anxiety who presented to the ER w/ complaints of SOB and epigastric pain. Pt is very poor historian, unable to give specifics. States she was seen in Poultry Veterinarian's office, Dr. García on 06/25/17 w/ normal work up, but states she didn't mention the pain at that time. Reports epigastric pain/distention usually after meals. Pain is intermittent, 8/10, non-radiating. Notes associated SOB and chest pain. On arrival, BP 128/80, HR 135, O2 sat 94% on 3L NC. While in ER, patient noted to have episodes of sinus tachycardia. CBC at baseline. Chemistry essentially unremarkable. Troponin 0.09. BNP 1608. INR 1.4. CXR with no acute findings. CT Abdomen/Pelvis abdominal aortic aneurysm 4.1 cm. 3-5 TROPONINS REMAIN STABLE NO INCREASE CONTINUE TO DIURESE MONITOR LABS HOPEFULLY HOME TOMORROW PT AND OT EVAL AND TREAT Objective Vitals Vital Signs Date Time Temp Pulse Resp B/P (MAP) Pulse Ox O2 Delivery O2 Flow Rate FiO2 06/29/17 09:29 97.9 82 20 110/65 (80) 100 06/28/17 23:28 97.9 95 17 118/65 (82) 98 06/28/17 19:38 95 Nasal Cannula 3.00 06/28/17 18:23 98.0 135 24 128/80 (96) 94 Result Diagram: 06/29/17 0506 06/29/17 0506 Other Results Laboratory Tests Test 06/28/17 19:45 06/29/17 00:15 06/29/17 05:06 White Blood Count 4.1 TH/MM3 3.3 TH/MM3 Red Blood Count 4.56 MIL/MM3 4.30 MIL/MM3 Hemoglobin 14.3 GM/DL 13.2 GM/DL Hematocrit 43.7 % 40.3 % Mean Corpuscular Volume 95.8 FL 93.7 FL Mean Corpuscular Hemoglobin 31.2 PG 30.7 PG Mean Corpuscular Hemoglobin Concent 32.6 % 32.8 % Red Cell Distribution Width 14.5 % 14.5 % Platelet Count 139 TH/MM3 116 TH/MM3 Mean Platelet Volume 10.6 FL 11.2 FL Neutrophils (%) (Auto) 64.7 % 50.2 % Lymphocytes (%) (Auto) 18.0 % 30.3 % Monocytes (%) (Auto) 14.2 % 17.1 % Eosinophils (%) (Auto) 1.6 % 1.8 % Basophils (%) (Auto) 1.5 % 0.6 % Neutrophils # (Auto) 2.7 TH/MM3 1.7 TH/MM3 Lymphocytes # (Auto) 0.7 TH/MM3 1.0 TH/MM3 Monocytes # (Auto) 0.6 TH/MM3 0.6 TH/MM3 Eosinophils # (Auto) 0.1 TH/MM3 0.1 TH/MM3 Basophils # (Auto) 0.1 TH/MM3 0.0 TH/MM3 CBC Comment DIFF FINAL DIFF FINAL Differential Comment Prothrombin Time 14.6 SEC Prothromb Time International Ratio 1.4 RATIO Activated Partial Thromboplast Time 25.2 SEC Blood Urea Nitrogen 12 MG/DL 11 MG/DL Creatinine 0.92 MG/DL 0.79 MG/DL Random Glucose 101 MG/DL 86 MG/DL Total Protein 7.4 GM/DL 6.4 GM/DL Albumin 4.0 GM/DL 3.5 GM/DL Calcium Level 8.9 MG/DL 9.1 MG/DL Magnesium Level 2.0 MG/DL Alkaline Phosphatase 101 U/L 85 U/L Aspartate Amino Transf (AST/SGOT) 28 U/L 25 U/L Alanine Aminotransferase (ALT/SGPT) 18 U/L 16 U/L Total Bilirubin 1.4 MG/DL 1.2 MG/DL Sodium Level 137 MEQ/L 139 MEQ/L Potassium Level 3.7 MEQ/L 3.5 MEQ/L Chloride Level 95 MEQ/L 96 MEQ/L Carbon Dioxide Level 33.0 MEQ/L 33.0 MEQ/L Anion Gap 9 MEQ/L 10 MEQ/L Estimat Glomerular Filtration Rate 72 ML/MIN 86 ML/MIN Total Creatine Kinase 126 U/L Creatine Kinase MB 2.5 NG/ML Troponin I 0.09 NG/ML 0.09 NG/ML 0.09 NG/ML B-Type Natriuretic Peptide 1608 PG/ML Lipase 157 U/L Hematology Comments Imaging Last Impressions Chest X-Ray 06/28/17 2716 Signed Impressions: Service Date/Time: Wednesday, June 28, 2017 19:17 - CONCLUSION: No acute disease. Valente Mata MD Abdomen/Pelvis CT 06/28/17 0000 Signed Impressions: Service Date/Time: Wednesday, June 28, 2017 20:54 - CONCLUSION: Abdominal aortic aneurysm and diffuse atherosclerosis. Anasarca. Valente Mata MD Objective Remarks GENERAL: Awake alert and oriented 3 talkative and cooperative SKIN: Warm and dry. HEAD: Atraumatic. Normocephalic. EYES: Pupils equal and round. No scleral icterus. No injection or drainage. Extraocular muscles intact ENT: No nasal bleeding or discharge. Mucous membranes pink and moist. Tongue is midline NECK: Trachea midline. No JVD. Supple CARDIOVASCULAR: Regular rate and rhythm. S1-S2 no S3 or S4 RESPIRATORY: No accessory muscle use. Clear to auscultation. Breath sounds equal bilaterally. GASTROINTESTINAL: Abdomen soft, non-tender, nondistended. Hepatic and splenic margins not palpable. MUSCULOSKELETAL: Extremities without clubbing, cyanosis, +1-2 lower extremity edema chronic. No obvious deformities. NEUROLOGICAL: Awake and alert. No obvious cranial nerve deficits. Motor grossly within normal limits. Five out of 5 muscle strength in the arms and legs. Normal speech. PSYCHIATRIC: INAppropriate mood and affect; insight and judgment ABnormal. Medications and IVs Current Medications Sodium Chloride (NS Flush) 2 ml UNSCH PRN IVF FLUSH AFTER USING IV ACCESS; Start 06/28/17 at 19:15; Stop 06/28/17 at 22:03; Status DC Iohexol (Omnipaque 350 Inj) 70 ml STK-MED ONCE IVCONTRAST Last administered on 06/28/17at 20:58; Start 06/28/17 at 20:58; Stop 06/28/17 at 20:59; Status DC Furosemide (Lasix Inj) 40 mg BID@18 IV PUSH Last administered on 06/29/17at 09 :40; Start 06/29/17 at 09:00 Sodium Chloride (NS Flush) 2 ml UNSCH PRN IV FLUSH FLUSH AFTER USING IV ACCESS ; Start 06/28/17 at 22:00 Sodium Chloride (NS Flush) 2 ml BID IV FLUSH Last administered on 06/29/17at 09: 41; Start 06/29/17 at 09:00 Ondansetron HCl (Zofran Inj) 4 mg Q6H PRN IVP NAUSEA OR VOMITING; Start at 22:00 Heparin Sodium (Porcine) (Heparin Inj) 5,000 units Q12H SQ Last administered on 06/29/17at 09:45; Start 06/29/17 at 09:00 Acetaminophen (Tylenol) 650 mg Q6H PRN PO FEVER/PAIN SCALE 1 TO 2; Start at 22:00 Acetaminophen/ Hydrocodone Bitart ([place] 5-325 Mg) 1 tab Q4H PRN PO PAIN SCALE 3 TO 5; Start 06/28/17 at 22:00 Acetaminophen/ Hydrocodone Bitart ([place] 10-325 Mg) 1 tab Q4H PRN PO PAIN SCALE 6 TO 10; Start 06/28/17 at 22:00 Senna/Docusate Sodium (Bobbi-Colace) 1 tab BID PO Last administered on 06/29/17at 09:41; Start 06/29/17 at 09:00 Magnesium Hydroxide (Milk Of Magnesia Liq) 30 ml Q12H PRN PO Mild constipation ; Start 06/28/17 at 22:00 Sennosides (Senokot) 17.2 mg Q12H PRN PO Moderate constipation; Start 06/28/17 at 22:00 Bisacodyl (Dulcolax Supp) 10 mg DAILY PRN RECTAL SEVERE CONSITIPATION/ IF NPO; Start 06/28/17 at 22:00 Lactulose (Lactulose Liq) 30 ml DAILY PRN PO SEVERE CONSITIPATION / IF PO; Start 06/28/17 at 22:00 Aspirin (Ecotrin Ec) 81 mg DAILY PO Last administered on 06/29/17at 09:38; Start 06/29/17 at 09:00 Carvedilol (Coreg) 6.25 mg BID PO ; Start 06/29/17 at 09:00 Fluticasone/ Vilanterol (Breo Ellipta 100-25 Inh) 1 puff DAILY INH Last administered on 06/29/17at 09:37; Start 06/29/17 at 09:00 Spironolactone (Aldactone) 25 mg DAILY PO Last administered on 06/29/17at 09:38; Start 06/29/17 at 09:00 Pravastatin Sodium (Pravachol) 80 mg HS PO ; Start 06/29/17 at 21:00 Famotidine (Pepcid Inj) 20 mg Q12H IV PUSH Last administered on 06/29/17at 09:40 ; Start 06/28/17 at 23:00 Atropine/Hyoscyam/ Phenobarb/Scopol ( Liq) 10 ml Q6H PRN PO GI DISTRESS ; Start 06/28/17 at 23:00 Al Hydrox/Mg Hydrox/Simethicone (Mag-Al Plus Susp Liq) 30 ml Q6H PRN PO GI DISTRESS; Start 06/28/17 at 23:00 Lidocaine HCl (Xylocaine 2% Viscous) 15 ml Q6H PRN SWISH-SWAL GI DISTRESS; Start 06/28/17 at 23:00 Ofloxacin (Ocuflox 0.3% Opth Soln) 1 drop Q6HR LEFT EYE Last administered on 06/29/17at 05:45; Start 06/29/17 at 00:00 Prednisolone Acetate (Pred Mild 0.12% Opth Susp) 1 drop Q6H LEFT EYE Last administered on 06/29/17at 05:44; Start 06/28/17 at 23:30 A/P Problem List: (1) Abdominal pain ICD Code: R10.9 - Unspecified abdominal pain Status: Acute (2) Elevated troponin ICD Code: R74.8 - Abnormal levels of other serum enzymes (3) Dysrhythmia ICD Code: I49.9 - Cardiac arrhythmia, unspecified Status: Acute (4) CHF (congestive heart failure) ICD Code: I50.9 - CHF (congestive heart failure) Status: Acute Assessment and Plan 1. Abdominal Pain: reports ongoing epigastric pain after meals, Lipase normal , LFTs normal, CT Abd/Pelvis w/ AAA 4.1cm, previously 3.7cm on CT from 11/25/16, images reviewed by me, outpatient follow up for monitoring. Pepcid IV, GI cocktail w/ lidocaine. Check U/a to eval for possible UTI. 2. Elevated Trop: c/o chest pain w/ episodes of abdominal pain. Initial trop 0.09, previously 0.12 on 12/19/16, likely secondary to underlying CHF, however will r/o ACS. Check serial cardiac enzymes. Resume home ASA, Statin, B- alonso. NTG prn. Follows w/ Dr. García, will consult as needed for further evaluation/intervention. CXR w/ no acute findings, images reviewed by me. Troponins remained flat 3. Dysrhythmia: Episodes of NSR alternating w/ Sinus Tach while in ER during episodes of abdominal pain, tachycardia likely related to pain complaints. HR currently 80's. Place on telemetry. 4. CHF: Acute on Chronic. Echo 04/25/16 w/ EF 15-20%, BNP 1608, CXR w/ no acute findings. Lasix 40mg IV bid, monitor I/O. 5. DVT Prophylaxis: Heparin sq 6. Social work for d/c planning as needed. A.m. labs Diurese Physical therapy and occupational therapy to eval and treat Discharge Planning Hopefully home next 24-48 hours Problem Qualifiers (1) Dysrhythmia: Qualified Codes: I49.9 - Cardiac arrhythmia, unspecified (2) CHF (congestive heart failure): Qualified Codes: I50.9 - Heart failure, unspecified Barrera Rey DO Jun 29, 2017 10:31
[2017-06-29] MEDS ORDERED: RESP: ALBUTEROL 2.5 MG/IPRATROPIUM 0.5 MG NEB (PRN) NEB (10:45)
[2017-06-29 12:18] LABS: BILIRUBIN, URINE NEG (NEG); BLOOD, URINE TRACE (NEG); GLUCOSE,URINE NEG (NEG); KETONE, URINE NEG (NEG); NITRITE,URINE NEG (NEG); SQUAMOUS EPITHELIAL CELL URINE 1 /hpf (0-5); URINE COLOR LIGHT-YELLOW (YELLW/STRAW); URINE LEUKOCYTE ESTERASE NEG (NEG)
[2017-06-29] MEDS: LISINOPRIL 20 MG TAB PO SCH (21:52)
[2017-06-29] MEDS: PRAVASTATIN SOD 40 MG TAB PO SCH (21:53)
[2017-06-29] MEDS: POTASSIUM CHLORIDE 10 MEQ CONTROLLED RELEASE TAB PO SCH (21:53)
--- NOTE | 2017-06-29 22:12 | HHI.PR ---
Subjective Remarks NOT SEEN Objective Vitals Vital Signs Date Time Temp Pulse Resp B/P (MAP) Pulse Ox O2 Delivery O2 Flow Rate FiO2 06/29/17 19:19 98.3 97 16 115/70 (85) 96 06/29/17 16:00 98.6 73 18 117/85 (96) 100 06/29/17 15:35 73 06/29/17 13:04 97.2 86 18 118/72 (87) 84 06/29/17 12:25 77 06/29/17 09:29 97.9 82 20 110/65 (80) 100 06/29/17 07:25 83 06/28/17 23:28 97.9 95 17 118/65 (82) 98 Result Diagram: 06/29/17 0506 06/29/17 0506 Imaging Last Impressions Chest X-Ray 06/28/17 1904 Signed Impressions: Service Date/Time: Wednesday, June 28, 2017 19:17 - CONCLUSION: No acute disease. Valente Mata MD Abdomen/Pelvis CT 06/28/17 0000 Signed Impressions: Service Date/Time: Wednesday, June 28, 2017 20:54 - CONCLUSION: Abdominal aortic aneurysm and diffuse atherosclerosis. Anasarca. Valente Mata MD Objective Remarks GENERAL: Awake alert and oriented 3 talkative and cooperative SKIN: Warm and dry. HEAD: Atraumatic. Normocephalic. EYES: Pupils equal and round. No scleral icterus. No injection or drainage. Extraocular muscles intact ENT: No nasal bleeding or discharge. Mucous membranes pink and moist. Tongue is midline NECK: Trachea midline. No JVD. Supple CARDIOVASCULAR: Regular rate and rhythm. S1-S2 no S3 or S4 RESPIRATORY: No accessory muscle use. Clear to auscultation. Breath sounds equal bilaterally. GASTROINTESTINAL: Abdomen soft, non-tender, nondistended. MUSCULOSKELETAL: Extremities without clubbing, cyanosis, +1-2 lower extremity edema chronic. No obvious deformities. NEUROLOGICAL: Awake and alert. No obvious cranial nerve deficits. Motor grossly within normal limits. Five out of 5 muscle strength in the arms and legs. Normal speech. A/P Problem List: (1) Abdominal pain ICD Code: R10.9 - Unspecified abdominal pain Status: Acute (2) Elevated troponin ICD Code: R74.8 - Abnormal levels of other serum enzymes (3) Dysrhythmia ICD Code: I49.9 - Cardiac arrhythmia, unspecified Status: Acute (4) CHF (congestive heart failure) ICD Code: I50.9 - CHF (congestive heart failure) Status: Acute Assessment and Plan 1. Abdominal Pain: reports ongoing epigastric pain after meals, Lipase normal , LFTs normal, CT Abd/Pelvis w/ AAA 4.1cm, previously 3.7cm on CT from 11/25/16, images reviewed by me, outpatient follow up for monitoring. Pepcid IV, GI cocktail w/ lidocaine. Check U/a to eval for possible UTI. 2. Elevated Trop: c/o chest pain w/ episodes of abdominal pain. Initial trop 0.09, previously 0.12 on 12/19/16, likely secondary to underlying CHF, however will r/o ACS. Check serial cardiac enzymes. Resume home ASA, Statin, B- alonso. NTG prn. Follows w/ Dr. García, will consult as needed for further evaluation/intervention. CXR w/ no acute findings, images reviewed by me. Troponins remained flat 3. Dysrhythmia: Episodes of NSR alternating w/ Sinus Tach while in ER during episodes of abdominal pain, tachycardia likely related to pain complaints. HR currently [address]'s. Place on telemetry. 4. CHF: Acute on Chronic. Echo 04/25/16 w/ EF 15-20%, BNP 1608, CXR w/ no acute findings. Lasix 40mg IV bid, monitor I/O. 5. DVT Prophylaxis: Heparin sq 6. Physical therapy and occupational therapy to eval and treat Problem Qualifiers (1) Dysrhythmia: Qualified Codes: I49.9 - Cardiac arrhythmia, unspecified (2) CHF (congestive heart failure): Qualified Codes: I50.9 - Heart failure, unspecified Rusty Bailey MD Jun 29, 2017 22:12
[2017-06-30] MEDS: OFLOXACIN 0.3% OPTH SOLN 5 ML BTL LEFT EYE SCH ×5 (00:46→23:49)
[2017-06-30] MEDS: PREDNISOLONE ACETATE 0.12% LEFT EYE SCH ×5 (00:46→23:50)
[2017-06-30 03:29] VITALS: BP 106/69; PULSE 85; RESP 17; TEMP 97.5; O2SAT 100
[2017-06-30 05:57] LABS: AUTOMATED NEUTROPHIL # 1.2 TH/MM3 (1.8-7.7); BASOPHIL % 1.8 % (0.0-2.0); EOSINOPHIL # 0.1 TH/MM3 (0-0.4); EOSINOPHIL % 4.1 % (0.0-4.0); HEMATOCRIT 38.6 % (35.0-46.0); HEMOGLOBIN 12.9 GM/DL (11.6-15.3); LYMPH % 33.5 % (9.0-44.0); LYMPHOCYTE # 0.9 TH/MM3 (1.0-4.8); MEAN CORPUSCULAR HEMOGLOBIN 31.3 PG (27.0-34.0); MEAN CORPUSCULAR HGB CONC 33.3 % (32.0-36.0); MEAN PLATELET VOLUME 10.5 FL (7.0-11.0); MONO % 19.1 % (0.0-8.0); MONOCYTE # 0.5 TH/MM3 (0-0.9); NEUT % 41.5 % (16.0-70.0); PLATELET COUNT 116 TH/MM3 (150-450); RED BLOOD COUNT 4.11 MIL/MM3 (4.00-5.30); RED CELL DISTRIBUTION WIDTH 14.4 % (11.6-17.2); WHITE BLOOD COUNT 2.8 TH/MM3 (4.0-11.0)
[2017-06-30 06:26] LABS: ALBUMIN 3.6 GM/DL (3.4-5.0); AST (GOT) 29 U/L (15-37); BICARBONATE 37.5 MEQ/L (21.0-32.0); BLOOD UREA NITROGEN 10 MG/DL (7-18); CALCIUM 8.8 MG/DL (8.5-10.1); CHLORIDE 93 MEQ/L (98-107); CREATININE 0.86 MG/DL (0.50-1.00); GLOMERULAR FILTRATION RATE 78 ML/MIN (>89); GLUCOSE,RANDOM 99 MG/DL (74-106); MAGNESIUM 1.9 MG/DL (1.5-2.5); SODIUM (NA) 139 MEQ/L (136-145)
[2017-06-30 06:27] LABS: ALT (GPT) 17 U/L (10-53); PHOSPHORUS 3.8 MG/DL (2.5-4.9)
[2017-06-30 06:36] LABS: ALKALINE PHOSPHATASE 92 U/L (45-117); FREE T4 1.43 NG/DL (0.76-1.46); TOTAL BILIRUBIN ADULT 0.9 MG/DL (0.2-1.0); TOTAL PROTEIN 6.6 GM/DL (6.4-8.2)
[2017-06-30 08:32] VITALS: BP 124/76; PULSE 82; RESP 18; TEMP 97.5; O2SAT 98
[2017-06-30] MEDS: POTASSIUM CHLORIDE 10 MEQ CONTROLLED RELEASE TAB PO SCH ×2 (09:41→20:52)
[2017-06-30] MEDS: LISINOPRIL 20 MG TAB PO SCH ×2 (09:42→20:53)
[2017-06-30] MEDS: ASPIRIN EC 81 MG TABEC PO SCH (09:43)
[2017-06-30] MEDS: DOCUSATE SODIUM 50 MG/SENNA 8.6 MG TAB PO SCH ×2 (09:43→20:52)
[2017-06-30] MEDS: FUROSEMIDE 40 MG/4 ML VIAL IV PUSH SCH ×2 (09:43→18:15)
[2017-06-30] MEDS: CARVEDILOL 6.25 MG TAB PO SCH ×2 (09:43→20:52)
[2017-06-30] MEDS: FAMOTIDINE 20 MG TAB PO SCH ×2 (09:43→20:52)
[2017-06-30] MEDS: SODIUM CHLORIDE 0.9% FLUSH 10 ML FLUSH IV FLUSH SCH ×2 (09:44→20:56)
[2017-06-30] MEDS: HEPARIN SODIUM - SQ 10,000 UNITS/ML VIAL SQ SCH ×2 (09:45→20:52)
[2017-06-30] MEDS: SPIRONOLACTONE 25 MG TAB PO SCH (09:48)
[2017-06-30] MEDS ORDERED: POTASSIUM CHLORIDE 20 MEQ CONTROLLED RELEASE TAB PO ONE (10:00)
[2017-06-30 11:03] VITALS: BP 105/57; PULSE 72; RESP 16; TEMP 97.4; O2SAT 98
--- NOTE | 2017-06-30 12:33 | HHI.PR ---
Subjective Remarks Follow-up elevated troponin and heart failure. Complaining of shortness of breath. Patient states she had chest and abdominal pain. Denies taking prednisone. I am not able to obtain good history from the patient because she is edentulous and not a good historian discussed with nursing Objective Vitals Vital Signs Date Time Temp Pulse Resp B/P (MAP) Pulse Ox O2 Delivery O2 Flow Rate FiO2 06/30/17 11:03 97.4 72 16 105/57 (73) 98 06/30/17 08:32 97.5 82 18 124/76 (92) 98 06/30/17 03:29 97.5 85 17 106/69 (81) 100 06/29/17 23:34 97.5 70 14 110/67 (81) 06/29/17 19:19 98.3 97 16 115/70 (85) 96 06/29/17 16:00 98.6 73 18 117/85 (96) 100 06/29/17 15:35 73 06/29/17 13:04 97.2 86 18 118/72 (87) 84 Result Diagram: 06/30/17 0518 06/30/17 0518 Imaging Last Impressions Chest X-Ray 06/28/17 1904 Signed Impressions: Service Date/Time: Wednesday, June 28, 2017 19:17 - CONCLUSION: No acute disease. Valente Mata MD Abdomen/Pelvis CT 06/28/17 0000 Signed Impressions: Service Date/Time: Wednesday, June 28, 2017 20:54 - CONCLUSION: Abdominal aortic aneurysm and diffuse atherosclerosis. Anasarca. Valente Mata MD Objective Remarks GENERAL: Awake alert and oriented SKIN: Warm and dry. CARDIOVASCULAR: Regular rate and rhythm. S1-S2 no S3 or S4 RESPIRATORY: No accessory muscle use. Clear to auscultation. Breath sounds equal bilaterally. GASTROINTESTINAL: Abdomen soft, non-tender, nondistended. MUSCULOSKELETAL: Extremities without clubbing, cyanosis, +1-2 lower extremity edema chronic. No obvious deformities. NEUROLOGICAL: Awake and alert. No obvious cranial nerve deficits. Motor grossly within normal limits. Five out of 5 muscle strength in the arms and legs. Normal speech. Procedures none A/P Problem List: (1) Abdominal pain ICD Code: R10.9 - Unspecified abdominal pain Status: Acute (2) Elevated troponin ICD Code: R74.8 - Abnormal levels of other serum enzymes (3) Dysrhythmia ICD Code: I49.9 - Cardiac arrhythmia, unspecified Status: Acute (4) CHF (congestive heart failure) ICD Code: I50.9 - CHF (congestive heart failure) Status: Acute Assessment and Plan 1. Abdominal Pain: reports ongoing epigastric pain after meals, Lipase normal , LFTs normal, CT Abd/Pelvis w/ AAA 4.1cm, previously 3.7cm on CT from 11/25/16, images reviewed by me, outpatient follow up for monitoring. Pepcid, GI cocktail w/ lidocaine. Regular bowel movement. Negative UA. Continue to monitor 2. Elevated Trop: c/o chest pain w/ episodes of abdominal pain. Continue ASA , Statin, B-alonso. NTG prn. Follows w/ Dr. García, will consult. CXR w/ no acute findings, images reviewed by me. Troponins remained flat 3. Dysrhythmia: Episodes of NSR alternating w/ Sinus Tach while in ER during episodes of abdominal pain, tachycardia likely related to pain complaints. HR currently 80's. Place on telemetry. 4. CHF: Acute on Chronic. Echo 04/25/16 w/ EF 15-20%, BNP 1608, CXR w/ no acute findings. Lasix 40mg IV bid, monitor I/O. Continue MARIO inhibitor and beta-alonso status post AICD. Consider entresto 5. DVT Prophylaxis: Heparin sq PT has signed off Problem Qualifiers (1) Dysrhythmia: Qualified Codes: I49.9 - Cardiac arrhythmia, unspecified (2) CHF (congestive heart failure): Qualified Codes: I50.9 - Heart failure, unspecified Rusty Bailey MD Jun 30, 2017 12:33
[2017-06-30] MEDS: FLUTICASONE 100 MCG/VILANTEROL 25 MCG INHALER INH SCH (14:14)
[2017-06-30] MEDS ORDERED: PRED.125%O LEFT EYE (14:29)
[2017-06-30] MEDS ORDERED: OCUF0.3D LEFT EYE ×2 (14:33)
[2017-06-30 15:47] VITALS: BP 107/62; PULSE 78; RESP 16; TEMP 97.4; O2SAT 98
--- NOTE | 2017-06-30 16:08 | MB ---
cc: Anton Sanchez MD DATE OF CONSULT: 06/30/2017 REASON FOR CONSULTATION: Congestive heart failure, abnormal troponin level. HISTORY OF PRESENT ILLNESS: The patient is somewhat of a vague historian. She is a 77-year-old -[place] female followed in our office by Dr. Jered García, with a history of presumably non-ischemic cardiomyopathy, ejection fraction 15% to 20% by echocardiogram 04/25/2016, history of AICD implant, diabetes, paroxysmal supraventricular tachycardia who came to the emergency room apparently with complaints of dyspnea and some epigastric discomfort. She states she has been mildly to moderately dyspneic for about 3 days. She also describes vaguely a sensation of inability to belch in the last 2 days. Occasionally she experiences lightheadedness without syncope or near-syncope. She denies any AICD shocks, palpitations, paroxysmal nocturnal dyspnea. Recently she also reports increased pedal edema. The patient states she has not taken her medications in about a month. For the most part, she is sedentary. She denies any recent flu symptoms. Since coming into the hospital, her dyspnea has improved and her epigastric discomfort has resolved. PAST MEDICAL HISTORY: 1. Severe presumably non-ischemic cardiomyopathy with ejection fraction of 15% to 20% by echocardiogram 04/25/2016. She had a heart catheterization 2005 showing normal coronary arteries. 2. History of [employer] single-chamber AICD implant 04/11/2016. An electrophysiology study was negative for ventricular tachyarrhythmias at that time. 3. COPD. 4. Diabetes. 5. Hypertension. 6. Paroxysmal supraventricular tachycardia. 7. Nonsustained ventricular tachycardia. 8. Hyperlipidemia. CARDIAC MEDICATIONS AT HOME: 1. Aspirin 81 mg daily. 2. Klor-Con 10 mEq b.i.d. 3. Furosemide 40 mg b.i.d. 4. Spironolactone 25 mg daily. 5. Lisinopril 20 mg b.i.d. 6. Zocor 40 mg at bedtime. 7. Carvedilol 6.25 mg b.i.d. ALLERGIES: MORPHINE. FAMILY HISTORY: Noncontributory. SOCIAL HISTORY: The patient is a former smoker. She denies alcohol abuse. REVIEW OF SYSTEMS: As in the history of present illness, otherwise negative or noncontributory. She also denies headache, melena, bright red blood per rectum, fevers. PHYSICAL EXAMINATION: VITAL SIGNS: Her blood pressure 105/57 with a pulse of 72, respirations 16. GENERAL: She is a well-developed, well-nourished, -[place] female in no acute distress. HEENT: Jugular venous pressure is seen to the mandible. Carotid pulses are 2+ bilaterally and without bruits. CHEST: Reveals a few bibasilar crackles. CARDIAC: She has a regular rhythm and rate without S3, S4 or murmur. ABDOMEN: She has a soft, nontender abdomen. Bowel sounds are present. There is no definite hepatosplenomegaly. EXTREMITIES: Reveals no clubbing or cyanosis. There is 1+ pretibial edema bilaterally. LABORATORY DATA: Included WBC of 2.8, hemoglobin 12.9, platelets 116,000. Potassium 3.2, BUN of 10, creatinine 0.86, CK of 126. Troponin 0.09. Chest x-ray shows no acute disease. EKG shows sinus tachycardia with 1st degree AV block possibly with a run of atrial tachycardia at the end of the rhythm strip, left ventricular hypertrophy, left axis deviation, poor R-wave progression. IMPRESSION: Slightly abnormal troponin level, possible congestive heart failure in a 77-year-old -[place] female with a history of severe dilated cardiomyopathy, ejection fraction 15% to 20% by echocardiogram 2016, history of automated implantable cardioverter defibrillator implant, diabetes, chronic obstructive pulmonary disease, paroxysmal supraventricular tachycardia, nonsustained ventricular tachycardia. The patient symptomatically has improved since admission. Overall, there is no definite evidence for acute coronary syndrome. I doubt the slightly elevated troponin levels are due to acute myocardial ischemia or infarction. CK is negative for myocardial infarction. The slight elevation in troponin may be due to congestive heart failure. From what I can gather, the patient states she has not taken her medications possibly in a month. RECOMMENDATIONS: 1. Agree with intravenous Lasix diuresis. 2. Continue her usual home cardiac medications. 3. I have stressed to the patient the utter importance of compliance with taking medications. 4. Check a 2D echocardiogram to reassess her left ventricular function. MD OLIVIA Sanchez/HALEY , 03:14 PM , 04:06 PM ANA LUISA
[2017-06-30 16:25] LABS: HEMOGLOBIN A1C 6.2 % (4.3-6.0)
[2017-06-30 19:26] VITALS: BP 116/73; PULSE 84; RESP 20; TEMP 96.8; O2SAT 98
[2017-06-30] MEDS: PRAVASTATIN SOD 40 MG TAB PO SCH (20:53)
[2017-06-30 23:26] VITALS: BP 95/57; PULSE 72; RESP 16; TEMP 97.7; O2SAT 100
[2017-07-01 03:36] VITALS: PULSE 66
[2017-07-01 03:46] VITALS: BP 109/66; PULSE 90; RESP 16; TEMP 97.5; O2SAT 99
[2017-07-01] MEDS: PREDNISOLONE ACETATE 0.12% LEFT EYE SCH ×3 (06:27→18:07)
[2017-07-01] MEDS: OFLOXACIN 0.3% OPTH SOLN 5 ML BTL LEFT EYE SCH ×3 (06:27→18:07)
[2017-07-01 07:30] VITALS: BP 107/62; PULSE 79; RESP 18; TEMP 97.9; O2SAT 98
[2017-07-01 08:00] VITALS: PULSE 83
--- NOTE | 2017-07-01 08:15 | PD.CARD.PN ---
Subjective Subjective Remarks Somnolent. Denies dyspnea, CP, dizziness, PND, palpitations. Objective Medications Item Value Date Time Pravastatin Sodium 80 mg 06/29/172099 (Pravachol) HS/PO 06/30/172052 Lisinopril 20 mg 06/29/172099 (Prinivil) BID/PO 06/30/172052 Potassium Chloride 10 meq 06/29/172099 (KCl) BID/PO 06/30/172051 Furosemide 40 mg 06/29/17899 (Lasix Inj) BID@/IV PUSH 06/30/171814 Heparin Sodium 5,000 units 06/29/17899 (Porcine) Q12H/SQ 06/30/172051 (Heparin Inj) Aspirin 81 mg 06/29/17899 (Ecotrin Ec) DAILY/PO 06/30/17942 Carvedilol 6.25 mg 06/29/17899 (Coreg) BID/PO 06/30/172051 Spironolactone 25 mg 06/29/17899 (Aldactone) DAILY/PO 06/30/17947 Current Medications Medications (Trade) Dose Ordered Sig/Shamir Route Start Time Stop Time Status Last Admin (Lasix Inj) 40 mg BID@ IV PUSH 06/29/17 09:00 06/30/17 18:15 (NS Flush) 2 ml UNSCH PRN IV FLUSH 06/28/17 22:00 (NS Flush) 2 ml BID IV FLUSH 06/29/17 09:00 06/30/17 20:56 (Zofran Inj) 4 mg Q6H PRN IVP 06/28/17 22:00 (Heparin Inj) 5,000 units Q12H SQ 06/29/17 09:00 06/30/17 20:52 (Tylenol) 650 mg Q6H PRN PO 06/28/17 22:00 (Malden 5-325 Mg) 1 tab Q4H PRN PO 06/28/17 22:00 (Malden 10-325 Mg) 1 tab Q4H PRN PO 06/28/17 22:00 (Bobbi-Colace) 1 tab BID PO 06/29/17 09:00 06/30/17 20:52 (Milk Of Magnesia Liq) 30 ml Q12H PRN PO 06/28/17 22:00 (Senokot) 17.2 mg Q12H PRN PO 06/28/17 22:00 (Dulcolax Supp) 10 mg DAILY PRN RECTAL 06/28/17 22:00 (Lactulose Liq) 30 ml DAILY PRN PO 06/28/17 22:00 (Ecotrin Ec) 81 mg DAILY PO 06/29/17 09:00 06/30/17 09:43 (Coreg) 6.25 mg BID PO 06/29/17 09:00 06/30/17 20:52 (Breo Ellipta 100-25 Inh) 1 puff DAILY INH 06/29/17 09:00 06/30/17 14:14 (Aldactone) 25 mg DAILY PO 06/29/17 09:00 06/30/17 09:48 (Pravachol) 80 mg HS PO 06/29/17 21:00 06/30/17 20:53 ( Liq) 10 ml Q6H PRN PO 06/28/17 23:00 (Mag-Al Plus Susp Liq) 30 ml Q6H PRN PO 06/28/17 23:00 (Xylocaine 2% Viscous) 15 ml Q6H PRN SWISH-SWAL 06/28/17 23:00 (Ocuflox 0.3% Opth Soln) 1 drop Q6HR LEFT EYE 06/29/17 00:00 07/01/17 06:27 (Pred Mild 0.12% Opth Susp) 1 drop Q6H LEFT EYE 06/28/17 23:30 07/01/17 06:27 (Prinivil) 20 mg BID PO 06/29/17 21:00 06/30/17 20:53 (KCl) 10 meq BID PO 06/29/17 21:00 06/30/17 20:52 (Duoneb Neb) 1 ampule Q4HR NEB PRN NEB 06/29/17 10:45 (Pepcid) 20 mg BID PO 06/30/17 09:00 06/30/17 20:52 Vital Signs / I&O Vital Signs Date Time Temp Pulse Resp B/P (MAP) Pulse Ox O2 Delivery O2 Flow Rate FiO2 07/01/17 07:30 97.9 79 18 107/62 (77) 98 07/01/17 03:46 97.5 90 16 109/66 (80) 99 07/01/17 03:36 66 06/30/17 23:26 97.7 72 16 95/57 (70) 100 06/30/17 19:26 96.8 84 20 116/73 (87) 98 06/30/17 15:47 97.4 78 16 107/62 (77) 98 06/30/17 11:03 97.4 72 16 105/57 (73) 98 06/30/17 08:32 97.5 82 18 124/76 (92) 98 I/O 06/30/17 06/30/17 06/30/17 07/01/17 07/01/17 07/01/17 07:00 15:00 23:00 07:00 15:00 23:00 Intake Total 800 ml 500 ml Balance 800 ml 500 ml Intake Oral 800 ml 500 ml # Voids 1 2 2 Physical Exam GENERAL: Well developed, well nourished. No acute distress. HEENT: Jugular venous pressure 10 cm water. CHEST: Lungs clear to auscultation bilaterally. Unlabored respiratory effort. CARDIAC: Regular rate and rhythm without S3, S4. I/ systolic murmur along left sternal border. ABDOMEN: Soft, nontender, no hepatosplenomegaly. Bowel sounds present. EXTREMITIES: No clubbing, cyanosis. 1+ pretibial edema. Assessment and Plan Problem List: (1) CHF (congestive heart failure) ICD Codes: I50.9 - CHF (congestive heart failure) Status: Acute Plan: Stable overnight. I's, O's incomplete. Patient asymptomatic this morning. Echo pending. Suspect medication noncompliance had contributed to exacerbation of fluid retention. REC continued IV furosemide diuresis, consider discharge later today or tomorrow continue beta alonso, MARIO-I, spironolactone will f/u as needed (2) Elevated troponin ICD Codes: R74.8 - Abnormal levels of other serum enzymes Status: Acute Plan: Minimally elevated and flat troponin levels. Doubt due to ACS. Possibly due to CHF. Rec no additional evaluation at this time. (3) Paroxysmal supraventricular tachycardia ICD Codes: I47.1 - Supraventricular tachycardia Status: Chronic Plan: Stable. Monitor via ICD checks. Continue beta alonso therapy. (4) Cardiomyopathy ICD Codes: I42.9 - Cardiomyopathy, unspecified Plan: Echo pending. EF severely reduced 15-20% on last echo 03/2016. May have significant tricuspid regurgitation by exam as well. Continue comprehensive medical regimen. (5) Nonsustained ventricular tachycardia ICD Codes: I47.2 - Ventricular tachycardia Status: Chronic Plan: Stable. Monitor via ICD checks. Continue beta alonso therapy. Code Status full code Discussed Condition With patient Problem Qualifiers (1) CHF (congestive heart failure): Qualified Codes: I50.9 - Heart failure, unspecified (2) Cardiomyopathy: Qualified Codes: I42.0 - Dilated cardiomyopathy Anton Sanchez MD Jul 01, 2017 08:15
[2017-07-01] MEDS: SODIUM CHLORIDE 0.9% FLUSH 10 ML FLUSH IV FLUSH SCH (09:00)
[2017-07-01] MEDS: POTASSIUM CHLORIDE 10 MEQ CONTROLLED RELEASE TAB PO SCH (10:04)
[2017-07-01] MEDS: FAMOTIDINE 20 MG TAB PO SCH (10:04)
[2017-07-01] MEDS: SPIRONOLACTONE 25 MG TAB PO SCH (10:04)
[2017-07-01] MEDS: DOCUSATE SODIUM 50 MG/SENNA 8.6 MG TAB PO SCH (10:04)
[2017-07-01] MEDS: CARVEDILOL 6.25 MG TAB PO SCH (10:05)
[2017-07-01] MEDS: ASPIRIN EC 81 MG TABEC PO SCH (10:05)
[2017-07-01] MEDS: FLUTICASONE 100 MCG/VILANTEROL 25 MCG INHALER INH SCH (10:06)
[2017-07-01] MEDS: FUROSEMIDE 40 MG/4 ML VIAL IV PUSH SCH ×2 (10:06→18:04)
[2017-07-01] MEDS: HEPARIN SODIUM - SQ 10,000 UNITS/ML VIAL SQ SCH (10:08)
--- NOTE | 2017-07-01 10:08 | HHI.DCPOC ---
Discharge Care Plan Diagnosis: (1) CHF (congestive heart failure) (2) Hypertension (3) Hyperlipidemia (4) Cardiomyopathy Goals to Promote Your Health * To prevent worsening of your condition and complications * To maintain your health at the optimal level Directions to Meet Your Goals Take your medications as prescribed Follow your dietary instruction Follow activity as directed Keep your appointments as scheduled Take your immunizations and boosters as scheduled If your symptoms worsen call your PCP, if no PCP go to Urgent Care Center or Emergency Room Smoking is Dangerous to Your Health. Avoid second hand smoke Call the 24-hour hour crisis hotline for domestic abuse at Mili Arshad PA-C Jul 01, 2017 10:08 am
[2017-07-01] MEDS: LISINOPRIL 20 MG TAB PO SCH (10:12)
[2017-07-01 13:01] VITALS: BP 96/61; PULSE 68; RESP 16; TEMP 97.6; O2SAT 100
--- NOTE | 2017-07-01 13:51 | HHI.PR ---
Subjective Remarks Follow-up heart failure. She is improving with less shortness of breath. Uses 2 L nasal cannula at home. States she was not taking her cardiac meds for 1 month after her family accidentally threw them out Objective Vitals Vital Signs Date Time Temp Pulse Resp B/P (MAP) Pulse Ox O2 Delivery O2 Flow Rate FiO2 07/01/17 13:01 97.6 68 16 96/61 (73) 100 07/01/17 07:30 97.9 79 18 107/62 (77) 98 07/01/17 03:46 97.5 90 16 109/66 (80) 99 07/01/17 03:36 66 06/30/17 23:26 97.7 72 16 95/57 (70) 100 06/30/17 19:26 96.8 84 20 116/73 (87) 98 06/30/17 15:47 97.4 78 16 107/62 (77) 98 I/O 06/30/17 06/30/17 06/30/17 07/01/17 07/01/17 07/01/17 07:00 15:00 23:00 07:00 15:00 23:00 Intake Total 800 ml 500 ml Balance 800 ml 500 ml Intake Oral 800 ml 500 ml # Voids 1 2 2 Result Diagram: 06/30/17 0518 06/30/17 0518 Imaging Last Impressions Chest X-Ray 06/28/17 1904 Signed Impressions: Service Date/Time: Wednesday, June 28, 2017 19:17 - CONCLUSION: No acute disease. Valente Mata MD Abdomen/Pelvis CT 06/28/17 0000 Signed Impressions: Service Date/Time: Wednesday, June 28, 2017 20:54 - CONCLUSION: Abdominal aortic aneurysm and diffuse atherosclerosis. Anasarca. Valente Mata MD Objective Remarks GENERAL: Awake alert and oriented SKIN: Warm and dry. CARDIOVASCULAR: Regular rate and rhythm. S1-S2 no S3 or S4 RESPIRATORY: No accessory muscle use. Clear to auscultation. Breath sounds equal bilaterally. GASTROINTESTINAL: Abdomen soft, non-tender, nondistended. MUSCULOSKELETAL: Extremities without clubbing, cyanosis, +1-2 lower extremity edema chronic. No obvious deformities. NEUROLOGICAL: Awake and alert. No obvious cranial nerve deficits. Motor grossly within normal limits. Five out of 5 muscle strength in the arms and legs. Normal speech. Procedures none A/P Problem List: (1) Abdominal pain ICD Code: R10.9 - Unspecified abdominal pain Status: Acute (2) Elevated troponin ICD Code: R74.8 - Abnormal levels of other serum enzymes Status: Acute (3) Dysrhythmia ICD Code: I49.9 - Cardiac arrhythmia, unspecified Status: Acute (4) CHF (congestive heart failure) ICD Code: I50.9 - CHF (congestive heart failure) Status: Acute Assessment and Plan 1. Abdominal Pain: reports ongoing epigastric pain after meals, Lipase normal , LFTs normal, CT Abd/Pelvis w/ AAA 4.1cm, previously 3.7cm on CT from 11/25/16, images reviewed by me, outpatient follow up for monitoring. Pepcid, GI cocktail w/ lidocaine. Regular bowel movement. Negative UA. Continue to monitor 2. Elevated Trop: c/o chest pain w/ episodes of abdominal pain. Continue ASA , Statin, B-alonso. NTG prn. CXR w/ no acute findings, images reviewed by me. Troponins remained flat, likely secondary to CHF exacerbation 3. Dysrhythmia: Episodes of NSR alternating w/ Sinus Tach while in ER during episodes of abdominal pain, tachycardia likely related to pain complaints. HR currently [address]'s. Place on telemetry. 4. CHF: Acute on Chronic systolic. Echo shows EF less than 20% and grade 1 diastolic dysfunction, BNP 1608, CXR w/ no acute findings. Continue diuresis with Lasix, MARIO inhibitor and beta-alonso status post AICD. Consider entresto 5. DVT Prophylaxis: Heparin sq Stable for discharge Problem Qualifiers (1) Dysrhythmia: Qualified Codes: I49.9 - Cardiac arrhythmia, unspecified (2) CHF (congestive heart failure): Qualified Codes: I50.9 - Heart failure, unspecified Rusty Bailey MD Jul 01, 2017 13:51
[2017-07-01 14:13] VITALS: BP 103/64; PULSE 71; RESP 18; TEMP 97.8; O2SAT 96
--- NOTE | 2017-07-01 16:16 | ECHRPT ---
Indication: CARDIOMYOPATHY CONCLUSIONS The left ventricular systolic function is severely reduced with an estimated ejection fraction less than 20%. Moderately dilated left ventricle. Doppler parameters are consistent with impaired left ventricular relaxtion (grade 1 diastolic dysfun ction). Mild mitral valve regurgitation. [id number] aortic valve regurgitation. There is moderate tricuspid regurgitation. Mild pulmonary valve regurgitation. BP: / HR: Rhythm: Sinus MEASUREMENTS (Male / Female) Normal Values Technical Quality:Good 2D ECHO LV Diastolic Diameter PLAX 6.1 cm 4.2 - 5.9 / 3.9 - 5.3 cm LV Systolic Diameter PLAX 5.5 cm IVS Diastolic Thickness 1.1 cm 0.6 - 1.0 / 0.6 - 0.9 cm LVPW Diastolic Thickness 1.1 cm 0.6 - 1.0 / 0.6 - 0.9 cm LV Relative Wall Thickness 0.4 RV Internal Dim ED PLAX 3.6 cm LVOT Diameter 2.0 cm LA Systolic Diameter LX 4.0 cm 3.0 - 4.0 / 2.7 - 3.8 cm LV Ejection Fraction MOD 4C 19.5 % LV Ejection Fraction 4C AL 24.9 % M-MODE LV Diastolic Diameter MM 5.5 cm 4.2 - 5.9 / 3.9 - 5.3 cm LV Systolic Diameter MM 5.0 cm LV Ejection Fraction MM Teich 21.0 % IVS Diastolic Thickness MM 1.1 cm 0.6 - 1.0 / 0.6 - 0.9 cm LVPW Diastolic Thickness MM 1.1 cm 0.6 - 1.0 / 0.6 - 0.9 cm LV Relative Wall Thickness MM 0.4 0.24 - 0.42 / 0.22 - 0.42 LV Mass Index MM 138.5 g/m 49 - 115 / 43 - 95 g/m Aortic Root Diameter MM 2.2 cm LA Systolic Diameter MM 4.0 cm LA Ao Ratio MM 1.8 AV Cusp Separation MM 1.3 cm DOPPLER AV Peak Velocity 138.0 cm/s AV Peak Gradient 7.6 mmHg AI Peak Velocity 372.5 cm/s AI Peak Gradient 55.5 mmHg AI Pressure Half Time 432.0 ms LVOT Peak Velocity 106.0 cm/s LVOT Peak Gradient 4.5 mmHg AV Area Cont Eq pk 2.4 cm MV Area PHT 4.6 cm Mitral E Point Velocity 51.8 cm/s Mitral A Point Velocity 74.5 cm/s Mitral E to A Ratio 0.7 LV E' Lateral Velocity 8.6 cm/s Mitral E to LV E' Lateral Ratio 6.0 LV E' Septal Velocity 2.8 cm/s Mitral E to LV E' Septal Ratio 18.4 TR Peak Velocity 261.0 cm/s TR Peak Gradient 27.2 mmHg Right Atrial Pressure 10.0 mmHg Pulmonary Artery Systolic Pressu 37.2 mmHg Right Ventricular Systolic Press 37.2 mmHg PV Peak Velocity 85.5 cm/s PV Peak Gradient 2.9 mmHg FINDINGS LEFT VENTRICLE The left ventricular systolic function is severely reduced with an estimated ejection fraction less than 20%. Moderately dilated left ventricle. Wall thickness is measured at the upper limits of normal. There is global left ventricular dysfunction. Doppler parameters are consistent with impaired left ventricular relaxtion (grade 1 diastolic dysfun ction). RIGHT VENTRICLE The right ventricle is mildly dilated. A pacemaker wire is noted. LEFT ATRIUM The left atrial size is mildly dilated. RIGHT ATRIUM The right atrial size is moderately dilated. There is a pacemaker wire present in the right atrial cavity. ATRIAL SEPTUM Normal atrial septal thickness AORTA The aortic root and proximal ascending aorta are normal in size on limited imaging. MITRAL VALVE Structurally normal mitral valve. Mild mitral valve regurgitation. No mitral valve stenosis. AORTIC VALVE Trileaflet aortic valve. Diffuse calcification of the aortic valve. [id number] aortic valve regurgitation. No aortic valve stenosis. TRICUSPID VALVE There is moderate tricuspid regurgitation. The estimated pulmonary arterial pressure is 37.2 mmHg. No tricuspid valve stenosis. PULMONARY VALVE Mild pulmonary valve regurgitation. VESSELS The inferior vena cava is dilated. There is less than 50% respiratory change in dimension of the inferior vena cava (abnormal). PERICARDIUM No pericardial effusion. Sarath Lyn DO (Electronically Signed) Final Date:01 July 2017 16:15
--- NOTE | 2017-07-01 16:43 | HHI.DS ---
Discharge Summary Admission Date Jun 28, 2017 at 21:45 Discharge Date: Jul 01, 2017 Admitting Diagnosis CHF, elevated trop, dysrrhythmia (1) Abdominal pain ICD Code: R10.9 - Unspecified abdominal pain Diagnosis: Principal Status: Acute (2) Elevated troponin ICD Code: R74.8 - Abnormal levels of other serum enzymes Diagnosis: Principal Status: Acute (3) Dysrhythmia ICD Code: I49.9 - Cardiac arrhythmia, unspecified Diagnosis: Principal Status: Acute (4) CHF (congestive heart failure) ICD Code: I50.9 - CHF (congestive heart failure) Diagnosis: Principal Status: Acute Procedures none Brief History - From Admission This is a 77-year-old female with a PMH of HTN, Hyperlipidemia, COPD, O2 Dependent, CHF (Echo 04/25/16 w/ EF 15-20%, AAA and Anxiety who presented to the ER w/ complaints of SOB and epigastric pain. Pt is very poor historian, unable to give specifics. States she was seen in [employer], Dr. García on 06/25/17 w/ normal work up, but states she didn't mention the pain at that time. Reports epigastric pain/distention usually after meals. Pain is intermittent, 8/10, non-radiating. Notes associated SOB and chest pain. On arrival, BP 128/80, HR 135, O2 sat 94% on 3L NC. While in ER, patient noted to have episodes of sinus tachycardia. CBC at baseline. Chemistry essentially unremarkable. Troponin 0.09. BNP 1608. INR 1.4. CXR with no acute findings. CT Abdomen/Pelvis abdominal aortic aneurysm 4.1 cm. CBC/BMP: 06/30/17 0518 06/30/17 0518 Significant Findings Laboratory Tests Test 06/28/17 19:45 06/29/17 00:15 06/29/17 05:06 06/29/17 12:03 Platelet Count 139 TH/MM3 (150-450) 116 TH/MM3 (150-450) Monocytes (%) (Auto) 14.2 % (0.0-8.0) 17.1 % (0.0-8.0) Lymphocytes # (Auto) 0.7 TH/MM3 (1.0-4.8) Prothrombin Time 14.6 SEC (9.8-11.6) Total Bilirubin 1.4 MG/DL (0.2-1.0) 1.2 MG/DL (0.2-1.0) Chloride Level 95 MEQ/L (98-107) 96 MEQ/L (98-107) Carbon Dioxide Level 33.0 MEQ/L (21.0-32.0) 33.0 MEQ/L (21.0-32.0) Estimat Glomerular Filtration Rate 72 ML/MIN (>89) 86 ML/MIN (>89) Troponin I 0.09 NG/ML (0.02-0.05) 0.09 NG/ML (0.02-0.05) 0.09 NG/ML (0.02-0.05) B-Type Natriuretic Peptide 1608 PG/ML (0-100) White Blood Count 3.3 TH/MM3 (4.0-11.0) Mean Platelet Volume 11.2 FL (7.0-11.0) Neutrophils # (Auto) 1.7 TH/MM3 (1.8-7.7) Urine Occult Blood TRACE (NEG) Test 06/30/17 05:18 White Blood Count 2.8 TH/MM3 (4.0-11.0) Platelet Count 116 TH/MM3 (150-450) Monocytes (%) (Auto) 19.1 % (0.0-8.0) Eosinophils (%) (Auto) 4.1 % (0.0-4.0) Neutrophils # (Auto) 1.2 TH/MM3 (1.8-7.7) Lymphocytes # (Auto) 0.9 TH/MM3 (1.0-4.8) Potassium Level 3.2 MEQ/L (3.5-5.1) Chloride Level 93 MEQ/L (98-107) Carbon Dioxide Level 37.5 MEQ/L (21.0-32.0) Estimat Glomerular Filtration Rate 78 ML/MIN (>89) Hemoglobin A1c 6.2 % (4.3-6.0) Imaging Last Impressions Chest X-Ray 06/28/17 [id number] Signed Impressions: Service Date/Time: Wednesday, June 28, 2017 19:17 - CONCLUSION: No acute disease. Valente Mata MD Abdomen/Pelvis CT 06/28/17 0000 Signed Impressions: Service Date/Time: Wednesday, June 28, 2017 20:54 - CONCLUSION: Abdominal aortic aneurysm and diffuse atherosclerosis. Anasarca. Valente Mata MD PE at Discharge GENERAL: Awake alert and oriented SKIN: Warm and dry. CARDIOVASCULAR: Regular rate and rhythm. S1-S2 no S3 or S4 RESPIRATORY: No accessory muscle use. Clear to auscultation. Breath sounds equal bilaterally. GASTROINTESTINAL: Abdomen soft, non-tender, nondistended. MUSCULOSKELETAL: Extremities without clubbing, cyanosis, +1-2 lower extremity edema chronic. No obvious deformities. NEUROLOGICAL: Awake and alert. No obvious cranial nerve deficits. Motor grossly within normal limits. Five out of 5 muscle strength in the arms and legs. Normal speech. Hospital Course 1. Abdominal Pain: reports ongoing epigastric pain after meals, Lipase normal , LFTs normal, CT Abd/Pelvis w/ AAA 4.1cm, previously 3.7cm on CT from 11/25/16, images reviewed by me, outpatient follow up for monitoring. Pepcid, GI cocktail w/ lidocaine. Regular bowel movement. Negative UA. Continue to monitor 2. Elevated Trop: c/o chest pain w/ episodes of abdominal pain. Continue ASA , Statin, B-alonso. NTG prn. CXR w/ no acute findings, images reviewed by me. Troponins remained flat, likely secondary to CHF exacerbation 3. Dysrhythmia: Episodes of NSR alternating w/ Sinus Tach while in ER during episodes of abdominal pain, tachycardia likely related to pain complaints. HR currently 80's. Place on telemetry. 4. CHF: Acute on Chronic systolic. Echo shows EF less than 20% and grade 1 diastolic dysfunction, BNP 1608, CXR w/ no acute findings. Continue diuresis with Lasix, MARIO inhibitor and beta-alonso status post AICD. Consider entresto. Counseled regarding compliance 5. DVT Prophylaxis: Heparin sq Stable for discharge Pt Condition on Discharge: Stable Discharge Disposition: Disch w/ Home Health Serv Discharge Time: > 30 minutes Discharge Instructions DIET: Follow Instructions for: Heart Healthy Diet Activities you can perform: Regular-No Restrictions Follow up Referrals: Cardiology - 1 Week with Jered García MD PCP Follow-up - 2-3 Days with Abeba Ramirez MD Continued Medications: Albuterol Neb (Albuterol Neb) 2.5 Mg/3 Ml Neb 2.5 MG NEB QID for Shortness Of Breath, #1 NEBULE [address] (Aspirin EC) 81 Mg Tabdr 81 MG PO DAILY for heart disease, #30 TAB 0 Refills Carvedilol (Coreg) 6.25 Mg Tab 6.25 MG PO BID, #60 TAB 0 Refills Fluticasone-Vilanterol Inh (Breo Ellipta Inh) 100-25 Mcg/Act Inh 1 PUFF INH DAILY, #1 INHALER 0 Refills Use daily at the same time. Furosemide (Furosemide) 40 Mg Tab 40 MG PO BID for CHF, #60 TAB 0 Refills Lisinopril (Lisinopril) 20 Mg Tab 20 MG PO BID, #30 TAB 0 Refills Ofloxacin Opth Drops (Ocuflox Opth Drops) 0.3 % Drops 1 DROP LEFT EYE Q6HR for Infection, #1 BOTTLE 0 Refills Potassium Chloride ER (Klor-Con 10) 10 Meq Tab 10 MEQ PO BID for Electrolyte Replacement, #60 TAB 0 Refills Prednisolone Acetate Opth 0.12% (Pred Mild Opth 0.12%) 0.12% Susp 1 DROP LEFT EYE Q6HR for Inflammation, #1 BOTTLE 0 Refills Simvastatin (Zocor) 40 Mg Tab 40 MG PO HS for Cholesterol Management, #30 TAB 0 Refills Spironolactone (Spironolactone) 25 Mg Tab 25 MG PO DAILY, #30 TAB 0 Refills Discontinued Medications: Metoprolol Succinate ER 24 HR (Metoprolol Succinate ER 24 HR) 25 Mg Tab 25 MG PO DAILY, #30 TAB 0 Refills Prednisone (Prednisone) 50 Mg Tab 50 MG PO DAILY for rib pain with breathing, #5 TAB 0 Refills Rusty Bailey MD Jul 01, 2017 16:42
--- NOTE | 2017-07-01 17:21 | HHI.FF ---
Face to Face Verification Diagnosis: (1) SOB (shortness of breath) (2) Cardiomyopathy (3) CHF (congestive heart failure) (4) Hyperlipidemia (5) Hypertension (6) Elevated troponin I level (7) GERD (gastroesophageal reflux disease) Home Health Nursing Order: Medical education Signs/symptoms of disease process CHF education Nursing assessment with vital signs I have seen patient Kapil Chapa on 07/01/17. My clinical findings support the need for the requested home health care services because: Patient has SOB Deconditioned w/ increased weakness Limited ability to care for self Impaired cognition/judgement I certify that my clinical findings support that this patient is homebound because: Unsafe to leave home unassisted Unable to use public transportation Poor cardiac reserve Mili Arshad PA-C Jul 01, 2017 17:21
== END 2017-07-01 19:26 | disposition home or self-care (01) ==
LOC: NEPC 18:15 → NEDA 21:45 → NEPGCP 23:21
PROVIDERS: ADMIT Internal Medicine; ATTEND Internal Medicine
DX: I50.23 Acute on chronic systolic (congestive) heart failure (principal); I49.9 Cardiac arrhythmia, unspecified; I47.2 Ventricular tachycardia; I47.1 Supraventricular tachycardia; I11.0 Hypertensive heart disease with heart failure; I42.0 Dilated cardiomyopathy; I71.4 Abdominal aortic aneurysm, without rupture; R94.31 Abnormal electrocardiogram [ECG] [EKG]; J44.9 Chronic obstructive pulmonary disease, unspecified; E78.5 Hyperlipidemia, unspecified; E11.9 Type 2 diabetes mellitus without complications; Z99.81 Dependence on supplemental oxygen; Z95.810 Presence of automatic (implantable) cardiac defibrillator; Z90.710 Acquired absence of both cervix and uterus; Z86.73 Personal history of transient ischemic attack (TIA), and cerebral infarction without residual deficits; Z87.891 Personal history of nicotine dependence; Z79.82 Long term (current) use of aspirin
CPT/HCPCS: 71045; 74177; 80053; 81001; 82550; 82552; 82948; 83036; 83690; 83735; 83880; 84100; 84439; 84443; 84484; 85025; 85610; 85730; 93005; 93306; 96372; 96374; 96376; 97161; 99285; G0378; G8987; G8988; J1644; J1940; Q9967

== ENCOUNTER 2018-02-22 02:03 | Inpatient (IN) ==
[2018-02-22 03:27] LABS: Baso % (Auto) 0.8 % (0.0-2.0); Eos # (Auto) 0.1 th/mm3 (0.0-0.4); Eos % (Auto) 2.2 % (0.0-4.0); Hemoglobin 13.8 gm/dL (11.6-15.3); Lymph # (Auto) 1.1 th/mm3 (1.0-4.8); Lymph % (Auto) 34.8 % (9.0-44.0); Mean Corpuscular HGB Conc 32.1 % (32.0-36.0); Mean Corpuscular Hemoglobin 31.4 pg (27.0-34.0); Mean Corpuscular Volume 97.9 fL (80.0-100.0); Mean Platelet Volume 10.7 fL (7.0-11.0); Mono # (Auto) 0.4 th/mm3 (0.0-0.9); Neut # (Auto) 1.6 th/mm3 (1.8-7.7); Neut % (Auto) 49.2 % (16.0-70.0); Platelet Count 127 th/mm3 (150-450); Red Blood Count 4.39 mil/mm3 (4.00-5.30); Red Cell Distribution Width 14.3 % (11.6-17.2); White Blood Count 3.3 th/mm3 (4.0-11.0)
--- NOTE | 2018-02-22 03:32 | XR ---
EXAM DATE: 02/22/2018 3:13 AM EDT AGE/SEX: 77 years / Female INDICATIONS: Cold and flu symptoms. CLINICAL DATA: This is the patient's initial encounter. Patient reports that signs and symptoms have been present for 1 day and indicates a pain score of 0/10. MEDICAL/SURGICAL HISTORY: Chronic obstructive pulmonary disease. Congestive heart failure. Hy pertension. . Pacemaker. Colon resection. Hysterectomy. Appendectomy. COMPARISON: [facility] [place], 06/28/2017. . FINDINGS: Cardiomegaly stable from prior. There is new consolidation in the left lower lung with complete loss of delineation of the left hemidiaphragm. The right lung is clear. No evidence of mediastinal shift. Cardiac pacer device in place. CONCLUSION: Left lower lobe consolidation Electronically signed by: Abdoul Olea MD 02/22/2018 3:30 AM EDT
[2018-02-22] MEDS ORDERED: Azithromycin Inj 500 MG in Sodium Chlor 0.9% Inj 250 ML IV.SIG ONE (03:34)
--- NOTE | 2018-02-22 03:39 | ED ---
HPI General Chief complaint: Chest Pain Stated complaint: Cold,Flu Time Seen by Provider: 02/22/18 02:50 Source: patient Mode of arrival: ambulatory Limitations: other History of Present Illness HPI narrative: 77-year-old female who looks much older than her age came to the emergency room with history of cough, shortness of breath for past 1 day. Patient is also complaining of left-sided chest pain under her left breast with no radiation. Patient was tachycardic in triage. Rest of the vital signs are within acceptable limit. No aggravating or relieving symptoms identified. Patient is very hard to understand what she is talking given the fact that she has no teeth and articulation is suboptimal. Past medical history suggestive of congestive heart failure with an EF of 20%. Onset (ago): day(s) Location: chest Related Data Home Medications Medication Instructions Recorded Confirmed Klor-Con 10 10 meq PO BID 02/22/18 02/22/18 albuterol sulfate [Ventolin HFA] 2 puff QID PRN 02/22/18 02/22/18 carvedilol [Coreg] 6.25 mg PO DAILY 02/22/18 02/22/18 fluticasone-vilanterol [Breo 1 puff DAILY 02/22/18 02/22/18 Ellipta] furosemide 40 mg PO BID 02/22/18 02/22/18 levofloxacin 500 mg PO DAILY 02/22/18 02/22/18 lisinopril 20 mg PO BID 02/22/18 02/22/18 prednisone 5 mg PO DAILY 02/22/18 02/22/18 simvastatin 40 mg PO QPM 02/22/18 02/22/18 spironolactone 25 mg PO DAILY 02/22/18 02/22/18 Allergies Allergy/AdvReac Type Severity Reaction Status Date / Time morphine Allergy Intermediate Itching Verified 02/23/18 15:53 Review of Systems ROS: all other systems reviewed are negative Cardiovascular Reports chest pain Respiratory Reports cough and Reports dyspnea PMFSH Medical History Medical History Bronchitis (Acute) COPD (chronic obstructive pulmonary disease) (Acute) Diabetes type I (Acute) Diverticulitis (Acute) Pacemaker (Acute) Stroke (Acute) Family History Family History Brother No problems noted. Father Family estrangement Mother Cancer Social History Social History Substance History: No History of Abuse Second Hand Smoke Exposure: No Smoking Status: Former smoker Tobacco Type: Cigarettes How Often Do You Have a Drink Containing Alcohol: Monthly or less Recent Travel in [facility] within the Last 8 Weeks: No Recent Out of Country Travel within the Last 8 Weeks: No Immunization History Tetanus Immunization: <5 Years Exam Narrative Exam Narrative: GENERAL: Awake, alert, elderly, looks much older than her age SKIN: Focused skin assessment warm/dry. HEAD: Atraumatic. Normocephalic. EYES: Pupils equal and round. No scleral icterus. No injection or drainage. ENT: No nasal bleeding or discharge. Mucous membranes pink and moist. NECK: Trachea midline. No JVD. CARDIOVASCULAR: Regular rate and rhythm. No murmur appreciated. RESPIRATORY: No accessory muscle use. Left lower lobe crackles posteriorly GASTROINTESTINAL: Abdomen soft, non-tender, nondistended. Hepatic and splenic margins not palpable. MUSCULOSKELETAL: No obvious deformities. No clubbing. No cyanosis. No edema. NEUROLOGICAL: Awake and alert. No obvious cranial nerve deficits. Motor grossly within normal limits. Dysarthric speech. PSYCHIATRIC: Appropriate mood and affect; insight and judgment normal. Course Initial Documented Vital Signs Temperature 99.3 F 02/22/18 02:07 Pulse Rate 113 H 02/22/18 02:07 Respiratory Rate 16 02/22/18 02:07 Blood Pressure 153/88 H 02/22/18 02:07 Pulse Oximetry 96 02/22/18 02:07 Last Documented Vital Signs Temperature 98.0 F 02/25/18 15:00 Pulse Rate 80 02/25/18 20:40 Respiratory Rate 18 02/25/18 20:40 Blood Pressure 99/68 L 02/25/18 15:00 Pulse Oximetry 99 02/25/18 20:40 Medical Decision Making [facility] Narrative Medical decision making narrative: 4:02 AM patient has leukopenia which seems to be chronic. Chest x-ray has been read by the radiologist as left lower lobe infiltrate. Based on this and my clinical finding I have ordered IV Rocephin and IV Zithromax. Patient's troponin and BNP are elevated. Patient has history of elevated troponin and BNP probably from her cardiomyopathy, although this is higher than the past. She will require admission. I will give her a dose of Lasix and aspirin. Medical Screen Exam Complete: Yes Emergency Medical Condition: Yes Lab Data Result diagrams: 02/24/18 04:41 02/24/18 04:41 Lab Results 02/22/18 02/22/18 02/22/18 Range/Units 03:14 03:14 03:14 WBC 3.3 L (4.0-11.0) th/mm3 RBC 4.39 (4.00-5.30) mil/mm3 Hgb 13.8 (11.6-15.3) gm/dL Hct 43.0 (35.0-46.0) % MCV 97.9 (80.0-100.0) fL MCH 31.4 (27.0-34.0) pg MCHC 32.1 (32.0-36.0) % RDW 14.3 (11.6-17.2) % Plt Count 127 L (150-450) th/mm3 MPV 10.7 (7.0-11.0) fL Neut % (Auto) 49.2 (16.0-70.0) % Lymph % (Auto) 34.8 (9.0-44.0) % Leslie % (Auto) 13.0 H (0.0-8.0) % Eos % (Auto) 2.2 (0.0-4.0) % Baso % (Auto) 0.8 (0.0-2.0) % Neut # (Auto) 1.6 L (1.8-7.7) th/mm3 Lymph # (Auto) 1.1 (1.0-4.8) th/mm3 Leslie # (Auto) 0.4 (0.0-0.9) th/mm3 Eos # (Auto) 0.1 (0.0-0.4) th/mm3 Baso # (Auto) 0.0 (0.0-0.2) th/mm3 WBC Differential . Differential Comment Auto diff final Puncture Site Patient Temperature O2 Saturation (90-100) % ABG pH (7.380-7.420) ABG pCO2 (38-42) mmHg ABG pO2 (61-120) mmHg ABG HCO3 (22-26) mmol/L ABG O2 Content (12.0-20.0) Vol % ABG Base Excess (-2-2) mmol/L ABG Methemoglobin (0-2) % Momo Test Hemoglobin (12.0-16.0) G/DL Carboxyhemoglobin (0-4) % O2 Delivery Device Liter Flow L/M Critical Value Sodium 142 (136-145) meq/L Potassium 4.5 (3.5-5.1) meq/L Chloride 101 (98-107) meq/L Carbon Dioxide 37.6 H (21.0-32.0) meq/L Anion Gap 3 L (5-15) meq/L BUN 13 (7-18) mg/dL Creatinine 0.93 (0.50-1.00) mg/dL Estimated GFR 71 L (>89) mL/min POC Glucose (68-110) mg/dl Random Glucose 124 H (74-106) mg/dL Hemoglobin A1c (4.3-6.0) % Calcium 8.6 (8.5-10.1) mg/dL Phosphorus (2.5-4.9) mg/dL Magnesium (1.5-2.5) mg/dL Total Bilirubin 0.7 (0.2-1.0) mg/dL AST 56 H (15-37) U/L ALT 34 (10-53) U/L Alkaline Phosphatase 87 (45-117) U/L Troponin I 0.14 H (0.02-0.05) ng/mL B-Natriuretic Peptide 3406 H (0-100) pg/mL Total Protein 7.3 (6.4-8.2) g/dL Albumin 3.5 (3.4-5.0) g/dL TSH (0.358-3.740) uIU/mL Free T4 (0.76-1.46) ng/dL 02/22/18 02/22/18 02/22/18 Range/Units 05:21 08:21 12:07 WBC (4.0-11.0) th/mm3 RBC (4.00-5.30) mil/mm3 Hgb (11.6-15.3) gm/dL Hct (35.0-46.0) % MCV (80.0-100.0) fL MCH (27.0-34.0) pg MCHC (32.0-36.0) % RDW (11.6-17.2) % Plt Count (150-450) th/mm3 MPV (7.0-11.0) fL Neut % (Auto) (16.0-70.0) % Lymph % (Auto) (9.0-44.0) % Leslie % (Auto) (0.0-8.0) % Eos % (Auto) (0.0-4.0) % Baso % (Auto) (0.0-2.0) % Neut # (Auto) (1.8-7.7) th/mm3 Lymph # (Auto) (1.0-4.8) th/mm3 Leslie # (Auto) (0.0-0.9) th/mm3 Eos # (Auto) (0.0-0.4) th/mm3 Baso # (Auto) (0.0-0.2) th/mm3 WBC Differential Differential Comment Puncture Site Patient Temperature O2 Saturation (90-100) % ABG pH (7.380-7.420) ABG pCO2 (38-42) mmHg ABG pO2 (61-120) mmHg ABG HCO3 (22-26) mmol/L ABG O2 Content (12.0-20.0) Vol % ABG Base Excess (-2-2) mmol/L ABG Methemoglobin (0-2) % Momo Test Hemoglobin (12.0-16.0) G/DL Carboxyhemoglobin (0-4) % O2 Delivery Device Liter Flow L/M Critical Value Sodium (136-145) meq/L Potassium (3.5-5.1) meq/L Chloride (98-107) meq/L Carbon Dioxide (21.0-32.0) meq/L Anion Gap (5-15) meq/L BUN (7-18) mg/dL Creatinine (0.50-1.00) mg/dL Estimated GFR (>89) mL/min POC Glucose 102 113 H (68-110) mg/dl Random Glucose (74-106) mg/dL Hemoglobin A1c (4.3-6.0) % Calcium (8.5-10.1) mg/dL Phosphorus (2.5-4.9) mg/dL Magnesium (1.5-2.5) mg/dL Total Bilirubin (0.2-1.0) mg/dL AST (15-37) U/L ALT (10-53) U/L Alkaline Phosphatase (45-117) U/L Troponin I 0.14 H (0.02-0.05) ng/mL B-Natriuretic Peptide (0-100) pg/mL Total Protein (6.4-8.2) g/dL Albumin (3.4-5.0) g/dL TSH (0.358-3.740) uIU/mL Free T4 (0.76-1.46) ng/dL 02/22/18 02/22/18 02/22/18 Range/Units 12:09 18:01 19:51 WBC (4.0-11.0) th/mm3 RBC (4.00-5.30) mil/mm3 Hgb (11.6-15.3) gm/dL Hct (35.0-46.0) % MCV (80.0-100.0) fL MCH (27.0-34.0) pg MCHC (32.0-36.0) % RDW (11.6-17.2) % Plt Count (150-450) th/mm3 MPV (7.0-11.0) fL Neut % (Auto) (16.0-70.0) % Lymph % (Auto) (9.0-44.0) % Leslie % (Auto) (0.0-8.0) % Eos % (Auto) (0.0-4.0) % Baso % (Auto) (0.0-2.0) % Neut # (Auto) (1.8-7.7) th/mm3 Lymph # (Auto) (1.0-4.8) th/mm3 Leslie # (Auto) (0.0-0.9) th/mm3 Eos # (Auto) (0.0-0.4) th/mm3 Baso # (Auto) (0.0-0.2) th/mm3 WBC Differential Differential Comment Puncture Site Patient Temperature O2 Saturation (90-100) % ABG pH (7.380-7.420) ABG pCO2 (38-42) mmHg ABG pO2 (61-120) mmHg ABG HCO3 (22-26) mmol/L ABG O2 Content (12.0-20.0) Vol % ABG Base Excess (-2-2) mmol/L ABG Methemoglobin (0-2) % Momo Test Hemoglobin (12.0-16.0) G/DL Carboxyhemoglobin (0-4) % O2 Delivery Device Liter Flow L/M Critical Value Sodium (136-145) meq/L Potassium (3.5-5.1) meq/L Chloride (98-107) meq/L Carbon Dioxide (21.0-32.0) meq/L Anion Gap (5-15) meq/L BUN (7-18) mg/dL Creatinine (0.50-1.00) mg/dL Estimated GFR (>89) mL/min POC Glucose 97 132 H (68-110) mg/dl Random Glucose (74-106) mg/dL Hemoglobin A1c (4.3-6.0) % Calcium (8.5-10.1) mg/dL Phosphorus (2.5-4.9) mg/dL Magnesium (1.5-2.5) mg/dL Total Bilirubin (0.2-1.0) mg/dL AST (15-37) U/L ALT (10-53) U/L Alkaline Phosphatase (45-117) U/L Troponin I 0.14 H (0.02-0.05) ng/mL B-Natriuretic Peptide (0-100) pg/mL Total Protein (6.4-8.2) g/dL Albumin (3.4-5.0) g/dL TSH (0.358-3.740) uIU/mL Free T4 (0.76-1.46) ng/dL 02/22/18 02/22/18 02/23/18 Range/Units 21:45 22:14 04:52 WBC 4.5 (4.0-11.0) th/mm3 RBC 3.94 L (4.00-5.30) mil/mm3 Hgb 12.4 (11.6-15.3) gm/dL Hct 38.5 (35.0-46.0) % MCV 97.7 (80.0-100.0) fL MCH 31.5 (27.0-34.0) pg MCHC 32.2 (32.0-36.0) % RDW 14.4 (11.6-17.2) % Plt Count 108 L (150-450) th/mm3 MPV 11.5 H (7.0-11.0) fL Neut % (Auto) 70.6 H (16.0-70.0) % Lymph % (Auto) 17.4 (9.0-44.0) % Leslie % (Auto) 11.0 H (0.0-8.0) % Eos % (Auto) 0.2 (0.0-4.0) % Baso % (Auto) 0.8 (0.0-2.0) % Neut # (Auto) 3.2 (1.8-7.7) th/mm3 Lymph # (Auto) 0.8 L (1.0-4.8) th/mm3 Leslie # (Auto) 0.5 (0.0-0.9) th/mm3 Eos # (Auto) 0.0 (0.0-0.4) th/mm3 Baso # (Auto) 0.0 (0.0-0.2) th/mm3 WBC Differential . Differential Comment Auto diff final Puncture Site Right radial Patient Temperature 98.6 O2 Saturation 94 (90-100) % ABG pH 7.30 L (7.380-7.420) ABG pCO2 71 H* (38-42) mmHg ABG pO2 94 (61-120) mmHg ABG HCO3 34 H (22-26) mmol/L ABG O2 Content 17.4 (12.0-20.0) Vol % ABG Base Excess 7.5 H (-2-2) mmol/L ABG Methemoglobin 1.0 (0-2) % Momo Test Present Hemoglobin 13.1 (12.0-16.0) G/DL Carboxyhemoglobin 1.2 (0-4) % O2 Delivery Device Nasal cannula Liter Flow 4.00 L/M Critical Value Yes Sodium (136-145) meq/L Potassium (3.5-5.1) meq/L Chloride (98-107) meq/L Carbon Dioxide (21.0-32.0) meq/L Anion Gap (5-15) meq/L BUN (7-18) mg/dL Creatinine (0.50-1.00) mg/dL Estimated GFR (>89) mL/min POC Glucose (68-110) mg/dl Random Glucose (74-106) mg/dL Hemoglobin A1c (4.3-6.0) % Calcium (8.5-10.1) mg/dL Phosphorus (2.5-4.9) mg/dL Magnesium (1.5-2.5) mg/dL Total Bilirubin (0.2-1.0) mg/dL AST (15-37) U/L ALT (10-53) U/L Alkaline Phosphatase (45-117) U/L Troponin I 0.15 H (0.02-0.05) ng/mL B-Natriuretic Peptide (0-100) pg/mL Total Protein (6.4-8.2) g/dL Albumin (3.4-5.0) g/dL TSH (0.358-3.740) uIU/mL Free T4 (0.76-1.46) ng/dL 02/23/18 02/23/18 02/23/18 Range/Units 04:52 08:34 10:38 WBC (4.0-11.0) th/mm3 RBC (4.00-5.30) mil/mm3 Hgb (11.6-15.3) gm/dL Hct (35.0-46.0) % MCV (80.0-100.0) fL MCH (27.0-34.0) pg MCHC (32.0-36.0) % RDW (11.6-17.2) % Plt Count (150-450) th/mm3 MPV (7.0-11.0) fL Neut % (Auto) (16.0-70.0) % Lymph % (Auto) (9.0-44.0) % Leslie % (Auto) (0.0-8.0) % Eos % (Auto) (0.0-4.0) % Baso % (Auto) (0.0-2.0) % Neut # (Auto) (1.8-7.7) th/mm3 Lymph # (Auto) (1.0-4.8) th/mm3 Leslie # (Auto) (0.0-0.9) th/mm3 Eos # (Auto) (0.0-0.4) th/mm3 Baso # (Auto) (0.0-0.2) th/mm3 WBC Differential Differential Comment Puncture Site Patient Temperature O2 Saturation (90-100) % ABG pH (7.380-7.420) ABG pCO2 (38-42) mmHg ABG pO2 (61-120) mmHg ABG HCO3 (22-26) mmol/L ABG O2 Content (12.0-20.0) Vol % ABG Base Excess (-2-2) mmol/L ABG Methemoglobin (0-2) % Momo Test Hemoglobin (12.0-16.0) G/DL Carboxyhemoglobin (0-4) % O2 Delivery Device Liter Flow L/M Critical Value Sodium 140 (136-145) meq/L Potassium 3.7 D (3.5-5.1) meq/L Chloride 98 (98-107) meq/L Carbon Dioxide 37.5 H (21.0-32.0) meq/L Anion Gap 5 (5-15) meq/L BUN 18 (7-18) mg/dL Creatinine 0.89 (0.50-1.00) mg/dL Estimated GFR 75 L (>89) mL/min POC Glucose 157 H 154 H (68-110) mg/dl Random Glucose 84 (74-106) mg/dL Hemoglobin A1c (4.3-6.0) % Calcium 8.6 (8.5-10.1) mg/dL Phosphorus 4.2 (2.5-4.9) mg/dL Magnesium 1.8 (1.5-2.5) mg/dL Total Bilirubin 0.9 (0.2-1.0) mg/dL AST 51 H (15-37) U/L ALT 39 (10-53) U/L Alkaline Phosphatase 82 (45-117) U/L Troponin I (0.02-0.05) ng/mL B-Natriuretic Peptide (0-100) pg/mL Total Protein 6.6 D (6.4-8.2) g/dL Albumin 3.4 (3.4-5.0) g/dL TSH (0.358-3.740) uIU/mL Free T4 (0.76-1.46) ng/dL 02/23/18 02/23/18 02/24/18 Range/Units 16:02 21:28 04:41 WBC 4.5 (4.0-11.0) th/mm3 RBC 3.93 L (4.00-5.30) mil/mm3 Hgb 12.2 (11.6-15.3) gm/dL Hct 38.3 (35.0-46.0) % MCV 97.4 (80.0-100.0) fL MCH 31.1 (27.0-34.0) pg MCHC 31.9 L (32.0-36.0) % RDW 14.3 (11.6-17.2) % Plt Count 125 L (150-450) th/mm3 MPV 11.5 H (7.0-11.0) fL Neut % (Auto) 51.6 (16.0-70.0) % Lymph % (Auto) 28.6 (9.0-44.0) % Leslie % (Auto) 17.6 H (0.0-8.0) % Eos % (Auto) 0.9 (0.0-4.0) % Baso % (Auto) 1.3 (0.0-2.0) % Neut # (Auto) 2.3 (1.8-7.7) th/mm3 Lymph # (Auto) 1.3 (1.0-4.8) th/mm3 Leslie # (Auto) 0.8 (0.0-0.9) th/mm3 Eos # (Auto) 0.0 (0.0-0.4) th/mm3 Baso # (Auto) 0.1 (0.0-0.2) th/mm3 WBC Differential . Differential Comment Auto diff final Puncture Site Patient Temperature O2 Saturation (90-100) % ABG pH (7.380-7.420) ABG pCO2 (38-42) mmHg ABG pO2 (61-120) mmHg ABG HCO3 (22-26) mmol/L ABG O2 Content (12.0-20.0) Vol % ABG Base Excess (-2-2) mmol/L ABG Methemoglobin (0-2) % Momo Test Hemoglobin (12.0-16.0) G/DL Carboxyhemoglobin (0-4) % O2 Delivery Device Liter Flow L/M Critical Value Sodium (136-145) meq/L Potassium (3.5-5.1) meq/L Chloride (98-107) meq/L Carbon Dioxide (21.0-32.0) meq/L Anion Gap (5-15) meq/L BUN (7-18) mg/dL Creatinine (0.50-1.00) mg/dL Estimated GFR (>89) mL/min POC Glucose 146 H 119 H (68-110) mg/dl Random Glucose (74-106) mg/dL Hemoglobin A1c (4.3-6.0) % Calcium (8.5-10.1) mg/dL Phosphorus (2.5-4.9) mg/dL Magnesium (1.5-2.5) mg/dL Total Bilirubin (0.2-1.0) mg/dL AST (15-37) U/L ALT (10-53) U/L Alkaline Phosphatase (45-117) U/L Troponin I (0.02-0.05) ng/mL B-Natriuretic Peptide (0-100) pg/mL Total Protein (6.4-8.2) g/dL Albumin (3.4-5.0) g/dL TSH (0.358-3.740) uIU/mL Free T4 (0.76-1.46) ng/dL 02/24/18 02/24/18 02/24/18 Range/Units 04:41 04:41 08:22 WBC (4.0-11.0) th/mm3 RBC (4.00-5.30) mil/mm3 Hgb (11.6-15.3) gm/dL Hct (35.0-46.0) % MCV (80.0-100.0) fL MCH (27.0-34.0) pg MCHC (32.0-36.0) % RDW (11.6-17.2) % Plt Count (150-450) th/mm3 MPV (7.0-11.0) fL Neut % (Auto) (16.0-70.0) % Lymph % (Auto) (9.0-44.0) % Leslie % (Auto) (0.0-8.0) % Eos % (Auto) (0.0-4.0) % Baso % (Auto) (0.0-2.0) % Neut # (Auto) (1.8-7.7) th/mm3 Lymph # (Auto) (1.0-4.8) th/mm3 Leslie # (Auto) (0.0-0.9) th/mm3 Eos # (Auto) (0.0-0.4) th/mm3 Baso # (Auto) (0.0-0.2) th/mm3 WBC Differential Differential Comment Puncture Site Patient Temperature O2 Saturation (90-100) % ABG pH (7.380-7.420) ABG pCO2 (38-42) mmHg ABG pO2 (61-120) mmHg ABG HCO3 (22-26) mmol/L ABG O2 Content (12.0-20.0) Vol % ABG Base Excess (-2-2) mmol/L ABG Methemoglobin (0-2) % Momo Test Hemoglobin (12.0-16.0) G/DL Carboxyhemoglobin (0-4) % O2 Delivery Device Liter Flow L/M Critical Value Sodium 140 (136-145) meq/L Potassium 3.7 (3.5-5.1) meq/L Chloride 96 L (98-107) meq/L Carbon Dioxide 39.8 H (21.0-32.0) meq/L Anion Gap 4 L (5-15) meq/L BUN 19 H (7-18) mg/dL Creatinine 1.07 H (0.50-1.00) mg/dL Estimated GFR 60 L (>89) mL/min POC Glucose 100 (68-110) mg/dl Random Glucose 86 (74-106) mg/dL Hemoglobin A1c 6.0 (4.3-6.0) % Calcium 8.4 L (8.5-10.1) mg/dL Phosphorus 3.7 (2.5-4.9) mg/dL Magnesium 1.8 (1.5-2.5) mg/dL Total Bilirubin 0.7 (0.2-1.0) mg/dL AST 39 H (15-37) U/L ALT 35 (10-53) U/L Alkaline Phosphatase 80 (45-117) U/L Troponin I (0.02-0.05) ng/mL B-Natriuretic Peptide (0-100) pg/mL Total Protein 6.5 (6.4-8.2) g/dL Albumin 3.3 L (3.4-5.0) g/dL TSH 0.447 (0.358-3.740) uIU/mL Free T4 1.00 (0.76-1.46) ng/dL 02/24/18 02/24/18 02/24/18 Range/Units 11:28 16:42 21:34 WBC (4.0-11.0) th/mm3 RBC (4.00-5.30) mil/mm3 Hgb (11.6-15.3) gm/dL Hct (35.0-46.0) % MCV (80.0-100.0) fL MCH (27.0-34.0) pg MCHC (32.0-36.0) % RDW (11.6-17.2) % Plt Count (150-450) th/mm3 MPV (7.0-11.0) fL Neut % (Auto) (16.0-70.0) % Lymph % (Auto) (9.0-44.0) % Leslie % (Auto) (0.0-8.0) % Eos % (Auto) (0.0-4.0) % Baso % (Auto) (0.0-2.0) % Neut # (Auto) (1.8-7.7) th/mm3 Lymph # (Auto) (1.0-4.8) th/mm3 Leslie # (Auto) (0.0-0.9) th/mm3 Eos # (Auto) (0.0-0.4) th/mm3 Baso # (Auto) (0.0-0.2) th/mm3 WBC Differential Differential Comment Puncture Site Patient Temperature O2 Saturation (90-100) % ABG pH (7.380-7.420) ABG pCO2 (38-42) mmHg ABG pO2 (61-120) mmHg ABG HCO3 (22-26) mmol/L ABG O2 Content (12.0-20.0) Vol % ABG Base Excess (-2-2) mmol/L ABG Methemoglobin (0-2) % Momo Test Hemoglobin (12.0-16.0) G/DL Carboxyhemoglobin (0-4) % O2 Delivery Device Liter Flow L/M Critical Value Sodium (136-145) meq/L Potassium (3.5-5.1) meq/L Chloride (98-107) meq/L Carbon Dioxide (21.0-32.0) meq/L Anion Gap (5-15) meq/L BUN (7-18) mg/dL Creatinine (0.50-1.00) mg/dL Estimated GFR (>89) mL/min POC Glucose 143 H 117 H 116 H (68-110) mg/dl Random Glucose (74-106) mg/dL Hemoglobin A1c (4.3-6.0) % Calcium (8.5-10.1) mg/dL Phosphorus (2.5-4.9) mg/dL Magnesium (1.5-2.5) mg/dL Total Bilirubin (0.2-1.0) mg/dL AST (15-37) U/L ALT (10-53) U/L Alkaline Phosphatase (45-117) U/L Troponin I (0.02-0.05) ng/mL B-Natriuretic Peptide (0-100) pg/mL Total Protein (6.4-8.2) g/dL Albumin (3.4-5.0) g/dL TSH (0.358-3.740) uIU/mL Free T4 (0.76-1.46) ng/dL 02/25/18 02/25/18 02/25/18 Range/Units 07:57 11:42 16:35 WBC (4.0-11.0) th/mm3 RBC (4.00-5.30) mil/mm3 Hgb (11.6-15.3) gm/dL Hct (35.0-46.0) % MCV (80.0-100.0) fL MCH (27.0-34.0) pg MCHC (32.0-36.0) % RDW (11.6-17.2) % Plt Count (150-450) th/mm3 MPV (7.0-11.0) fL Neut % (Auto) (16.0-70.0) % Lymph % (Auto) (9.0-44.0) % Leslie % (Auto) (0.0-8.0) % Eos % (Auto) (0.0-4.0) % Baso % (Auto) (0.0-2.0) % Neut # (Auto) (1.8-7.7) th/mm3 Lymph # (Auto) (1.0-4.8) th/mm3 Leslie # (Auto) (0.0-0.9) th/mm3 Eos # (Auto) (0.0-0.4) th/mm3 Baso # (Auto) (0.0-0.2) th/mm3 WBC Differential Differential Comment Puncture Site Patient Temperature O2 Saturation (90-100) % ABG pH (7.380-7.420) ABG pCO2 (38-42) mmHg ABG pO2 (61-120) mmHg ABG HCO3 (22-26) mmol/L ABG O2 Content (12.0-20.0) Vol % ABG Base Excess (-2-2) mmol/L ABG Methemoglobin (0-2) % Momo Test Hemoglobin (12.0-16.0) G/DL Carboxyhemoglobin (0-4) % O2 Delivery Device Liter Flow L/M Critical Value Sodium (136-145) meq/L Potassium (3.5-5.1) meq/L Chloride (98-107) meq/L Carbon Dioxide (21.0-32.0) meq/L Anion Gap (5-15) meq/L BUN (7-18) mg/dL Creatinine (0.50-1.00) mg/dL Estimated GFR (>89) mL/min POC Glucose 114 H 120 H 154 H (68-110) mg/dl Random Glucose (74-106) mg/dL Hemoglobin A1c (4.3-6.0) % Calcium (8.5-10.1) mg/dL Phosphorus (2.5-4.9) mg/dL Magnesium (1.5-2.5) mg/dL Total Bilirubin (0.2-1.0) mg/dL AST (15-37) U/L ALT (10-53) U/L Alkaline Phosphatase (45-117) U/L Troponin I (0.02-0.05) ng/mL B-Natriuretic Peptide (0-100) pg/mL Total Protein (6.4-8.2) g/dL Albumin (3.4-5.0) g/dL TSH (0.358-3.740) uIU/mL Free T4 (0.76-1.46) ng/dL 02/25/18 Range/Units 20:36 WBC (4.0-11.0) th/mm3 RBC (4.00-5.30) mil/mm3 Hgb (11.6-15.3) gm/dL Hct (35.0-46.0) % MCV (80.0-100.0) fL MCH (27.0-34.0) pg MCHC (32.0-36.0) % RDW (11.6-17.2) % Plt Count (150-450) th/mm3 MPV (7.0-11.0) fL Neut % (Auto) (16.0-70.0) % Lymph % (Auto) (9.0-44.0) % Leslie % (Auto) (0.0-8.0) % Eos % (Auto) (0.0-4.0) % Baso % (Auto) (0.0-2.0) % Neut # (Auto) (1.8-7.7) th/mm3 Lymph # (Auto) (1.0-4.8) th/mm3 Leslie # (Auto) (0.0-0.9) th/mm3 Eos # (Auto) (0.0-0.4) th/mm3 Baso # (Auto) (0.0-0.2) th/mm3 WBC Differential Differential Comment Puncture Site Patient Temperature O2 Saturation (90-100) % ABG pH (7.380-7.420) ABG pCO2 (38-42) mmHg ABG pO2 (61-120) mmHg ABG HCO3 (22-26) mmol/L ABG O2 Content (12.0-20.0) Vol % ABG Base Excess (-2-2) mmol/L ABG Methemoglobin (0-2) % Momo Test Hemoglobin (12.0-16.0) G/DL Carboxyhemoglobin (0-4) % O2 Delivery Device Liter Flow L/M Critical Value Sodium (136-145) meq/L Potassium (3.5-5.1) meq/L Chloride (98-107) meq/L Carbon Dioxide (21.0-32.0) meq/L Anion Gap (5-15) meq/L BUN (7-18) mg/dL Creatinine (0.50-1.00) mg/dL Estimated GFR (>89) mL/min POC Glucose 174 H (68-110) mg/dl Random Glucose (74-106) mg/dL Hemoglobin A1c (4.3-6.0) % Calcium (8.5-10.1) mg/dL Phosphorus (2.5-4.9) mg/dL Magnesium (1.5-2.5) mg/dL Total Bilirubin (0.2-1.0) mg/dL AST (15-37) U/L ALT (10-53) U/L Alkaline Phosphatase (45-117) U/L Troponin I (0.02-0.05) ng/mL B-Natriuretic Peptide (0-100) pg/mL Total Protein (6.4-8.2) g/dL Albumin (3.4-5.0) g/dL TSH (0.358-3.740) uIU/mL Free T4 (0.76-1.46) ng/dL Imaging Data Radiologist's impression: Chest X-Ray 02/22/18 02:53 CONCLUSION: Left lower lobe consolidation Chest X-Ray 02/22/18 21:54 CONCLUSION: Cardiomegaly with dense left basilar airspace disease. Pacer lead overlies right ventricle. Findings similar to earlier exam. ECG Data Attestation: I personally reviewed and interpreted this ECG as follows: Interpretation: Twelve-lead EKG was reviewed by me. Normal sinus rhythm, left axis deviation, LVH, old anterior septal and inferior KS, tachycardia. EKG is unchanged from 06/28/2017. Heart rate of 117 bpm. Discharge Plan Discharge Disposition Patient Disposition: 30 Still Patient Physicians Team ED Provider: Armando Butler Primary Care Provider: Abeba Ramirez Attending Provider: Barrera Rey Other Providers: Ciarra Medellin [employer] Status ED Status: Left Department Discharge Information Discharge Date/Time: 02/22/18 06:20
[2018-02-22 03:43] LABS: Alkaline Phosphatase 87 U/L (45-117); Total Protein 7.3 g/dL (6.4-8.2); Troponin I 0.14 ng/mL (0.02-0.05)
[2018-02-22 03:47] LABS: Alanine Aminotransferase 34 U/L (10-53); Albumin 3.5 g/dL (3.4-5.0); Anion Gap 3 meq/L (5-15); Aspartate Aminotransferase 56 U/L (15-37); Blood Urea Nitrogen 13 mg/dL (7-18); Calcium 8.6 mg/dL (8.5-10.1); Carbon Dioxide 37.6 meq/L (21.0-32.0); Chloride 101 meq/L (98-107); Glomerular Filtration Rate 71 mL/min (>89); Glucose,Random 124 mg/dL (74-106); Sodium 142 meq/L (136-145)
[2018-02-22 03:48] LABS: Potassium 4.5 meq/L (3.5-5.1)
[2018-02-22] MEDS ORDERED: Bisacodyl 10 MG Supp RECTAL PRN (04:56)
[2018-02-22] MEDS ORDERED: Dextrose 50% in Water 50 ML Vial IV.PUSH PRN (06:11)
--- NOTE | 2018-02-22 06:13 | P.HPIM ---
History of Present Illness Primary Care Physician: Abeba Ramirez MD Chief Complaint: Shortness of breath History of Present Illness: 77-year-old female with a history of CHF, cardiomyopathy with ejection fraction less than 20%, COPD who presents with a 3-day history of cough productive of white sputum, and progressively worsening shortness of breath. She reports chronic bilateral lower extremity edema without recent worsening. She denies any changes in medications or running out of any medications. Denies any chest pain. Has had some nausea today without any vomiting. Denies any abdominal pain. Denies any dysuria. Inpatient Certification: I certify that the inpatient services were ordered in accordance with Medicare regulations governing the order. This includes certification that hospital inpatient services are reasonable and necessary and in the case of services not specified as inpatient-only under 42 CFR 419.22(n), that they are appropriately provided as inpatient services in accordance to with the 2-midnight benchmark under 43 CFR 412.3(e) Estimated Total Length of Stay (Days): 3 Plans for Post Hospital Care: Home Review of Systems All other systems reviewed negative except as stated in HPI [facility] - History History Provided By: Patient - Medical History Medical History: Medical History (Last Reviewed 02/22/18 @ 05:55 by Domingo Evans MD) Atrial fibrillation Bronchitis COPD (chronic obstructive pulmonary disease) Cardiomyopathy Diabetes type I Diverticulitis Pacemaker Stroke - Surgical History Surgical History: Surgical History (Last Updated 02/22/18 @ 05:56 by Domingo Evans MD) History of cardiac catheterization History of permanent cardiac pacemaker placement - Family History Family History: Family History (Last Updated 02/22/18 @ 05:55 by Domingo Evasn MD) Brother No problems noted. Father Family estrangement Mother Cancer - Tobacco History Tobacco Use In Past 30 Days: Yes Smoking Status: Current every day smoker Tobacco Type: Cigarettes - Alcohol History How Often Do You Have a Drink Containing Alcohol: Never - Substance Use History Substance History: No History of Abuse - Travel History Recent Travel in the [place] Within the Last 8 Weeks: No Recent Travel Out of the Country Within the Last 8 Weeks: No - Immunization History Tetanus Immunization: <5 Years Medications and Allergies Active Medications: Active Medications Al Hydroxide/Mg Hydroxide (Milk Of Magnesia Liq) 30 ml PO Q12H PRN PRN Reason: Mild Constipation Bisacodyl (Dulcolax Supp) 10 mg RECTAL DAILY PRN PRN Reason: SEVERE CONSITIPATION Furosemide (Lasix Inj) 40 mg IV.PUSH BID@0900,1800 CHRIS Lactulose (Lactulose Liq) 30 ml PO DAILY PRN PRN Reason: SEVERE CONSITIPATION Senna/Docusate Sodium (Bobbi-Colace) 1 tab PO BID CHRIS Sennosides (Senokot) 17.2 mg PO Q12H PRN PRN Reason: Moderate Constipation Allergies Allergy/AdvReac Type Severity Reaction Status Date / Time morphine Allergy Intermediate Itching Unverified 02/22/18 02:07 Home Medications Medication Instructions Recorded Confirmed Type Unable to Obtain Home Meds 02/22/18 02/22/18 History Exam Vital signs: Vital Signs 02/22/18 02:07 02/22/18 02:21 02/22/18 02:26 Temperature 99.3 F 98.1 F Pulse Rate 113 H 120 H Respiratory Rate 16 18 Blood Pressure 153/88 H 129/89 Pulse Oximetry 96 93 L 02/22/18 02:58 02/22/18 04:40 Temperature 98.1 F Pulse Rate 108 H Respiratory Rate 22 Blood Pressure 118/74 Pulse Oximetry 95 Intake & Output 02/21/18 02/21/18 02/22/18 06:59 18:59 06:59 Intake Total 100 / 100 Balance 100 / 100 Weight 58.513 kg Intake: IV 100 / 100 Rocephin Inj 1,000 MG In NS Inj 100 / 100 100 ML @ 200 mls/hr IV.SIG ONCE ONE Rx#:[id number] Narrative: GENERAL: Patient sitting up in bed. Appears moderately short of breath. Alert and oriented x3. SKIN: Warm and dry. HEAD: Atraumatic. Normocephalic. EYES: Pupils equal and round. No scleral icterus. No injection or drainage. ENT: No nasal bleeding or discharge. Mucous membranes pink and moist. NECK: Trachea midline. CARDIOVASCULAR: Regular rate and rhythm. Marked JVD RESPIRATORY: No accessory muscle use. Clear to auscultation. Breath sounds equal bilaterally. GASTROINTESTINAL: Abdomen soft, non-tender, nondistended. Hepatic and splenic margins not palpable. MUSCULOSKELETAL: Extremities without clubbing, cyanosis. +2 bilateral lower extremity edema. No obvious deformities. NEUROLOGICAL: Awake and alert. No obvious cranial nerve deficits. Motor grossly within normal limits. Five out of 5 muscle strength in the arms and legs. Normal speech. PSYCHIATRIC: Appropriate mood and affect; insight and judgment normal. Results - Labs CBC & Chem 7: 02/22/18 03:14 02/22/18 03:14 Labs: Short CBC 02/22/18 Range/Units 03:14 WBC 3.3 L (4.0-11.0) th/mm3 Hgb 13.8 (11.6-15.3) gm/dL Hct 43.0 (35.0-46.0) % Plt Count 127 L (150-450) th/mm3 BMP 02/22/18 03:14 Sodium 142 Potassium 4.5 Chloride 101 Carbon Dioxide 37.6 H BUN 13 Creatinine 0.93 Calcium 8.6 Cardiac Enzymes 02/22/18 Range/Units 03:14 Troponin I 0.14 H (0.02-0.05) ng/mL Liver Function 02/22/18 Range/Units 03:14 Total Bilirubin 0.7 (0.2-1.0) mg/dL AST 56 H (15-37) U/L ALT 34 (10-53) U/L Alkaline Phosphatase 87 (45-117) U/L Albumin 3.5 (3.4-5.0) g/dL - Imaging Impressions Chest X-Ray 02/22/18 02:53 CONCLUSION: Left lower lobe consolidation Caprini VTE Risk Assessment Caprini VTE Risk Assessment: Moderate/High Risk (score >= 2) Caprini Risk Assessment Model: Point Value = 1 Point Value = 2 Point Value = 3 Point Value = 5 Age 41-60 Minor surgery BMI > 25 kg/m2 Swollen legs Varicose veins or History of unexplained or recurrent spontaneous Oral contraceptives or hormone replacement Sepsis (< 1 month) Serious lung disease, including pneumonia (< 1 month) Abnormal pulmonary function Acute myocardial infarction Congestive heart failure (< 1 month) History of inflammatory bowel disease Medical patient at bed rest Age 61-74 Arthroscopic surgery Major open surgery (> 45 min) Laparoscopic surgery (> 45 min) Malignancy Confined to bed (> 72 hours) Immobilizing plaster cast Central venous access Age >= 75 History of VTE Family history of VTE Factor V Leiden Prothrombin [id number] Lupus anticoagulant Anticardiolipin antibodies Elevated serum homocysteine Heparin-induced thrombocytopenia Other congenital or acquired thrombophilia Stroke (< 1 month) Elective arthroplasty Hip, pelvis, or leg fracture Acute spinal cord injury (< 1 month) Prophylaxis Regimen: Total Risk Factor Score Risk Level Prophylaxis Regimen 0-1 Low Early ambulation 2 Moderate Order ONE of the following: *Sequential Compression Device (SCD) *Heparin 5000 units SQ BID 3-4 Higher Order ONE of the following medications: *Heparin 5000 units SQ TID *Enoxaparin/Lovenox 40 mg SQ daily (WT < 150 kg, CrCl > 30 mL/min) *Enoxaparin/Lovenox 30 mg SQ daily (WT < 150 kg, CrCl > 10-29 mL/min) *Enoxaparin/Lovenox 30 mg SQ BID (WT < 150 kg, CrCl > 30 mL/min) AND/OR *Sequential Compression Device (SCD) 5 or more Highest Order ONE of the following medications: *Heparin 5000 units SQ TID (Preferred with Epidurals) *Enoxaparin/Lovenox 40 mg SQ daily (WT < 150 kg, CrCl > 30 mL/min) *Enoxaparin/Lovenox 30 mg SQ daily (WT < 150 kg, CrCl > 10-29 mL/min) *Enoxaparin/Lovenox 30 mg SQ BID (WT < 150 kg, CrCl > 30 mL/min) AND *Sequential Compression Device (SCD) Assessment and Plan - Plan //CHF exacerbation. //Cardiomyopathy with ejection fraction 20% measured on echocardiogram previous year //Sinus tachycardia on admission Follows with Dr. Grant -Chest x-ray with possible left lower lobe consolidation. -BNP above 3000. -EKG -left axis deviation, left ventricular hypertrophy EKG unchanged from baseline. = Diuresis and monitor. Patient says she is on metoprolol at home. Patient has a pacer, expect that she needs rate control for improved function. Will have home medications reconciled. Start on metoprolol. Consult cardiology. //COPD exacerbation //Community-acquired pneumonia -Chest x-ray with left lower lobe consolidation. Could be infection Continue patient's home Brio. Duo nebs as needed Antibiotics. Continue to monitor //Diabetes -Insulin sliding scale. Await home medication reconciliation. //History of atrial fibrillation Status post pacemaker. Await home medication reconciliation. Cardiology to be consulted as above. Discussed Condition With: Patient, nurse, ED physician.
[2018-02-22] MEDS: Metoprolol Tartrate 50 MG Tablet PO SCH ×3 (06:39→20:28)
[2018-02-22] MEDS: Insulin NovoLOG Aspart Correctional Sugar Inj SQ SCH ×4 (09:04→20:29)
[2018-02-22] MEDS: Senna/Docusate Sodium 8.6/50 MG Tablet PO SCH ×2 (09:07→20:27)
[2018-02-22] MEDS: Potassium Chloride 10 MEQ ER Capsule PO SCH ×2 (12:29→20:26)
--- NOTE | 2018-02-22 12:53 | MB ---
cc: Ciarra Medellin MD DATE: 02/22/2018 REASON FOR CONSULTATION: CHF. HISTORY OF PRESENT ILLNESS: Ms. Chapa is a 77-year-old patient of my partner, Dr. García, who does have a history of hypertension, hyperlipidemia, COPD, cardiomyopathy with an ejection fraction of 15% to 20%. She had a CHF exacerbation earlier in the year. This admission, the patient reports she thinks she has pneumonia. She has had some chills, productive sputum for yellow-green and some shortness of breath. She notes that her edema is unchanged from her baseline. This did precipitate her emergency room visit. OUTPATIENT MEDICATIONS: Per her discharge summary include: 1. Coreg 6.25 mg b.i.d. 2. Lasix 40 mg b.i.d. 3. Potassium 10 mEq b.i.d. 4. Lisinopril 20 mg b.i.d. 5. Simvastatin 40 mg daily. 6. Spironolactone 25 mg daily. 7. Metoprolol ER 25 mg a day. Of note, there is no other documentation of her medications. PAST MEDICAL HISTORY: Includes hypertension, hyperlipidemia, atrial fibrillation, COPD, diverticular disease, severe nonischemic cardiomyopathy with an EF of 20%. She had a cardiac catheterization in 2005 with normal coronaries. She also has a history of PSVT and NSVT. ALLERGIES: MORPHINE. FAMILY HISTORY: Noncontributory. SOCIAL HISTORY: The patient is a former smoker. REVIEW OF SYSTEMS: Except as mentioned in the HPI, all 12 systems are negative. PHYSICAL EXAMINATION: VITAL SIGNS: 98.1, 108, 118/74. GENERAL: She is a well-appearing elderly female who is in no apparent distress, who does appear a bit fatigued, sitting at the bedside. NECK: Free from JVD. LUNGS: Decreased and clear to auscultation. CARDIOVASCULAR: She has a normal S1 and S2. No murmurs, rubs or gallops are appreciated. ABDOMEN: Soft. EXTREMITIES: Trace amount of edema. LABORATORY DATA: EKG from 02/22/2018 shows sinus tachycardia at 117 beats a minute. There is poor R-wave progression. Laboratory values significant for a white count of 3.3, creatinine 0.93 and serial troponins of 0.14/0.14 with a BNP of 3406. Chest x-ray from 02/22/2018 shows left lower lobe consolidation. IMPRESSION: 1. Left lower lobe pneumonia. The patient has had intermittent fevers, yellow-green sputum and has a left lower lobe consolidation on chest x-ray. She is being managed for pneumonia by the primary team. I suspect this is the major change in her shortness of breath. 2. Congestive heart failure. The patient certainly has a history of the same and may have had a slight exacerbation. She seems well compensated this morning. She gives a verbal history of being essentially at baseline in this regard. Thus, I do not feel any further intervention is required at this point. Checking an echocardiogram is reasonable as it has been more than 6 months since her last echocardiogram. Again, I would simply restart her on her present medications. I will be available on a p.r.n. basis. MD NABOR Wetzel/mino , 09:55 AM , 10:04 AM
--- NOTE | 2018-02-22 14:02 | ECG ---
Date Performed: 02/22/2018 Time Performed: 05:22:46 PTAGE: 77 years EKG: SINUS TACHYCARDIA WITH FIRST DEGREE AV BLOCK MARKED LEFT AXIS DEVIATION LEFT VENTRICULAR HY PERTROPHY AND ST-T CHANGE POSSIBLE ANTEROSEPTAL MYOCARDIAL INFARCTION ABNORMAL ECG Prior ECG 02/23/20 18 2.26 Since the PREVIOUS TRACING , no significant change noted DOCTOR: Robert Steele Interpretating Date/Time 02/22/2018 14:01:09
--- NOTE | 2018-02-22 14:14 | ECG ---
Date Performed: 02/22/2018 Time Performed: 02:26:08 PTAGE: 77 years EKG: SINUS TACHYCARDIA POSSIBLE LEFT ATRIAL ENLARGEMENT MARKED LEFT AXIS DEVIATION LEFT VENTRICU LAR HYPERTROPHY AND ST-T CHANGE POSSIBLE ANTEROSEPTAL MYOCARDIAL INFARCTION ABNORMAL ECG PREVIOUS TRACING : 06/28/2017 19.12 DOCTOR: Robert Steele Interpretating Date/Time 02/22/2018 14:13:08
[2018-02-22] MEDS: Furosemide 40 MG Tablet PO SCH (18:02)
[2018-02-22 21:54] LABS: ABG Base Excess 7.5 mmol/L (-2-2); ABG PCO2 71 mmHg (38-42); ABG PO2 94 mmHg (61-120)
--- NOTE | 2018-02-22 22:26 | P.PNADD ---
Addendum to Inpatient Note Reason for Addendum: Additional Documentation Additional information: Subjective: Resident team paged for BELEN at 9:40PM. Residents responded to the call. 77 yo F hospitalized for CHF, pneumonia, and chest pain. Patient was found on the floor and complained of chest pain and shortness of breath. She was diaphoretic at the time. Patient reported that she was hot and SOB, so that is why she laid on the floor. She denied chest pain at the time of examination. She was adamant that nothing was wrong with her. She kept saying that she was hot and didn't want to answer any more questions. Objective: HR 122 BP: 132/90 SPO2 99% on 4L HR 89 RR 24 General: no acute distress, non-diaphoretic Cardio: RRR, no murmurs, no gallops, no rubs Respiratory: increased work of breathing, bilateral basilar crackles, coughing intermittently Extremities: bilateral 2+ pitting edema to the knee Assessment and Plan: Patient with a CHF exacerbation. - EKG - CXR - Duoneb treatment CHRIS Q4H - Transfer to [facility] for BiPap administration - Will defer lasix at this time as she as already received 80 mg lasix today Seen discussed with: Dr. Leach
--- NOTE | 2018-02-22 22:49 | XR ---
EXAM DATE: 02/22/2018 10:26 PM EDT AGE/SEX: 77 years / Female INDICATIONS: Shortness of breath. Halicat. CLINICAL DATA: This is the patient's initial encounter. Patient reports that signs and symptoms have been present for 1 day and indicates a pain score of 0/10. MEDICAL/SURGICAL HISTORY: . Chronic obstructive pulmonary disease. Congestive heart failure. Hy pertension. . Pacemaker. Colon resection. Hysterectomy. Appendectomy. . COMPARISON: [facility] [place], CHEST 1V SINGLE AP, 02/22/2018. . FINDINGS: Cardiomegaly. Pacer lead overlies right ventricle. Consolidation left lung base. Mild right basilar o pacity. No pneumothorax. CONCLUSION: Cardiomegaly with dense left basilar airspace disease. Pacer lead overlies right ventricle. Findings similar to earlier exam. Electronically signed by: Dillon Soares MD 02/22/2018 10:48 PM EDT
[2018-02-23 05:55] LABS: Baso % (Auto) 0.8 % (0.0-2.0); Eos % (Auto) 0.2 % (0.0-4.0); Hematocrit 38.5 % (35.0-46.0); Hemoglobin 12.4 gm/dL (11.6-15.3); Lymph # (Auto) 0.8 th/mm3 (1.0-4.8); Lymph % (Auto) 17.4 % (9.0-44.0); Mean Corpuscular HGB Conc 32.2 % (32.0-36.0); Mean Corpuscular Hemoglobin 31.5 pg (27.0-34.0); Mean Corpuscular Volume 97.7 fL (80.0-100.0); Mean Platelet Volume 11.5 fL (7.0-11.0); Mono # (Auto) 0.5 th/mm3 (0.0-0.9); Neut # (Auto) 3.2 th/mm3 (1.8-7.7); Neut % (Auto) 70.6 % (16.0-70.0); Platelet Count 108 th/mm3 (150-450); Red Blood Count 3.94 mil/mm3 (4.00-5.30); Red Cell Distribution Width 14.4 % (11.6-17.2); White Blood Count 4.5 th/mm3 (4.0-11.0)
[2018-02-23 06:11] LABS: Alanine Aminotransferase 39 U/L (10-53); Albumin 3.4 g/dL (3.4-5.0); Anion Gap 5 meq/L (5-15); Aspartate Aminotransferase 51 U/L (15-37); Blood Urea Nitrogen 18 mg/dL (7-18); Calcium 8.6 mg/dL (8.5-10.1); Carbon Dioxide 37.5 meq/L (21.0-32.0); Chloride 98 meq/L (98-107); Glomerular Filtration Rate 75 mL/min (>89); Glucose,Random 84 mg/dL (74-106); Magnesium 1.8 mg/dL (1.5-2.5); Phosphorus 4.2 mg/dL (2.5-4.9); Potassium 3.7 meq/L (3.5-5.1); Sodium 140 meq/L (136-145)
[2018-02-23 06:15] LABS: Alkaline Phosphatase 82 U/L (45-117); Total Protein 6.6 g/dL (6.4-8.2)
[2018-02-23] MEDS: Potassium Chloride 10 MEQ ER Capsule PO SCH ×3 (08:49→20:51)
[2018-02-23] MEDS: Azithromycin 250 MG Tablet PO SCH (08:49)
[2018-02-23] MEDS: Senna/Docusate Sodium 8.6/50 MG Tablet PO SCH ×2 (08:49→20:48)
[2018-02-23] MEDS: Metoprolol Tartrate 50 MG Tablet PO SCH ×2 (08:49→20:47)
[2018-02-23] MEDS: Furosemide 40 MG Tablet PO SCH ×2 (08:53→17:50)
[2018-02-23] MEDS: Insulin NovoLOG Aspart Correctional Sugar Inj SQ SCH ×4 (08:54→21:29)
[2018-02-23] MEDS ORDERED: KLOR CON PO SCH (09:15)
[2018-02-23] MEDS ORDERED: Carvedilol 6.25 MG Tablet PO SCH (09:15)
[2018-02-23] MEDS ORDERED: Budesonide-Formoterol 160/4.5 MCG 6 GM Inhaler INH SCH (10:00)
[2018-02-23] MEDS ORDERED: predniSONE 5 MG Tablet PO SCH (10:00)
--- NOTE | 2018-02-23 10:17 | P.PNIM ---
Subjective Interval history: Chief Complaint: Shortness of breath History of Present Illness: 77-year-old female with a history of CHF, cardiomyopathy with ejection fraction less than 20%, COPD who presents with a 3-day history of cough productive of white sputum, and progressively worsening shortness of breath. She reports chronic bilateral lower extremity edema without recent worsening. She denies any changes in medications or running out of any medications. Denies any chest pain. Has had some nausea today without any vomiting. Denies any abdominal pain. Denies any dysuria. 02-23 TRANSFERRED TO [facility] WAS FOUND ON FLOOR TRANSFERRED FOR BIPAP/CPAP BUT THEN REFUSED Physical Exam Vital signs: Vital Signs 02/22/18 12:00 02/22/18 15:05 02/22/18 16:00 Temperature 96.7 F L 97.1 F L Pulse Rate 82 87 Respiratory Rate 19 18 Blood Pressure 116/72 123/83 Pulse Oximetry 100 97 97 02/22/18 19:28 02/22/18 20:00 02/22/18 22:55 Temperature 97.8 F Pulse Rate 85 Respiratory Rate 16 Blood Pressure 128/68 Pulse Oximetry 97 97 97 02/22/18 23:00 02/22/18 23:51 02/22/18 23:54 Temperature 97.4 F L Pulse Rate 87 83 Respiratory Rate 20 Blood Pressure 111/74 Pulse Oximetry 96 95 02/23/18 01:00 02/23/18 02:00 02/23/18 03:00 Temperature Pulse Rate 88 89 88 Respiratory Rate Blood Pressure Pulse Oximetry 02/23/18 03:08 02/23/18 03:49 02/23/18 04:00 Temperature 97.5 F L Pulse Rate 88 86 87 Respiratory Rate 20 18 Blood Pressure 113/62 Pulse Oximetry 95 02/23/18 05:00 02/23/18 05:59 02/23/18 07:00 Temperature Pulse Rate 86 85 86 Respiratory Rate Blood Pressure Pulse Oximetry 02/23/18 08:00 02/23/18 09:33 Temperature 98.2 F Pulse Rate 73 81 Respiratory Rate 19 16 Blood Pressure 129/74 Pulse Oximetry 92 L 93 L Intake & Output 02/22/18 02/23/18 02/23/18 18:59 06:59 18:59 Intake Total 100 / 100 100 / 100 Output Total 250 / 250 0 / 0 Balance -150 / -150 100 / 100 Weight 57.3 kg 58 kg Intake: IV 100 / 100 100 / 100 Rocephin Inj 1,000 MG In NS Inj 100 / 100 100 / 100 100 ML @ 200 mls/hr IV.SIG Q24H [facility] Rx#:[id number] Oral 0 / 0 Output: Urine 250 / 250 0 / 0 Other: Date of Last Bowel Movement 02/22/18 Narrative: GENERAL: Patient sitting up in bed. Appears moderately short of breath. Alert and oriented x3. SKIN: Warm and dry. HEAD: Atraumatic. Normocephalic. EYES: Pupils equal and round. No scleral icterus. No injection or drainage. EOMI ENT: No nasal bleeding or discharge. Mucous membranes pink and moist. NECK: Trachea midline. CARDIOVASCULAR: Regular rate and rhythm. Marked JVD S1, S2 NO S4 RESPIRATORY: No accessory muscle use. Clear to auscultation. Breath sounds equal bilaterally. GASTROINTESTINAL: Abdomen soft, non-tender, nondistended. Hepatic and splenic margins not palpable. MUSCULOSKELETAL: Extremities without clubbing, cyanosis. +2 bilateral lower extremity edema. No obvious deformities. NEUROLOGICAL: Awake and alert. No obvious cranial nerve deficits. Motor grossly within normal limits. Five out of 5 muscle strength in the arms and legs. Normal speech. PSYCHIATRIC: Appropriate mood and affect; insight and judgment normal. Results - Labs CBC & Chem 7: 02/23/18 04:52 02/23/18 04:52 Laboratory Results - last 24 hr 02/22/18 02/22/18 02/22/18 12:07 12:09 18:01 WBC RBC Hgb Hct MCV MCH MCHC RDW Plt Count MPV Neut % (Auto) Lymph % (Auto) Morgan % (Auto) Eos % (Auto) Baso % (Auto) Neut # (Auto) Lymph # (Auto) Morgan # (Auto) Eos # (Auto) Baso # (Auto) WBC Differential Differential Comment Puncture Site Patient Temperature O2 Saturation ABG pH ABG pCO2 ABG pO2 ABG HCO3 ABG O2 Content ABG Base Excess ABG Methemoglobin Momo Test Hemoglobin Carboxyhemoglobin O2 Delivery Device Liter Flow Critical Value Sodium Potassium Chloride Carbon Dioxide Anion Gap BUN Creatinine Estimated GFR POC Glucose 113 H 97 Random Glucose Calcium Phosphorus Magnesium Total Bilirubin AST ALT Alkaline Phosphatase Troponin I 0.14 H Total Protein Albumin 02/22/18 02/22/18 02/22/18 19:51 21:45 22:14 WBC RBC Hgb Hct MCV MCH MCHC RDW Plt Count MPV Neut % (Auto) Lymph % (Auto) Morgan % (Auto) Eos % (Auto) Baso % (Auto) Neut # (Auto) Lymph # (Auto) Morgan # (Auto) Eos # (Auto) Baso # (Auto) WBC Differential Differential Comment Puncture Site Right radial Patient Temperature 98.6 O2 Saturation 94 ABG pH 7.30 L ABG pCO2 71 H* ABG pO2 94 ABG HCO3 34 H ABG O2 Content 17.4 ABG Base Excess 7.5 H ABG Methemoglobin 1.0 Momo Test Present Hemoglobin 13.1 Carboxyhemoglobin 1.2 O2 Delivery Device Nasal cannula Liter Flow 4.00 Critical Value Yes Sodium Potassium Chloride Carbon Dioxide Anion Gap BUN Creatinine Estimated GFR POC Glucose 132 H Random Glucose Calcium Phosphorus Magnesium Total Bilirubin AST ALT Alkaline Phosphatase Troponin I 0.15 H Total Protein Albumin 02/23/18 02/23/18 02/23/18 04:52 04:52 08:34 WBC 4.5 RBC 3.94 L Hgb 12.4 Hct 38.5 MCV 97.7 MCH 31.5 MCHC 32.2 RDW 14.4 Plt Count 108 L MPV 11.5 H Neut % (Auto) 70.6 H Lymph % (Auto) 17.4 Morgan % (Auto) 11.0 H Eos % (Auto) 0.2 Baso % (Auto) 0.8 Neut # (Auto) 3.2 Lymph # (Auto) 0.8 L Morgan # (Auto) 0.5 Eos # (Auto) 0.0 Baso # (Auto) 0.0 WBC Differential . Differential Comment Auto diff final Puncture Site Patient Temperature O2 Saturation ABG pH ABG pCO2 ABG pO2 ABG HCO3 ABG O2 Content ABG Base Excess ABG Methemoglobin Momo Test Hemoglobin Carboxyhemoglobin O2 Delivery Device Liter Flow Critical Value Sodium 140 Potassium 3.7 D Chloride 98 Carbon Dioxide 37.5 H Anion Gap 5 BUN 18 Creatinine 0.89 Estimated GFR 75 L POC Glucose 157 H Random Glucose 84 Calcium 8.6 Phosphorus 4.2 Magnesium 1.8 Total Bilirubin 0.9 AST 51 H ALT 39 Alkaline Phosphatase 82 Troponin I Total Protein 6.6 D Albumin 3.4 - Imaging Impressions Chest X-Ray 02/22/18 21:54 CONCLUSION: Cardiomegaly with dense left basilar airspace disease. Pacer lead overlies right ventricle. Findings similar to earlier exam. Assessment and Plan - Plan CHF exacerbation. Cardiomyopathy with ejection fraction 20% measured on echocardiogram previous year Sinus tachycardia on admission Follows with Dr. Grant--CARDIOLOGY CONSULTED -Chest x-ray with possible left lower lobe consolidation. -BNP above 3000. -EKG -left axis deviation, left ventricular hypertrophy EKG unchanged from baseline. = Diuresis and monitor. Patient says she is on metoprolol at home. Patient has a pacer, expect that she needs rate control for improved function. Will have home medications reconciled. Start on metoprolol. Consult cardiology. COPD exacerbation Community-acquired pneumonia -Chest x-ray with left lower lobe consolidation. Could be infection Continue patient's home Brio. Duo nebs as needed Antibiotics. Continue to monitor MUCINEX-DUONEBS- BREO Diabetes -Insulin sliding scale. Await home medication reconciliation. History of atrial fibrillation Status post pacemaker. Await home medication reconciliation. Cardiology to be consulted as above. HYPERLIPIDEMIA- RESUME HOME STATIN CHRONIC PREDNISONE -CONTINUE NEEDS ANTICOAGULANT GI PROPHYLAXIS Code Status: FULL CODE Discussed Condition With: RN AND PT AND CM Discharge Planning: PENDING IMPROVEMENT AND CARDIAC CLEARANCE
[2018-02-23] MEDS: Lisinopril 20 MG Tablet PO SCH ×2 (11:15→20:49)
[2018-02-23] MEDS: Spironolactone 25 MG Tablet PO SCH (11:15)
[2018-02-23] MEDS: Famotidine 20 MG Tablet PO SCH ×2 (11:20→20:48)
[2018-02-23] MEDS: guaiFENesin 600 MG ER Tablet PO SCH ×2 (11:20→20:48)
[2018-02-23] MEDS: predniSONE 20 MG Tablet PO SCH (11:21)
[2018-02-23] MEDS: Enoxaparin Inj 40 MG/0.4 ML Syringe SQ SCH (11:21)
--- NOTE | 2018-02-23 15:28 | ECHRPT ---
Indication: Heart failure, unspecified CONCLUSIONS The left ventricular systolic function is severely reduced with an estimated ejection fraction less than 20%. Moderately dilated left and right ventricles. Moderate to severe biatrial enlargement. Moderate Mitral valve regurgitation. Mild Aortic Valve Regurgition. (pressure half time of 746 ms) Moderate to Severe Tricuspid Regurgitation. The inferior vena cava is dilated with less than 50% respiratory change in dimension of the inferior vena cava (abnormal). In comparision to the echo from 07/13, the Tricuspid regurgitation appears to be worse by visual vicente mate of the color doppler flow. BP: / HR: Rhythm: Technical Quality: FINDINGS LEFT VENTRICLE The left ventricular systolic function is severely reduced with an estimated ejection fraction less than 20%. Mild concentric left ventricular hypertrophy. RIGHT VENTRICLE The right ventricle is moderate dilated. LEFT ATRIUM The left atrial size is [id number] dilated. RIGHT ATRIUM The right atrial size is [id number] dilated. ATRIAL SEPTUM Normal atrial septal thickness without atrial level shunting by limited color doppler interrogation. AORTA The aortic root and proximal ascending aorta are not well visualized. MITRAL VALVE Structurally normal mitral valve. Moderate mitral valve regurgitation. AORTIC VALVE Trileaflet aortic valve. Mild aortic valve regurgitation. TRICUSPID VALVE The estimated pulmonary arterial pressure is 58mmHg. Severe Tricuspid Regurgitation. PULMONARY VALVE No pulmonary valve regurgitation. VESSELS There is less than 50% respiratory change in dimension of the inferior vena cava (abnormal). The inferior vena cava is dilated. PERICARDIUM There is no pericardial effusion. Adrienne Linares MD (Electronically Signed) Final Date:23 February 2018 15:27
--- NOTE | 2018-02-23 16:47 | ECG ---
Date Performed: 02/22/2018 Time Performed: 17:34:05 PTAGE: 77 years EKG: Sinus rhythm MARKED LEFT AXIS DEVIATION PATTERN CONSISTENT WITH PULMONARY DISEASE LEFT VENTRICULAR HYPERTROPHY AN D ST-T CHANGE Poor R wave progression. When compared to previous tracing, no significant change. ABNO RMAL ECG PREVIOUS TRACING : 02/22/2018 05.22 DOCTOR: Rod Harris Interpretating Date/Time 02/23/2018 16:46:19
--- NOTE | 2018-02-23 18:13 | ECG ---
Date Performed: 02/22/2018 Time Performed: 22:02:56 PTAGE: 77 years EKG: Sinus rhythm Left axis deviation Cannot rule out anteroseptal infarct - age undetermined LVH with secondary repol arization abnormality Lateral ST-T changes may be due to hypertrophy and/or ischemia Abnormal ECG PREVIOUS TRACING : 02/22/2018 17.34 Since the previous tracing, no significant change noted DOCTOR: Rod Harris Interpretating Date/Time 02/23/2018 18:11:33
[2018-02-24 05:59] LABS: Baso # (Auto) 0.1 th/mm3 (0.0-0.2); Baso % (Auto) 1.3 % (0.0-2.0); Eos % (Auto) 0.9 % (0.0-4.0); Hematocrit 38.3 % (35.0-46.0); Hemoglobin 12.2 gm/dL (11.6-15.3); Lymph # (Auto) 1.3 th/mm3 (1.0-4.8); Lymph % (Auto) 28.6 % (9.0-44.0); Mean Corpuscular HGB Conc 31.9 % (32.0-36.0); Mean Corpuscular Hemoglobin 31.1 pg (27.0-34.0); Mean Corpuscular Volume 97.4 fL (80.0-100.0); Mean Platelet Volume 11.5 fL (7.0-11.0); Mono # (Auto) 0.8 th/mm3 (0.0-0.9); Mono % (Auto) 17.6 % (0.0-8.0); Neut # (Auto) 2.3 th/mm3 (1.8-7.7); Neut % (Auto) 51.6 % (16.0-70.0); Platelet Count 125 th/mm3 (150-450); Red Blood Count 3.93 mil/mm3 (4.00-5.30); Red Cell Distribution Width 14.3 % (11.6-17.2); White Blood Count 4.5 th/mm3 (4.0-11.0)
[2018-02-24 06:17] LABS: Alanine Aminotransferase 35 U/L (10-53); Albumin 3.3 g/dL (3.4-5.0); Anion Gap 4 meq/L (5-15); Aspartate Aminotransferase 39 U/L (15-37); Blood Urea Nitrogen 19 mg/dL (7-18); Calcium 8.4 mg/dL (8.5-10.1); Carbon Dioxide 39.8 meq/L (21.0-32.0); Chloride 96 meq/L (98-107); Glomerular Filtration Rate 60 mL/min (>89); Glucose,Random 86 mg/dL (74-106); Magnesium 1.8 mg/dL (1.5-2.5); Phosphorus 3.7 mg/dL (2.5-4.9); Potassium 3.7 meq/L (3.5-5.1); Sodium 140 meq/L (136-145)
[2018-02-24 06:25] LABS: Alkaline Phosphatase 80 U/L (45-117); Thyroid Stimulating Hormone 0.447 uIU/mL (0.358-3.740); Total Protein 6.5 g/dL (6.4-8.2)
[2018-02-24] MEDS: Insulin NovoLOG Aspart Correctional Sugar Inj SQ SCH ×3 (08:00→17:30)
--- NOTE | 2018-02-24 09:36 | P.PNIM ---
Subjective Interval history: Patient complains of shortness of breath when ambulating. She also has a cough which she says is improving. She does not have any other complaints today. Physical Exam Vital signs: Vital Signs 02/23/18 10:00 02/23/18 11:00 02/23/18 11:10 Temperature 98.0 F Pulse Rate 74 74 74 Respiratory Rate 22 Blood Pressure 100/72 Pulse Oximetry 100 02/23/18 13:00 02/23/18 13:01 02/23/18 13:24 Temperature Pulse Rate 78 75 79 Respiratory Rate 18 Blood Pressure Pulse Oximetry 02/23/18 15:00 02/23/18 15:54 02/23/18 15:55 Temperature 98.4 F Pulse Rate 75 73 75 Respiratory Rate 20 Blood Pressure 112/75 Pulse Oximetry 98 02/23/18 16:41 02/23/18 17:08 02/23/18 19:00 Temperature Pulse Rate 84 71 85 Respiratory Rate Blood Pressure Pulse Oximetry 02/23/18 19:43 02/23/18 20:00 02/23/18 20:03 Temperature 98.1 F Pulse Rate 85 85 Respiratory Rate 18 Blood Pressure 102/62 Pulse Oximetry 97 97 02/23/18 21:00 02/23/18 22:00 02/23/18 23:00 Temperature Pulse Rate 86 83 81 Respiratory Rate Blood Pressure Pulse Oximetry 02/23/18 23:55 02/24/18 00:00 02/24/18 01:00 Temperature 97.8 F Pulse Rate 82 82 79 Respiratory Rate 18 Blood Pressure 103/66 Pulse Oximetry 100 02/24/18 02:00 02/24/18 03:00 02/24/18 04:00 Temperature 97.4 F L Pulse Rate 80 83 77 Respiratory Rate 16 Blood Pressure 118/68 Pulse Oximetry 98 02/24/18 05:00 02/24/18 06:00 02/24/18 08:00 Temperature 98.1 F Pulse Rate 76 79 74 Respiratory Rate 16 Blood Pressure 105/66 Pulse Oximetry 100 Intake & Output 02/23/18 02/24/18 02/24/18 18:59 06:59 18:59 Intake Total 820 / 820 Output Total 201 / 201 Balance 619 / 619 Weight 59 kg Intake: IV 100 / 100 Rocephin Inj 1,000 MG In NS Inj 100 / 100 100 ML @ 200 mls/hr IV.SIG Q24H [facility] Rx#:[id number] Oral 720 / 720 Output: Urine 200 / 200 Stool Other: # Voids 1 Date of Last Bowel Movement 02/24/18 Narrative: General patient in no acute distress while at rest HEENT extraocular movements are intact, clear oropharyngeal mucosa, no JVD Cardiovascular S1-S2 audible, regular rate and rhythm Respiratory rhonchi left lower lung field. Abdomen soft, nontender, nondistended, normal bowel sounds Extremities no edema 2+ distal pulses in bilateral upper and lower extremities Neuro no neurological deficits on my physical examination. The patient was all 4 extremities and sensation is intact bilaterally Results - Labs CBC & Chem 7: 02/24/18 04:41 02/24/18 04:41 Laboratory Results - last 24 hr 02/23/18 02/23/18 02/23/18 10:38 16:02 21:28 WBC RBC Hgb Hct MCV MCH MCHC RDW Plt Count MPV Neut % (Auto) Lymph % (Auto) [place] % (Auto) Eos % (Auto) Baso % (Auto) Neut # (Auto) Lymph # (Auto) [place] # (Auto) Eos # (Auto) Baso # (Auto) WBC Differential Differential Comment Sodium Potassium Chloride Carbon Dioxide Anion Gap BUN Creatinine Estimated GFR POC Glucose 154 H 146 H 119 H Random Glucose Calcium Phosphorus Magnesium Total Bilirubin AST ALT Alkaline Phosphatase Total Protein Albumin TSH Free T4 02/24/18 02/24/18 02/24/18 04:41 04:41 08:22 WBC 4.5 RBC 3.93 L Hgb 12.2 Hct 38.3 MCV 97.4 MCH 31.1 MCHC 31.9 L RDW 14.3 Plt Count 125 L MPV 11.5 H Neut % (Auto) 51.6 Lymph % (Auto) 28.6 [place] % (Auto) 17.6 H Eos % (Auto) 0.9 Baso % (Auto) 1.3 Neut # (Auto) 2.3 Lymph # (Auto) 1.3 [place] # (Auto) 0.8 Eos # (Auto) 0.0 Baso # (Auto) 0.1 WBC Differential . Differential Comment Auto diff final Sodium 140 Potassium 3.7 Chloride 96 L Carbon Dioxide 39.8 H Anion Gap 4 L BUN 19 H Creatinine 1.07 H Estimated GFR 60 L POC Glucose 100 Random Glucose 86 Calcium 8.4 L Phosphorus 3.7 Magnesium 1.8 Total Bilirubin 0.7 AST 39 H ALT 35 Alkaline Phosphatase 80 Total Protein 6.5 Albumin 3.3 L TSH 0.447 Free T4 1.00 Microbiology 02/22/18 04:04 Blood - Peripheral Aerobic Blood Culture - Preliminary No growth in 1 day 02/22/18 04:04 Blood - Peripheral Anaerobic Blood Culture - Preliminary No growth in 1 day 02/22/18 04:09 Blood - Peripheral Aerobic Blood Culture - Preliminary No growth in 1 day 02/22/18 04:09 Blood - Peripheral Anaerobic Blood Culture - Preliminary No growth in 1 day Assessment and Plan - Plan This patient is a 77-year-old female with a diagnosis of 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 There is also a documented history of atrial fibrillation. The patient was admitted and is being treated for CHF exacerbation and a left lower lobe pneumonia. 1. Left lower lobe community-acquired pneumonia Patient has complaints of a cough. Patient's chest x-ray shows a left lower lobe pneumonia. Continue antibiotics. Continue supplemental oxygen, at baseline the patient uses 2-3 L of supplemental oxygen. Continue breathing treatments as needed. If patient shows improvement she will likely be discharged home tomorrow. Patient lives at home with her daughter and says she does not need home health at this time. Continue physical therapy. As per their documentation the patient needed to pause multiple times during physical therapy yesterday. Continue PT. 2. Nonischemic systolic CHF exacerbation Patient's ejection fraction is 20% from this admission. As per documentation the patient had a cardiac catheterization done in 2005 which showed normal coronaries. She received IV Lasix initially during the hospitalization and now appears to be euvolemic. Continue current CHF medications including beta-alonso, MARIO inhibitor, Aldactone, p.o. Lasix. Cardiology following and has given the recommendations. 3. Diabetes mellitus type 2/dyslipidemia Continue current medication regimen. 4. Documented history of atrial fibrillation Patient is currently not on anticoagulation however there is a documented history of atrial fibrillation. From my knowledge it is unclear if this is paroxysmal atrial fibrillation however currently the patient is in normal sinus rhythm. The patient is a poor historian and it is difficult to obtain information from the patient regarding her medical diagnoses. I recommend that after discharge she follows up with her paint prepper for recommendations regarding A. fib as well as CHF. Lovenox for DVT prophylaxis.
[2018-02-24] MEDS: Metoprolol Tartrate 50 MG Tablet PO SCH ×2 (11:00→21:29)
[2018-02-24] MEDS: predniSONE 20 MG Tablet PO SCH (13:00)
[2018-02-24] MEDS ORDERED: Sodium Chloride 0.9% 2 ML Flush PRN IV.FLUSH (13:03)
[2018-02-24] MEDS: Enoxaparin Inj 40 MG/0.4 ML Syringe SQ SCH (13:31)
[2018-02-24] MEDS: Lisinopril 20 MG Tablet PO SCH ×2 (13:31→21:28)
[2018-02-24] MEDS: guaiFENesin 600 MG ER Tablet PO SCH ×2 (13:32→21:25)
[2018-02-24] MEDS: Senna/Docusate Sodium 8.6/50 MG Tablet PO SCH ×2 (13:32→21:27)
[2018-02-24] MEDS: Furosemide 40 MG Tablet PO SCH ×2 (13:32→18:10)
[2018-02-24] MEDS: Azithromycin 250 MG Tablet PO SCH (13:32)
[2018-02-24] MEDS: Potassium Chloride 10 MEQ ER Capsule PO SCH ×2 (13:35→21:25)
[2018-02-24] MEDS: Spironolactone 25 MG Tablet PO SCH (13:36)
[2018-02-24] MEDS: Famotidine 20 MG Tablet PO SCH ×2 (18:43→21:26)
[2018-02-24] MEDS: Sodium Chloride 0.9% 2 ML Flush BID IV.FLUSH SCH (21:26)
[2018-02-25] MEDS: Insulin NovoLOG Aspart Correctional Sugar Inj SQ SCH ×5 (00:21→20:45)
[2018-02-25] MEDS: Enoxaparin Inj 40 MG/0.4 ML Syringe SQ SCH (09:04)
[2018-02-25] MEDS: Potassium Chloride 10 MEQ ER Capsule PO SCH ×2 (09:04→20:45)
[2018-02-25] MEDS: Lisinopril 20 MG Tablet PO SCH ×2 (09:05→20:43)
[2018-02-25] MEDS: Famotidine 20 MG Tablet PO SCH ×2 (09:05→20:46)
[2018-02-25] MEDS: Senna/Docusate Sodium 8.6/50 MG Tablet PO SCH ×2 (09:05→20:43)
[2018-02-25] MEDS: Spironolactone 25 MG Tablet PO SCH (09:05)
[2018-02-25] MEDS: guaiFENesin 600 MG ER Tablet PO SCH ×2 (09:05→20:44)
[2018-02-25] MEDS: Metoprolol Tartrate 50 MG Tablet PO SCH ×2 (09:05→20:43)
[2018-02-25] MEDS: Azithromycin 250 MG Tablet PO SCH (09:06)
[2018-02-25] MEDS: Furosemide 40 MG Tablet PO SCH ×2 (09:09→17:09)
[2018-02-25] MEDS: Sodium Chloride 0.9% 2 ML Flush BID IV.FLUSH SCH ×2 (09:09→20:45)
--- NOTE | 2018-02-25 09:32 | P.PNIM ---
Subjective Interval history: Chief Complaint: Shortness of breath History of Present Illness: 77-year-old female with a history of CHF, cardiomyopathy with ejection fraction less than 20%, COPD who presents with a 3-day history of cough productive of white sputum, and progressively worsening shortness of breath. She reports chronic bilateral lower extremity edema without recent worsening. She denies any changes in medications or running out of any medications. Denies any chest pain. Has had some nausea today without any vomiting. Denies any abdominal pain. Denies any dysuria. 02-23 TRANSFERRED TO [facility] WAS FOUND ON FLOOR TRANSFERRED FOR BIPAP/CPAP BUT THEN REFUSED MEDS ADJUSTED CONTINUE TO DIURESE INCREASE PREDNISONE PT AND OT EVAL AND TREAT 02-24 Patient complains of shortness of breath when ambulating. She also has a cough which she says is improving. She does not have any other complaints today. 02-25 SLOW IMPROVEMENT WILL NEED PT AND OT FALL PRECAUTIONS AM LABS CONTINUE ANTIBIOTICS Physical Exam Vital signs: Vital Signs 02/24/18 09:41 02/24/18 10:00 02/24/18 10:58 Temperature Pulse Rate 76 66 Respiratory Rate Blood Pressure Pulse Oximetry 98 02/24/18 11:43 02/24/18 12:00 02/24/18 13:00 Temperature 97.8 F Pulse Rate 71 68 75 Respiratory Rate 17 Blood Pressure 102/65 Pulse Oximetry 97 02/24/18 14:00 02/24/18 15:00 02/24/18 16:00 Temperature 99.3 F Pulse Rate 74 79 83 Respiratory Rate 20 Blood Pressure 114/67 Pulse Oximetry 96 02/24/18 16:09 02/24/18 17:00 02/24/18 18:00 Temperature Pulse Rate 81 83 87 Respiratory Rate 18 Blood Pressure Pulse Oximetry 02/24/18 19:00 02/24/18 19:49 02/24/18 20:00 Temperature 98.3 F Pulse Rate 87 85 85 Respiratory Rate 18 18 Blood Pressure 94/55 L Pulse Oximetry 98 95 02/24/18 21:00 02/24/18 22:00 02/24/18 23:00 Temperature Pulse Rate 87 81 71 Respiratory Rate Blood Pressure Pulse Oximetry 02/25/18 00:00 02/25/18 01:00 02/25/18 02:00 Temperature 98.3 F Pulse Rate 74 73 76 Respiratory Rate 18 Blood Pressure 97/65 L Pulse Oximetry 93 L 02/25/18 03:00 02/25/18 04:00 02/25/18 05:00 Temperature 98 F Pulse Rate 76 78 72 Respiratory Rate 18 Blood Pressure 98/66 L Pulse Oximetry 98 02/25/18 06:00 02/25/18 07:00 02/25/18 08:38 Temperature Pulse Rate 77 75 Respiratory Rate Blood Pressure Pulse Oximetry 97 Intake & Output 02/24/18 02/25/18 02/25/18 18:59 06:59 18:59 Intake Total 480 / 480 Output Total 200 / 200 Balance 280 / 280 Weight 60 kg Intake: Oral 480 / 480 Output: Urine 200 / 200 Other: # Voids 1 Date of Last Bowel Movement 02/24/18 # Bowel Movements 1 Narrative: General patient in no acute distress while at rest HEENT extraocular movements are intact, clear oropharyngeal mucosa, no JVD Cardiovascular S1-S2 audible, regular rate and rhythm Respiratory rhonchi left lower lung field. Abdomen soft, nontender, nondistended, normal bowel sounds Extremities no edema 2+ distal pulses in bilateral upper and lower extremities Neuro no neurological deficits on my physical examination. The patient was all 4 extremities and sensation is intact bilaterally Results - Labs CBC & Chem 7: 02/24/18 04:41 02/24/18 04:41 Laboratory Results - last 24 hr 02/24/18 02/24/18 02/24/18 04:41 11:28 16:42 POC Glucose 143 H 117 H Hemoglobin A1c 6.0 02/24/18 02/25/18 21:34 07:57 POC Glucose 116 H 114 H Hemoglobin A1c Microbiology 02/22/18 04:04 Blood - Peripheral Aerobic Blood Culture - Preliminary No growth in 2 days 02/22/18 04:04 Blood - Peripheral Anaerobic Blood Culture - Preliminary No growth in 2 days 02/22/18 04:09 Blood - Peripheral Aerobic Blood Culture - Preliminary No growth in 2 days 02/22/18 04:09 Blood - Peripheral Anaerobic Blood Culture - Preliminary No growth in 2 days - Imaging ITS Impressions Chest X-Ray 02/22/18 21:54 CONCLUSION: Cardiomegaly with dense left basilar airspace disease. Pacer lead overlies right ventricle. Findings similar to earlier exam. - Procedures NONE Assessment and Plan - Plan CHF exacerbation. Cardiomyopathy with ejection fraction 20% measured on echocardiogram previous year Sinus tachycardia on admission Follows with Dr. Grant--CARDIOLOGY CONSULTED -Chest x-ray with possible left lower lobe consolidation. -BNP above 3000. -EKG -left axis deviation, left ventricular hypertrophy EKG unchanged from baseline. = Diuresis and monitor. Patient says she is on metoprolol at home. Patient has a pacer, expect that she needs rate control for improved function. Will have home medications reconciled. Start on metoprolol. Consult cardiology. COPD exacerbation Community-acquired pneumonia -Chest x-ray with left lower lobe consolidation. Could be infection Continue patient's home Brio. Duo nebs as needed Antibiotics. Continue to monitor MUCINEX-DUONEBS- BREO CONTINUE ANTIBIOTICS Diabetes -Insulin sliding scale. Await home medication reconciliation. History of atrial fibrillation Status post pacemaker. Await home medication reconciliation. Cardiology to be consulted as above. HYPERLIPIDEMIA- RESUME HOME STATIN CHRONIC PREDNISONE -CONTINUE NEEDS ANTICOAGULANT GI PROPHYLAXIS DC IN NEXT 24 TO 48 HOURS AM LABS Code Status: FULL CODE Discussed Condition With: RN AND PT Discharge Planning: PENDING IMPROVEMENT AND CARDIAC CLEARANCE
[2018-02-25] MEDS: predniSONE 20 MG Tablet PO SCH (12:08)
[2018-02-26 05:03] LABS: Baso % (Auto) 0.4 % (0.0-2.0); Hematocrit 35.8 % (35.0-46.0); Hemoglobin 11.8 gm/dL (11.6-15.3); Lymph # (Auto) 0.4 th/mm3 (1.0-4.8); Lymph % (Auto) 13.3 % (9.0-44.0); Mean Corpuscular HGB Conc 32.8 % (32.0-36.0); Mean Corpuscular Volume 97.4 fL (80.0-100.0); Mono # (Auto) 0.4 th/mm3 (0.0-0.9); Mono % (Auto) 14.8 % (0.0-8.0); Neut % (Auto) 71.5 % (16.0-70.0); Platelet Count 140 th/mm3 (150-450); Red Blood Count 3.68 mil/mm3 (4.00-5.30); Red Cell Distribution Width 14.5 % (11.6-17.2); White Blood Count 2.7 th/mm3 (4.0-11.0)
[2018-02-26 05:27] LABS: Albumin 3.2 g/dL (3.4-5.0); Anion Gap 7 meq/L (5-15); Aspartate Aminotransferase 30 U/L (15-37); Blood Urea Nitrogen 13 mg/dL (7-18); Calcium 8.4 mg/dL (8.5-10.1); Carbon Dioxide 38.5 meq/L (21.0-32.0); Chloride 95 meq/L (98-107); Glomerular Filtration Rate 77 mL/min (>89); Glucose,Random 147 mg/dL (74-106); Sodium 140 meq/L (136-145)
[2018-02-26 05:29] LABS: Alanine Aminotransferase 31 U/L (10-53); Phosphorus 3.7 mg/dL (2.5-4.9)
[2018-02-26 05:30] LABS: Alkaline Phosphatase 82 U/L (45-117); Total Protein 6.5 g/dL (6.4-8.2)
[2018-02-26] MEDS: Insulin NovoLOG Aspart Correctional Sugar Inj SQ SCH ×4 (10:24→21:01)
[2018-02-26] MEDS: Enoxaparin Inj 40 MG/0.4 ML Syringe SQ SCH (10:26)
[2018-02-26] MEDS: predniSONE 20 MG Tablet PO SCH (10:26)
[2018-02-26] MEDS: Famotidine 20 MG Tablet PO SCH ×2 (10:27→21:00)
[2018-02-26] MEDS: Azithromycin 250 MG Tablet PO SCH (10:27)
[2018-02-26] MEDS: Potassium Chloride 10 MEQ ER Capsule PO SCH ×2 (10:27→21:00)
[2018-02-26] MEDS: Spironolactone 25 MG Tablet PO SCH (10:27)
[2018-02-26] MEDS: guaiFENesin 600 MG ER Tablet PO SCH ×2 (10:27→21:00)
[2018-02-26] MEDS: Metoprolol Tartrate 50 MG Tablet PO SCH (10:28)
[2018-02-26] MEDS: Lisinopril 20 MG Tablet PO SCH (10:28)
[2018-02-26] MEDS: Senna/Docusate Sodium 8.6/50 MG Tablet PO SCH ×2 (10:28→21:01)
[2018-02-26] MEDS: Sodium Chloride 0.9% 2 ML Flush BID IV.FLUSH SCH ×2 (10:28→21:01)
[2018-02-26] MEDS: Furosemide 40 MG Tablet PO SCH ×2 (10:30→20:38)
--- NOTE | 2018-02-26 16:10 | P.PNIM ---
Subjective Interval history: Patient states that her sob has improved. usually is on 3 L of oxygen at home. She prefers to go home rather than going to rehab. She already has HHC at home Physical Exam Vital signs: Vital Signs 02/25/18 16:00 02/25/18 17:00 02/25/18 18:00 Temperature Pulse Rate 70 72 72 Respiratory Rate Blood Pressure Pulse Oximetry 02/25/18 19:00 02/25/18 20:00 02/25/18 20:40 Temperature 97.4 F L Pulse Rate 81 81 80 Respiratory Rate 18 18 Blood Pressure 96/59 L Pulse Oximetry 96 99 02/25/18 21:00 02/25/18 22:00 02/25/18 23:00 Temperature 97.9 F Pulse Rate 80 84 81 Respiratory Rate 18 Blood Pressure 93/61 L Pulse Oximetry 96 02/26/18 00:00 02/26/18 01:00 02/26/18 02:00 Temperature Pulse Rate 83 85 75 Respiratory Rate Blood Pressure Pulse Oximetry 02/26/18 03:00 02/26/18 04:00 02/26/18 05:00 Temperature 97.8 F Pulse Rate 78 84 78 Respiratory Rate 18 Blood Pressure 95/60 L Pulse Oximetry 95 02/26/18 06:00 02/26/18 07:00 02/26/18 08:00 Temperature 98.2 F Pulse Rate 79 77 77 Respiratory Rate 18 Blood Pressure 100/59 L Pulse Oximetry 94 L 02/26/18 09:00 02/26/18 09:29 02/26/18 10:00 Temperature Pulse Rate 82 73 81 Respiratory Rate 18 Blood Pressure Pulse Oximetry 99 02/26/18 10:28 02/26/18 11:00 02/26/18 11:07 Temperature 97.5 F L Pulse Rate 88 Respiratory Rate 16 Blood Pressure 93/52 L 100/62 Pulse Oximetry 95 94 L 02/26/18 12:00 02/26/18 13:00 Temperature Pulse Rate 80 83 Respiratory Rate Blood Pressure Pulse Oximetry Intake & Output 02/25/18 02/26/18 02/26/18 18:59 06:59 18:59 Intake Total 1000 / 1000 480 / 480 100 / 100 Output Total 350 / 350 200 / 200 Balance 650 / 650 280 / 280 100 / 100 Weight 61 kg Intake: IV 100 / 100 100 / 100 Rocephin Inj 1,000 MG In NS Inj 100 / 100 100 / 100 100 ML @ 200 mls/hr IV.SIG Q24H [facility] Rx#:[id number] Oral 900 / 900 480 / 480 Output: Urine 350 / 350 200 / 200 Other: # Voids 1 Date of Last Bowel Movement 02/25/18 02/25/18 # Bowel Movements 1 Narrative: GENERAL: This is a well-nourished, well-developed patient, in no apparent distress. CARDIOVASCULAR: Regular rate and rhythm with 2/6 REGLA RESPIRATORY: few crackles left base GASTROINTESTINAL: Abdomen soft, non-tender, nondistended. Normal active bowel sounds MUSCULOSKELETAL: Extremities without clubbing, cyanosis, trace edema NEURO: Alert & Oriented x4 to person, place, time, situation. Moves all ext x4 Results - Labs CBC & Chem 7: 02/26/18 04:05 02/26/18 04:05 Laboratory Results - last 24 hr 02/25/18 02/25/18 02/26/18 16:35 20:36 04:05 WBC 2.7 L RBC 3.68 L Hgb 11.8 Hct 35.8 MCV 97.4 MCH 32.0 MCHC 32.8 RDW 14.5 Plt Count 140 L MPV 11.0 Neut % (Auto) 71.5 H Lymph % (Auto) 13.3 [place] % (Auto) 14.8 H Eos % (Auto) 0.0 Baso % (Auto) 0.4 Neut # (Auto) 2.0 Lymph # (Auto) 0.4 L [place] # (Auto) 0.4 Eos # (Auto) 0.0 Baso # (Auto) 0.0 WBC Differential . Differential Comment Auto diff final Sodium Potassium Chloride Carbon Dioxide Anion Gap BUN Creatinine Estimated GFR POC Glucose 154 H 174 H Random Glucose Calcium Phosphorus Magnesium Total Bilirubin AST ALT Alkaline Phosphatase B-Natriuretic Peptide Total Protein Albumin 02/26/18 02/26/18 02/26/18 04:05 04:05 08:18 WBC RBC Hgb Hct MCV MCH MCHC RDW Plt Count MPV Neut % (Auto) Lymph % (Auto) [place] % (Auto) Eos % (Auto) Baso % (Auto) Neut # (Auto) Lymph # (Auto) [place] # (Auto) Eos # (Auto) Baso # (Auto) WBC Differential Differential Comment Sodium 140 Potassium 4.0 Chloride 95 L Carbon Dioxide 38.5 H Anion Gap 7 BUN 13 Creatinine 0.87 Estimated GFR 77 L POC Glucose 127 H Random Glucose 147 H Calcium 8.4 L Phosphorus 3.7 Magnesium 2.0 Total Bilirubin 0.3 AST 30 ALT 31 Alkaline Phosphatase 82 B-Natriuretic Peptide 2883 H Total Protein 6.5 Albumin 3.2 L 02/26/18 12:03 WBC RBC Hgb Hct MCV MCH MCHC RDW Plt Count MPV Neut % (Auto) Lymph % (Auto) [place] % (Auto) Eos % (Auto) Baso % (Auto) Neut # (Auto) Lymph # (Auto) [place] # (Auto) Eos # (Auto) Baso # (Auto) WBC Differential Differential Comment Sodium Potassium Chloride Carbon Dioxide Anion Gap BUN Creatinine Estimated GFR POC Glucose 118 H Random Glucose Calcium Phosphorus Magnesium Total Bilirubin AST ALT Alkaline Phosphatase B-Natriuretic Peptide Total Protein Albumin Microbiology 02/22/18 04:04 Blood - Peripheral Aerobic Blood Culture - Preliminary No growth in 4 days 02/22/18 04:04 Blood - Peripheral Anaerobic Blood Culture - Preliminary No growth in 4 days 02/22/18 04:09 Blood - Peripheral Aerobic Blood Culture - Preliminary No growth in 4 days 02/22/18 04:09 Blood - Peripheral Anaerobic Blood Culture - Preliminary No growth in 4 days - Procedures NONE Assessment and Plan - Plan 77 y/o WF presents with SOB, cough with Acute on chronic systolic CHF exacerbation. Cardiomyopathy with ejection fraction 20% measured on echocardiogram previous year, repeat ECHO shows EF 20% withe MR and TR appreciate Dr. Medellin covering for Dr. García recommendations Continue diuretics, lasix and aldactone COPD exacerbation, acute - Oxygen dependent Duoneb, wean oxygen as tolerated Community-acquired pneumonia -Chest x-ray with left lower lobe consolidation. Antibiotics rocephin and zithromax. Diabetes mellitus, type 2 controlled, noninsulin dependent -Insulin sliding scale. History of atrial fibrillation Status post pacemaker. on BB dvt prophylaxis - lovenox DC planning for am with HHC Discharge Planning: C when clinically stable
--- NOTE | 2018-02-26 16:17 | P.DCO ---
- Diagnosis (1) Community acquired pneumonia Status: Chronic (2) Acute on chronic systolic (congestive) heart failure Status: Resolved - Physical Therapy Order: Evaluate and treat - Case Management Consult Yes - Certification I have seen patient Kapil Chapa on 02/26/18. My clinical findings support the need for the requested home health care services because: Patient has SOB I certify that my clinical findings support that this patient is homebound because: Poor cardiac reserve (1) Community acquired pneumonia Qualifiers: Laterality: left Lung location: lower lobe of lung Qualified Code(s): J18.1 - Lobar pneumonia, unspecified organism
[2018-02-27] MEDS: Insulin NovoLOG Aspart Correctional Sugar Inj SQ SCH ×3 (08:44→17:30)
[2018-02-27] MEDS ORDERED: Lisinopril 20 MG Tablet PO SCH (09:00)
[2018-02-27] MEDS: Potassium Chloride 10 MEQ ER Capsule PO SCH (11:16)
[2018-02-27] MEDS: predniSONE 20 MG Tablet PO SCH (11:17)
[2018-02-27] MEDS: Spironolactone 25 MG Tablet PO SCH (11:17)
[2018-02-27] MEDS: Azithromycin 250 MG Tablet PO SCH (11:17)
[2018-02-27] MEDS: Senna/Docusate Sodium 8.6/50 MG Tablet PO SCH (11:18)
[2018-02-27] MEDS: guaiFENesin 600 MG ER Tablet PO SCH (11:18)
[2018-02-27] MEDS: Famotidine 20 MG Tablet PO SCH (11:18)
[2018-02-27] MEDS: Enoxaparin Inj 40 MG/0.4 ML Syringe SQ SCH (11:18)
[2018-02-27] MEDS: Sodium Chloride 0.9% 2 ML Flush BID IV.FLUSH SCH (11:20)
[2018-02-27] MEDS: Furosemide 40 MG Tablet PO SCH ×2 (11:25→17:34)
[2018-02-27 17:41] VITALS: BP 103/78; PULSE 88; RESP 14; O2SAT 93
[2018-02-27 17:47] VITALS: TEMP 98
--- NOTE | 2018-02-27 19:05 | P.DS ---
Date of admission: 02/22/18 04:08 Primary care physician: Abeba Ramirez MD Brief History from admission: 77-year-old female with a history of CHF, cardiomyopathy with ejection fraction less than 20%, COPD who presents with a 3-day history of cough productive of white sputum, and progressively worsening shortness of breath. She reports chronic bilateral lower extremity edema without recent worsening. She denies any changes in medications or running out of any medications. Denies any chest pain. Has had some nausea today without any vomiting. Denies any abdominal pain. DS: Medications - Discharge Medications Prescriptions: carvedilol [Coreg] 3.125 mg PO BID #60 tab lisinopril 10 mg PO DAILY #30 tab DS: Summary Hospital Course: This patient is a 77-year-old female with a diagnosis of systolic CHF ejection fraction 20%, COPD on 3 L of supplemental oxygen at home, extensive tobacco smoking history and is an active tobacco smoker. The patient presented with complaints of shortness of breath as well as a cough. She also noted having worsening lower extremely and was subsequently admitted for a systolic CHF exacerbation and COPD exacerbation. 1. Acute on chronic systolic CHF exacerbation 2. COPD exacerbation 3. Left lower lobe pneumonia 4. Tobacco abuse The patient presented with the symptoms mentioned above. BNP was elevated, and on physical examination the patient had symptoms of a seat CHF exacerbation. The patient initially was started on IV diuresis and then transitioned to p.o. Lasix. The patient's symptoms did improve after diuresis. She is to continue a beta-alonso, MARIO inhibitor, p.o. Lasix. The patient was evaluated by cardiology during the hospitalization and recommends continuing with medical management. She should follow-up with her primary care physician in the next 1 week and should also continue to follow-up outpatient with cardiology given the patient's very poor EF. Patient was also started on breathing treatments as well as steroids. On physical examination when the patient arrived she did have wheezing. Chest x- ray showed a left lower lobe consolidation and the patient was started on IV antibiotics. Patient has received IV antibiotics while she was in house. She will be discharged on 3 more days of cefuroxime. The patient's symptoms have improved and she is now at her baseline 3 L of supplemental oxygen. The patient is still an active smoker. The risks of continued smoking were discussed in detail the patient. She now agrees to avoid smoking. The patient' s daughter is at bedside and understands and agrees with the current plan in place. The patient says that she has her inhalers at home and was advised to continue to use them. The patient will be discharged home today with home health. - Time Spent with Patient Total time spent providing and/or coordinating discharge services: Greater than 30 minutes - Quality: VTE Deep Vein Thrombosis/Pulmonary Embolism Present on Admission: No Exam Vital signs: Vital Signs 02/26/18 19:00 02/26/18 19:31 02/26/18 20:00 Temperature 97.6 F Pulse Rate 90 89 110 H Respiratory Rate 16 16 Blood Pressure 102/63 Pulse Oximetry 93 L 99 93 L 02/26/18 21:00 02/26/18 22:00 02/26/18 23:00 Temperature 98.0 F Pulse Rate 106 H 99 H 89 Respiratory Rate 16 Blood Pressure 89/52 L Pulse Oximetry 97 02/27/18 00:00 02/27/18 00:35 02/27/18 01:00 Temperature Pulse Rate 79 77 85 Respiratory Rate 18 Blood Pressure Pulse Oximetry 02/27/18 02:00 02/27/18 03:00 02/27/18 04:00 Temperature 99 F Pulse Rate 81 81 84 Respiratory Rate 14 Blood Pressure 105/47 L Pulse Oximetry 93 L 02/27/18 05:00 02/27/18 05:09 02/27/18 06:00 Temperature Pulse Rate 86 85 91 H Respiratory Rate 18 Blood Pressure Pulse Oximetry 02/27/18 07:54 02/27/18 07:55 02/27/18 07:59 Temperature 97.9 F Pulse Rate 80 84 Respiratory Rate 16 20 Blood Pressure 94/68 L Pulse Oximetry 92 L 96 02/27/18 08:51 02/27/18 11:20 02/27/18 16:19 Temperature Pulse Rate 82 84 Respiratory Rate 18 18 Blood Pressure Pulse Oximetry 92 L 02/27/18 17:39 Temperature 98.0 F Pulse Rate 88 Respiratory Rate 14 Blood Pressure 103/78 Pulse Oximetry 93 L Intake & Output 02/26/18 02/27/18 02/27/18 18:59 06:59 18:59 Intake Total 580 / 580 480 / 480 Output Total 201 / 201 1600 / 1600 Balance 379 / 379 -1120 / -1120 Weight 61 kg Intake: IV 100 / 100 Rocephin Inj 1,000 MG In NS Inj 100 / 100 100 ML @ 200 mls/hr IV.SIG Q24H [facility] Rx#:[id number] Oral 480 / 480 480 / 480 Output: Urine 200 / 200 1600 / 1600 Stool Other: # Voids 1 Date of Last Bowel Movement 02/25/18 02/26/18 02/26/18 # Bowel Movements 1 Narrative: General patient in no acute distress, nasal cannula in place HEENT extraocular movements are intact, clear oropharyngeal mucosa Cardiovascular S1-S2 audible, RRR, no murmurs rubs or gallops Respiratory clear to auscultation bilaterally Abdomen soft, nontender, nondistended, normal bowel sounds Extremities no edema 2+ distal pulses in bilateral upper and lower extremities Neuro patient moves all 4 extremities and sensation is intact bilaterally. Results Procedures completed during hospitalization: NONE Labs on day of discharge: Labs from last 24 hours 02/27/18 02/27/18 02/27/18 17:26 11:27 07:55 POC Glucose 144 H 98 102 02/26/18 20:57 POC Glucose 197 H - Impressions ITS Impressions Chest X-Ray 02/22/18 21:54 CONCLUSION: Cardiomegaly with dense left basilar airspace disease. Pacer lead overlies right ventricle. Findings similar to earlier exam. Discharge Plan - Discharge Disposition Patient Disposition: /Home Health Service - Discharge Condition Condition: Good - Discharge Order Discharge Orders: Discharge Order (Routine); Ordered 02/27/18 Ordered By: Lorri Emmanuel - Discharge Details Anticipated Discharge Date: 02/27/18 - Physicians Team Primary Care Provider: Abeba Ramirez Attending Provider: Lorri Emmanuel Other Providers: Ciarra Medellin MD ; Elvira Felix
== END 2018-02-27 20:45 | disposition home health service (06) ==
LOC: NEPE 02:03 → NEDA 04:08 → N04 05:53 → HCPC 22:42 → HCIS 02-26 13:43
PROVIDERS: ADMIT Hospitalist; ATTEND Hospitalist